=== PATIENT | male | born 1945 | race African-American/Black ===

== ENCOUNTER 2017-03-19 10:34 | Emergency (ER) | payer MEDICARE, OTHER ==
--- NOTE | 2017-03-19 10:46 | UC ---
Dizzy HPI HPI Summary: LAST NIGHT STARTED FEELING LIGHTHEADED AND OVERALL UNWELL. DID NOT SLEEP WELL. WAS COUGHING WITH POST-TUSSIVE EMESIS MULTIPLE TIMES THROUGHOUT THE NIGHT. THIS MORNING FEELS MORE LIGHTHEADED AND SOB. DENIES FEVER OR CHEST PAIN. NO NAUSEA. HAS SCRATCHY THROAT. FEELS VERY TIRED. - History Of Current Complaint Stated Complaint: SORE THROAT, AND DIZZINESS Time Seen by Provider: 03/19/17 10:43 Hx Obtained From: Patient Onset/Duration: Sudden Onset, Lasting Hours, Still Present Timing: Constant Severity Initially: Moderate Severity Currently: Moderate Character: Lightheaded Aggravating Factor(s): Exertion Alleviating Factor(s): Rest Associated Signs And Symptoms: Positive: SOB. Negative: Nausea, Vomiting, Chest Pain, Palpitations, Unsteady Gait - Allergies/Home Medications Allergies/Adverse Reactions: Allergies Allergy/AdvReac Type Severity Reaction Status Date / Time Penicillins Allergy Unknown Unknown Verified 03/19/17 10:55 Reaction Details Morphine Allergy Vomiting Verified 03/19/17 10:55 PMH/Surg Hx/FS Hx/Imm Hx Cardiovascular History: Hypertension Cancer History: Prostate Cancer Other History Of: Negative For: HIV, Hepatitis B, Hepatitis C, Anticoagulant Therapy - Surgical History Surgical History: Yes Surgery Procedure, Year, and Place: PROSTATE REMOVED/ [facility], BILAT. KNEE - Family History Known Family History: Positive: Cardiac Disease, Hypertension - Social History Alcohol Use: Daily Substance Use Type: None Smoking Status (MU): Never Smoked Tobacco Review of Systems Constitutional: Fatigue ENT: Sore Throat Respiratory: Shortness Of Breath, Cough Cardiovascular: Negative Gastrointestinal: Negative All Other Systems Reviewed And Are Negative: Yes Physical Exam Triage Information Reviewed: Yes Appearance: No Pain Distress, Well-Nourished, Ill-Appearing - IILD Eyes: Positive: Conjunctiva Clear ENT: Positive: Hearing grossly normal, Pharynx normal Neck: Positive: Supple, Nontender, No Lymphadenopathy Respiratory: Positive: Normal breath sounds, Decreased breath sounds, Other: - INCREASED WOB Cardiovascular: Positive: Tachycardia Abdomen Description: Positive: Soft Musculoskeletal: Positive: No Edema Neurological: Positive: Alert Psychological: Positive: Age Appropriate Behavior Skin: Negative: rashes Diagnostics - Laboratory Diagnostic Studies Completed/Ordered: EKG WITH RIGHT BUNDLE BRANCH BLOCK. NO PREVIOUS EKG ON SYSTEM TO COMPARE. - EKG Cardiac Rate: Tachycardia Ectopy: None ST Segment: Normal Dizzy Course/Dx - Course Course Of Treatment: TO [facility] [place] ED BY AMBULANCE - Differential Dx/Diagnosis Provider Diagnoses: SOB/TACHYCARDIA/LIGHTHEADED - Physician Notifications Discussed Patient Care With: Kelsi Lerma - TO [facility] [place] ED BY AMBULANCE Time Discussed With Above Provider: 11:15 Instructed by Provider To: Will See In ED Discharge - Discharge Plan Condition: Stable Disposition: TRANS HIGHER LVL OF CARE FAC Referrals: Tootie Livingston MD [Primary Care Provider] -
[2017-03-19 11:11] VITALS: BP 130/70
== END 2017-03-19 11:35 | disposition short-term general hospital (02) ==
LOC: UCEAST 10:34
DX: R06.02 Shortness of breath (principal); R00.0 Tachycardia, unspecified; R42 Dizziness and giddiness; R05 Cough; I10 Essential (primary) hypertension; Z88.0 Allergy status to penicillin; Z88.5 Allergy status to narcotic agent
CPT/HCPCS: 93005; 99213; G0463

== ENCOUNTER 2017-03-19 11:56 | Observation (INO) | payer MEDICARE, OTHER ==
[2017-03-19] MEDS ORDERED: Acetaminophen TAB* 325 MG PO ONE (12:37)
[2017-03-19 12:43] LABS: Hematocrit 42 % (42-52); Hemoglobin 14.1 g/dl (14.0-18.0); Mean Corpuscular HGB Conc 34 g/dl (31-36); Mean Corpuscular Hemoglobin 29 pg (27-31); Mean Corpuscular Volume 85 fL (80-94); Mean Platelet Volume 8 um3 (7.4-10.4); Red Blood Count 4.95 10^6/ul (4.0-5.4); Red Cell Distribution Width 15 % (10.5-15)
[2017-03-19] MEDS: NS 0.9% 1000 ML* 2,000 ML IV ONE ×2 (12:49→14:09)
[2017-03-19 13:02] LABS: Albumin 3.9 g/dL (3.2-5.2); BUN/Creatinine Ratio 12.2 (8-20); C Reactive Protein 85.67 mg/L (< 5.00); Calcium 9.3 mg/dL (8.6-10.3); EGFR African American 80.2 (>60); EGFR Non-African American 62.3 (>60); Globulin 3.3 g/dL (2-4); Magnesium 1.9 mg/dL (1.9-2.7); Potassium 2.9 mmol/L (3.5-5.0); Total Bilirubin 0.7 mg/dL (0.2-1.0); Total Protein 7.2 g/dL (6.4-8.9); Troponin I 0.03 ng/mL (<0.04)
--- NOTE | 2017-03-19 13:07 | RAD ---
Indication: Tachycardia, shortness of breath. Single frontal view of the chest performed at 1247 hours was reviewed. Comparison is made with previous exam dated March 19, 2017. No mediastinal shift is noted. Heart is of normal size and configuration. Lung maya appear clear. IMPRESSION: NO ACTIVE CARDIOPULMONARY DISEASE IS NOTED.
[2017-03-19] MEDS ORDERED: cefTRIAXone(*) 1 GM in NS 0.9% 50 ML* 50 ML IVPB ONE (13:22)
[2017-03-19] MEDS ORDERED: Azithromycin IV(*) 500 MG in NS 0.9% 250 ML* 250 ML IVPB ONE (13:22)
[2017-03-19 13:25] LABS: TSH (Thyroid Stimulating Horm) 0.8 mcIU/mL (0.34-5.60)
[2017-03-19] MEDS ORDERED: Iohexol 350* (CONTRAST) 500 ML MDV IV ONE (13:26)
[2017-03-19] MEDS ORDERED: Potassium Chlor TAB* 20 MEQ TAB.ER PO ONE (13:47)
--- NOTE | 2017-03-19 14:19 | RAD ---
Indication: Shortness of breath, tachycardia. Contrast: Administered 88.0 ml of OMNIPAQUE 350 mg/ml CTA of the chest was performed after IV contrast administration. Coronal and sagittal reconstructed images were obtained. Inferior thyroid lobes are unremarkable there is a low density lesion in the lower pole left lobe measuring up to 15 mm. There is no mediastinal or hilar adenopathy noted. The heart demonstrates no pericardial effusion. The trachea and major bronchi appear patent. No pleural fluid, nodules or masses are noted. The pulmonary arterial tree is well opacified. No evidence of filling defects are noted to suggest pulmonary embolus. No evidence of thoracic aortic aneurysm or dissection is noted. Atherosclerotic aorta is noted. Coronary artery calcifications are noted. IMPRESSION: NO PULMONARY EMBOLUS IS NOTED. NO EVIDENCE OF THORACIC AORTIC DISSECTION OR ANEURYSMAL DILATATION. LOWER POLE LEFT LOBE THYROID NODULE.
[2017-03-19] MEDS ORDERED: Ondansetron INJ* 2 MG/ML VIAL IV PRN (14:49)
[2017-03-19] MEDS ORDERED: NS 0.9% 1000 ML* 1,000 ML IV ONE (14:49)
[2017-03-19] MEDS ORDERED: NS 0.9% 1000 ML* 1,000 ML IV SCH (15:00)
[2017-03-19] MEDS: Acetaminophen TAB* 325 MG PO PRN ×2 (16:13→22:28)
[2017-03-19] MEDS: Hydrocortisone INJ* 100 MG VIAL IV SCH ×2 (17:26→22:18)
[2017-03-19] MEDS: KCL 10 MEQ/50 ML IVPREMIX* 10 MEQ/50 ML BAG IV SCH ×4 (17:49→23:49)
[2017-03-19] MEDS ORDERED: traMADol TAB* 50 MG PO ONE (18:00)
--- NOTE | 2017-03-19 19:49 | ED ---
Alvarado Johnson Natalie, scribed for Eyad Tabor MD on 03/19/17 at 1300 . Respiratory - HPI Summary HPI Summary: The pt is a 71 y/o M BIBA to the ED from [facility] c/o respiratory issues starting last night. The pain is rated 7/10 in severity. The pain is aggravated by nothing and is alleviated by nothing. 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 Pt additionally c/o nonproductive cough, SOB, generalized weakness all over, fever, sore throat, and vomiting. Pt denies chest pain, abd pain, and swelling in ankles. Someone he lives with has bronchitis. The pt doesnt have a history of atrial fibrillation. He takes a diuretic for HTN. - History of Current Complaint Chief Complaint: EDFever Stated Complaint: GENERAL ILLNESS COMING FROM [facility] Time Seen by Provider: 03/19/17 12:30 Hx Obtained From: Patient Onset/Duration: Sudden Onset, Still Present - started last night Initial Severity: Moderate Current Severity: Moderate Pain Intensity: 7 Character: Cough (Nonproductive) Sputum Amount: None Aggravating Factor(s): Nothing Alleviating Factor(s): Nothing Associated Signs and Symptoms: Negative - chest pain, swelling in ankles, Fever , SOB - Allergy/Home Medications Allergies/Adverse Reactions: Allergies Allergy/AdvReac Type Severity Reaction Status Date / Time Penicillins Allergy Unknown Unknown Verified 03/19/17 10:55 Reaction Details Morphine Allergy Vomiting Verified 03/19/17 10:55 Home Medications: Home Medications Metoprolol Tartrate TAB* [Lopressor TAB*] 50 mg PO BID 03/19/17 [History Confirmed 03/19/17] Zoledronic Acid* [Zometa] 4 mg .SEE ORDER SEE INSTRUCTIONS 03/19/17 [History Confirmed 03/19/17] PMH/Surg Hx/FS Hx/Imm Hx Previously Healthy: No Endocrine/Hematology History: Denies: Hx Anticoagulant Therapy, Hx Diabetes, Hx Systemic Lupus Erythematosus, Hx Thyroid Disease Cardiovascular History: Reports: Hx Hypertension Denies: Hx Congestive Heart Failure, Hx Deep Vein Thrombosis, Hx Myocardial Infarction, Hx Pacemaker/ICD Respiratory History: Denies: Hx Asthma, Hx Chronic Obstructive Pulmonary Disease (COPD), Hx Lung Cancer, Hx Pneumonia, Hx Pulmonary Embolism GI History: Denies: Hx Gall Bladder Disease, Hx Gastrointestinal Bleed, Hx Ulcer, Hx Urosepsis History: Reports: Hx Kidney Stones - He was diagnosed 1997. Denies: Hx Dialysis, Hx Renal Disease Musculoskeletal History: Denies: Hx Rheumatoid Arthritis Neurological History: Denies: Hx Dementia, Hx Migraine, Hx Seizures, Hx Transient Ischemic Attacks (TIA) Psychiatric History: Denies: Hx Anxiety, Hx Depression, Hx Schizophrenia, Hx Bipolar Disorder - Cancer History Cancer Type, Location and Year: Prostate - 1997 Hx Chemotherapy: No - Surgical History Surgery Procedure, Year, and Place: PROSTATE REMOVED/ [facility] SUR[facility], BILAT. KNEE Infectious Disease History: No Infectious Disease History: Reports: Hx Shingles - 1994 Denies: Hx Clostridium Difficile, Hx Hepatitis, Hx Human Immunodeficiency Virus (HIV), Hx of Known/Suspected MRSA, Hx Tuberculosis, Hx Known/Suspected VRE , Hx Known/Suspected VRSA, History Other Infectious Disease, Traveled Outside the [place] in Last 30 Days - Family History Known Family History: Positive: Cardiac Disease, Hypertension - Social History Alcohol Use: Daily Substance Use Type: Reports: None Smoking Status (MU): Never Smoked Tobacco Review of Systems Positive: Fever Positive: Sore Throat Negative: Chest Pain Positive: Shortness Of Breath, Cough Positive: Vomiting. Negative: Abdominal Pain Negative: Edema - in ankles Positive: Weakness All Other Systems Reviewed And Are Negative: Yes Physical Exam Triage Information Reviewed: Yes Vital Signs On Initial Exam: Initial Vitals Temp Pulse Resp BP Pulse Ox 100.5 F 137 26 136/84 95 03/19/17 12:12 03/19/17 12:12 03/19/17 12:12 03/19/17 12:12 03/19/17 12:12 Vital Signs Reviewed: Yes Appearance: Positive: Ill-Appearing Skin: Positive: Warm, Skin Color Reflects Adequate Perfusion Head/Face: Positive: Normal Head/Face Inspection Eyes: Positive: EOMI, KENNEDY ENT: Positive: Other - oral mucous moist Respiratory/Lung Sounds: Positive: Breath Sounds Present, Rhonchi Cardiovascular: Positive: IRR, Tachycardia Abdomen Description: Positive: Nontender, Soft Bowel Sounds: Positive: Present Male Genital Exam: Positive: normal genitalia Musculoskeletal: Positive: Other - generalized weakness, trace pedal edema bilaterally Neurological: Positive: Normal, Sensory/Motor Intact, Alert, Oriented to Person Place, Time, Other - no neurological focal deficit Psychiatric: Positive: Affect/Mood Appropriate Diagnostics - Vital Signs Vital Signs Temp Pulse Resp BP Pulse Ox 03/19/17 12:12 100.5 F 137 26 136/84 95 - Laboratory Lab Results: Lab Results 03/19/17 Range/Units 12:25 WBC 11.0 H (3.5-10.8) 10^3/ul RBC 4.95 (4.0-5.4) 10^6/ul Hgb 14.1 (14.0-18.0) g/dl Hct 42 (42-52) % MCV 85 (80-94) fL MCH 29 (27-31) pg MCHC 34 (31-36) g/dl RDW 15 (10.5-15) % Plt Count 198 (150-450) 10^3/ul MPV 8 (7.4-10.4) um3 Neut % (Auto) 78.6 (38-83) % Lymph % (Auto) 7.6 L (25-47) % Irion % (Auto) 12.3 H (1-9) % Eos % (Auto) 0.3 (0-6) % Baso % (Auto) 1.2 (0-2) % Absolute Neuts (auto) 8.7 H (1.5-7.7) 10^3/ul Absolute Lymphs (auto) 0.8 L (1.0-4.8) 10^3/ul Absolute Monos (auto) 1.4 H (0-0.8) 10^3/ul Absolute Eos (auto) 0 (0-0.6) 10^3/ul Absolute Basos (auto) 0.1 (0-0.2) 10^3/ul Absolute Nucleated RBC 0.01 10^3/ul Nucleated RBC % 0.1 Result Diagrams: 03/19/17 12:25 03/19/17 12:25 Lab Statement: Any lab studies that have been ordered have been reviewed, and results considered in the medical decision making process. - Radiology CXR Xray Interpretation: No Acute Changes - No active cardiopulmonary disease is noted. ED physician has reviewed this report. Radiology Interpretation Completed By: Radiologist Chest/Thorax CTA Xray Interpretation: No Acute Changes - 1. No pulmonary embolus is noted. No evidence of thoracic aortic dissection or Aneurysmal dilatation. 2. Lower pole left lobe thyroid nodule. ED physician has reviewed this report. Radiology Interpretation Completed By: Radiologist - EKG 12:16 Cardiac Rate: Tachycardia EKG Rhythm: Atrial Fibrillation - rapid, 126 BPM EKG Interpretation: RBBB. ST depression. Anterior lateral leads. Disposition - Course Course Of Treatment: THE TOTAL 30ML/KG BOLUS FOR POTENTIAL SEPSIS NOT GIVEN DUE TO CONCERN OF POSSIBLE CHF; BNP ELEVATED. BP noted and advised to follow up with PCP. Allergies noted. Medications reviewed. EKG; UNCLEAR IF THIS IS NEW ONSET AFIB OR TACHYCARDIA WITH ECTOPY. ADMIT HOSPITALIST. CRITICAL CARE TIME LAEE THAN 30 MINUTES. - Diagnoses Provider Diagnoses: Tachycardia, Fever, Weakness Discharge - Discharge Plan Condition: Stable Disposition: ADMITTED TO [facility] documentation as recorded by the Alvarado crain Natalie accurately reflects the service I personally performed and the decisions made by me, Eyad Tabor MD.
[2017-03-19] MEDS: Metoprolol Tartrate TAB* 50 mg PO SCH (22:23)
--- NOTE | 2017-03-19 22:39 | HP ---
CC: Dr. Buckley; Dr. Gonzalez * HISTORY AND PHYSICAL: DATE OF ADMISSION: 03/19/17 PRIMARY CARE PROVIDER: Dr. Buckley. ATTENDING PHYSICIAN WHILE IN THE HOSPITAL: Dr. Cooley * (report being dictated by Eulalio Fournier NP). CHIEF COMPLAINT: Weakness. HISTORY OF PRESENT ILLNESS: Mr. Lynn is a 71-year-old male patient. He has a history of hypertension, prostate cancer, on Lupron and chronic steroid therapy and hyperlipidemia. He comes in to our ER today stating that last night he just was not feeling well. He woke up in the middle of the night. He was having episodes of vomiting. He has vomited about 5 times. He denied having any abdominal pain. He says he felt nauseous, weak. He had no diarrhea. He says that he has been coughing. He says that it has been hurting to cough. He denied having any chest pain or again abdominal pain. He says that he felt weak. He did not really want to eat. His appetite was down. He just was very tired. This was abnormal for him. He was concerned because he was not any better this morning. He decided to come into the ED. He denied any palpitations. He denied having any chest pain with the exception when he takes a deep breath, it does hurt. He denied having any shortness of breath. He denied having any worsening swelling, pain in the calves and denied having any loss of consciousness or any skin ulcerations or any rashes. He came into the ED, was evaluated. He was noted that he had a low- grade fever. He had a mild white count. He was noted to be hypokalemic. He appeared to be in an irregular heart beat, it is unclear if this was AFib, but, because of these findings, we were asked to evaluate for admission. PAST MEDICAL HISTORY: Significant for: 1. Hyperlipidemia. 2. Hypertension. 3. Prostate cancer. PAST SURGICAL HISTORY: 1. He has had a TURP. 2. Bilateral total knee replacement. 3. He has had a hernia repair. HOME MEDICATIONS: According to the list that he brought in includes: 1. Zometa 4 mg as prescribed IV. 2. Lopressor 50 mg p.o. b.i.d. 3. Allopurinol 300 mg p.o. daily. 4. Zytiga 1000 mg daily. 5. Simvastatin 20 mg daily. 6. Potassium 10 mEq p.o. daily. 7. Nifedipine 30 mg p.o. daily. 8. Lupron 30 mg IM as directed. 9. Prednisone 7.5 mg daily. 10. Maxzide 1 tablet p.o. daily. ALLERGIES TO MEDICATIONS: Include PENICILLIN and MORPHINE. FAMILY HISTORY: Mother had a history of diabetes. Father had a history of lung cancer. SOCIAL HISTORY: He does not smoke. He does not drink. Surrogate decision maker is his son, Roland. REVIEW OF SYSTEMS: There is a low-grade fever here of 100.5. There is no significant weight change. There was no double vision. He denied having any ear discharge. He denied having any rhinorrhea. No sore throat. No thyroid enlargement. He denied having any chest pain. There was no orthopnea. No nocturnal dyspnea. There was no abdominal pain. There was some nausea with vomiting. There was no dysuria. No frequency. There was no seizure. There was no loss of consciousness. No pruritus and no skin ulcerations. Review of 14- systems was completed, all others negative. PHYSICAL EXAMINATION GENERAL: At this time, Mr. Lynn is a 71-year-old male patient. He is sitting in the ED stretcher. He does not appear to be in acute distress. He just says that he feels weak. VITAL SIGNS: Blood pressure 116/83 with the pulse initially when he came in was 142, it is now 92, respirations were 22, his O2 sat was 97%, temperature 100.5. HEENT: Head: Atraumatic, normocephalic. Eyes: EOMs are intact. Sclerae anicteric, not pale. Throat: Oral mucosa appears to be dry. No oropharyngeal erythema. NECK: Supple. LUNGS: Clear to auscultation bilaterally. No wheezes, rales, or rhonchi. HEART: Sounds S1, S2. He is in a regular rate and rhythm. No murmurs, rubs, or gallops. ABDOMEN: Soft, flat, nontender. Bowel sounds present. EXTREMITIES: Pulses were 2+ throughout. He had no peripheral edema. He is moving all 4 extremities with 5/5 strength. NEUROLOGIC: The patient is awake, he is alert, he is oriented x3. His tongue is midline. Batch Dumper were equal. No gross focal deficits. SKIN: His skin was intact. DIAGNOSTIC STUDIES/LAB DATA: Labs revealed a WBC of 11.0, RBC of 4.95, hemoglobin of 14.1, hematocrit of 42, platelet count of 198. His INR was 1. His PTT was 34.5. His D-dimer was 304. His sodium was 138, potassium was 2.9, chloride was 103, his bicarb was 23, his BUN was 14, creatinine 1.15, glucose 139, lactic 2.9, calcium 9.3, mag 1.9, total bili 0.7, AST 22, ALT 17, alk phos 43. CK 88, CK-MB 1.5. Troponin 0.03. CRP of 85. BNP 251. Albumin 3.9, lipase was 30, TSH was normal. Cortisol is pending. Flu is negative. He had a chest CTA, which revealed no pulmonary embolus noted. No evidence of thoracic aortic dissection or aneurysmal dilatation. Lower pole left lobe thyroid nodule. He had a chest x-ray obtained today, which revealed no active cardiopulmonary disease. He had several EKGs here in the ED, his initial one appears to be a possible atrial fibrillation or atrial flutter, it is unclear. His heart rate was 129. He had a right bundle-branch block with no previous for comparison. No gross ST elevation was noted. I reviewed it with most recent one, where he has slowed down, his rate is 94, but again this could be a possible junctional rhythm. Some of these QRS are conducted with T-wave. He does have some QRS complex with no conduction, which may be atypical Aflutter or junctional rhythm. He does have a right bundle-branch block and again there are no signs of ST elevations at this point. There was a previous one back in 2002, which showed a normal sinus rhythm, rate of 61. Old medical records were reviewed. ASSESSMENT AND PLAN: Mr. Lynn is a 71-year-old male patient coming into the ED today with complaints of just not feeling well, fever, feeling very weak and fatigued. We were asked to evaluate for admission. He will be admitted under observation status for: 1. Weakness. I suspect he may have an underlying viral illness. He was given one dose of antibiotics here in the ED, but I am not going to continue those unless he spikes a high-grade fever or if his cultures come back. I am getting a urine as well, which is pending. His flu is negative. I am checking his cortisol level as well. He is on chronic steroids and if he has a viral illness , he may need stress dosed steroids. I am going to start them to see if this improves his symptoms. We will hydrate the patient. We will continue his supportive care. We will repeat the lactic acid as it was 3 and we will continue to follow. 2. Hypokalemia. We will replace this. 3. Irregular heart rate. At this point, he is back to rate 92. He appears he does have some irregular heart conduction at times, which may be a junctional, again atypical atrial flutter. I did touch base with Dr. Gonzalez, he will evaluate the patient. The plan would be replace his potassium, get that close to 4 as possible. I suspect it is low because he has been vomiting and taking the hydrochlorothiazide with the triamterene diuretics, which is probably why his potassium is low. We will replace this and we will follow. He may have a new onset AFib or atrial flutter and if that is determined to be the case, we will start him on Eliquis, but we are not going to start that just until after we replace the potassium and we are able to reevaluate. We will get an echo and he was warfarin in the past, but it was just for a DVT prevention due to a knee replacement. 4. Hypertension. I will continue his meds with the exception of the mild diuretic. 5. History of prostate cancer. Continue with Zytiga. 6. Hyperlipidemia. Continue statin therapy. 7. Code status. Full code. 8. Fluids, electrolytes and nutrition. He can have clear liquid diet. TIME SPENT: Time spent on admission was 60 minutes, greater than half the time was spent [id number] with the patient obtaining my history and physical, other half time was spent going over the plan of care with the patient and implementing plan of care. I did discuss the plan of care with my attending, Dr. Cooley, he is in agreement. EULALIO FOURNIER, GIAN [id number]/[facility] #: [id number] [facility]
[2017-03-19 22:57] LABS: Urine Bacteria Absent (Absent); Urine Bilirubin Negative (Negative); Urine Glucose 2+(150 mg/dL) (Negative); Urine Nitrite Negative (Negative)
[2017-03-20] MEDS: Acetaminophen TAB* 325 MG PO PRN (06:02)
[2017-03-20 06:08] LABS: Hematocrit 36 % (42-52); Hemoglobin 12.2 g/dl (14.0-18.0); Mean Corpuscular HGB Conc 34 g/dl (31-36); Mean Corpuscular Hemoglobin 29 pg (27-31); Mean Corpuscular Volume 85 fL (80-94); Mean Platelet Volume 8 um3 (7.4-10.4); Red Blood Count 4.27 10^6/ul (4.0-5.4); Red Cell Distribution Width 15 % (10.5-15)
[2017-03-20 06:20] LABS: BUN/Creatinine Ratio 14.6 (8-20); EGFR African American 118.4 (>60); EGFR Non-African American 92.1 (>60); Potassium 3.4 mmol/L (3.5-5.0)
[2017-03-20] MEDS: Metoprolol Tartrate TAB* 50 mg PO SCH (08:09)
[2017-03-20] MEDS: Hydrocortisone INJ* 100 MG VIAL IV SCH (08:09)
[2017-03-20] MEDS ORDERED: Potassium Chlor TAB* 20 MEQ TAB.ER PO ONE (08:38)
[2017-03-20] MEDS ORDERED: ABIRATERONE 250 MG PO SCH (09:00)
[2017-03-20] MEDS ORDERED: Potassium Chlor TAB* 10 MEQ TAB.ER PO SCH (09:00)
[2017-03-20] MEDS ORDERED: Atorvastatin* 10 MG TAB PO SCH (09:00)
[2017-03-20] MEDS ORDERED: Allopurinol TAB* 300 MG PO SCH (09:00)
[2017-03-20] MEDS ORDERED: NIFEdipine ER TAB* 30 MG PO SCH (09:00)
[2017-03-20 13:17] VITALS: BP 153/75
--- NOTE | 2017-03-20 14:30 | ECHO ---
Patient: JOSE KRAMER [facility] Rec#: [id number] : 1945 Date: 03/20/2017 Age: 71y Height: 187.96 cm / 74.0 in Weight: 141.97 kg / 312.9 lbs Sex: M BSA: 2.63 Room#: 443 Admit Date#: 03/19/2017 Type: Inpatient Referring: Eulalio Fournier NP Reading: Tay Gonzalez MD Crime Investigator Special Agent: Ariane Ruvalcaba RDCS,RDMS CC: Tootie Livingston MD Transthoracic Echocardiogram Indication: Abnormal EKG BP: 144/60 HR: 66 Rhythm: NSR Findings History: HTN, HLD, prostate cancer Technical Comments: The study quality is fair. The study is technically limited due to poor parasternal windows. Left Ventricle: The left ventricular chamber size is normal. Moderate concentric left ventricular hypertrophy is observed. The estimated ejection fraction is 55-60%. Abnormal left ventricular diastolic function is observed. The left ventricular diastolic filling pattern is consistent with pseudonormalization. Left Atrium: The left atrium is moderately dilated. Right Ventricle: The right ventricular chamber size and systolic function are within normal limits. Right Atrium: The right atrium is mild to moderately dilated. Aortic Valve: The aortic valve is trileaflet. The aortic valve leaflets are mildly thickened.and mildly restricted. There is aortic annular calcification. There is a trace of aortic regurgitation. There is no evidence of aortic stenosis. Mitral Valve: The mitral valve leaflets appear normal. There is a trace of mitral regurgitation. There is no evidence of mitral stenosis. Tricuspid Valve: The tricuspid valve leaflets are normal. There is mild tricuspid regurgitation. No pulmonary hypertension is noted. Pulmonic Valve: The pulmonic valve structure is not well visualized. Pericardium: There is no significant pericardial effusion. Aorta: There is borderline dilatation of the ascending aorta. The aortic arch is not well visualized. There is no dilation of the aortic root. Pulmonary Artery: The main pulmonary artery is not well visualized. Venous: The inferior vena cava appears normal in size. There is a greater than 50% respiratory change in the inferior vena cava dimension. Summary: There was not any prior study for comparison. Conclusions The study quality is fair. Moderate concentric left ventricular hypertrophy is observed. The estimated ejection fraction is 55-60%. The left ventricular diastolic filling pattern is consistent with pseudonormalization. The left atrium is moderately dilated. The right atrium is mild to moderately dilated. The aortic valve leaflets are mildly thickened and mildly restricted. There is a trace of mitral regurgitation. There is mild tricuspid regurgitation. There is borderline dilatation of the ascending aorta. Measurements Name Value Normal Range RVIDd (AP) 2D 2.7 cm (0.9 - 2.6) RVDdMajor (2D) 3.7 cm (2.2 - 4.4) RAd ISD 4CH 5.5 cm (3.4 - 4.9) RA (A4C)W 5.4 cm (2.9 - 4.6) IVSd (2D) 1.5 cm (0.6 - 1) LVPWd (2D) 1.6 cm (0.6 - 1) LVIDd (2D) 5 cm (3.6 - 5.4) LVIDs (2D) 3.7 cm - LV FS (2D) 26 % (25 - 45) Aortic Annulus 2.3 cm (1.4 - 2.6) Ao root diameter (2D) 3.3 cm (2.1 - 3.5) Ascending Ao 3.5 cm (2.1 - 3.4) LA dimension (AP) 2D 3.9 cm (2.3 - 3.8) LAd ISD 4CH 5.8 cm (2.9 - 5.3) LA ISD 4CH W 4.9 cm (2.5 - 4.5) Name Value Normal Range LA ESV SP 4CH (A/L) 74.12 ml - LA ESV SP 2CH (A/L) 107.7 ml - LA ESV BP (A/L) 93.26 ml - LA ESV BP (A/L) index 35.5 ml/m2 - LA ESV SP 4CH (MOD) 67.22 ml - LA ESV SP 2CH (MOD) 101.53 ml - Name Value Normal Range MV E-wave Vmax 0.8 m/sec - MV deceleration time 199 msec - MV A-wave Vmax 0.7 m/sec - MV E:A ratio 1.1 ratio - LV septal e' Vmax 0.07 m/sec - LV lateral e' Vmax 0.1 m/sec - LV E:e' septal ratio 11.5 ratio - LV E:e' lateral ratio 8 ratio - Name Value Normal Range AV Vmax 1.8 m/sec - AV VTI 36 cm - AV peak gradient 13 mmHg - AV mean gradient 6 mmHg - LVOT diameter 2.3 cm - LVOT Vmax 1 m/sec - LVOT VTI 24.5 cm - LVOT peak gradient 4 mmHg - LVOT mean gradient 2.4 mmHg - DOI (VTI) 0.7 ratio - KAMILLE (continuity Vmax) 2.3 cm2 - K[place]LE (continuity VTI) 2.8 cm2 - Name Value Normal Range TR Vmax 2.4 m/sec - TR peak gradient 20 mmHg - RAP 3 mmHg - RVSP 23 mmHg - IVC diameter 1.9 cm - Name Value Normal Range PV Vmax 0.7 m/sec - PV peak gradient 2 mmHg -
--- NOTE | 2017-03-21 06:17 | DS ---
ADDENDUM NOW INCLUDED ON THIS REPORT CC: Dr. Livingston; Dr. Gonzalez; Dr. Hsieh * DISCHARGE SUMMARY: DATE OF ADMISSION: 03/19/17 DATE OF DISCHARGE: 03/20/17 PRIMARY CARE PROVIDER: Dr. Livingston. DISCHARGE DIAGNOSES: 1. Intractable nausea and vomiting likely due to viral syndrome. 2. Hypokalemia due to nausea and vomiting. 3. EKG changes consistent with hypokalemia that resolved. 4. Incidentally found 15 mm left thyroid nodule to be followed as outpatient. SECONDARY DIAGNOSES: 1. Hyperlipidemia. 2. History of hypertension. 3. History of prostate cancer. 4. Status post TURP. MEDICATIONS AT DISCHARGE: Include: 1. Zometa 4 mg as prescribed IV. 2. Lopressor 50 mg b.i.d. 3. Allopurinol 300 mg daily. 4. Zytiga 1000 mg daily. 5. Simvastatin 20 mg daily. 6. Potassium chloride, the patient is instructed to double his dose to 20 mEq daily for the next 7 days and then continue on 10 mg daily afterwards. 7. Nifedipine 30 mg daily. 8. Lupron 30 mg IM as directed. 9. Prednisone 7.5 mg daily. 10. Triamterene/hydrochlorothiazide 75/50 one tablet daily. HOSPITALIZATION COURSE: Sylvester Lynn is a 71-year-old male, who all of a sudden developed nausea, vomiting, and diarrhea that lasted for several hours. He presented to the ED, complaining of weakness and he was noted to have severe hypokalemia with potassium level of 2.9. The patient was also noted to have bout of something that appeared to be either atypical atrial flutter or atrial arrhythmia. The changes on the EKG were consistent with hypokalemia and resolved by the time of the patient's discharge when his potassium was mostly replaced. By the time of discharge, his youth nutritional monitor bed continues to show normal sinus rhythm with somewhat atypical P-wave morphology and right bundle-branch block, but no evidence of prior arrhythmia. The digital assistant's on -call was curbsided and noted that the patient's EKG changes were transient and related to hypokalemia. There was no indication for further monitoring or further evaluation as well as hypokalemia is controlled. The patient's transthoracic echocardiogram showed EF of 55% to 60% with left ventricular diastolic filling pattern consistent with pseudonormalization. There was moderate concentric LVH, mild tricuspid regurgitation, and trace mitral regurgitation. The patient's troponins were 0.03 throughout his hospital stay. His elevated lactic acid on admission resolved after eventual rehydration. His TSH was elevated at 0.8. By the time of discharge, the patient had a full meal and had no problems with nausea and vomiting and denied abdominal pain. He ambulated without any problems. He is going to be discharged with recommendation to follow up with his primary care provider in approximately 1 to 2 weeks. His potassium on the day of discharge in the morning was 3.4 and in addition to that he received 60 mEq of potassium chloride prior to discharge. His potassium dose is going to be doubled to 20 mEq daily for the next 7 days. PHYSICAL EXAMINATION: At the time of discharge, blood pressure 153/75, heart rate of 66 and regular, respiratory rate 18, oxygen saturation 99% on room air, temperature 99.2. General: The patient is a very pleasant 71-year-old male, whose BMI is 40. The patient is not in acute distress. Alert, awake, and oriented x3. HEENT: Head: Atraumatic, normocephalic. Eyes: Pupils are equal , reactive to light and accommodation. Oropharynx clear. Mucosa moist. Neck: Supple. No JVD. No bruits bilaterally. Cardiovascular: Regular rate and rhythm. No murmurs. Respiratory: Clear to auscultation bilaterally. Abdomen: Soft, nontender. Bowel sounds are present in all 4 quadrants. Extremities: There is no edema. Pulses are +2 bilaterally. No clubbing or cyanosis. Neuro Evaluation: Speech is clear. Cranial nerves II through XII are grossly intact. Motor strength is 5/5 bilaterally. DIAGNOSTIC STUDIES: Please note that the patient's CT angiogram was obtained on admission and showed no pulmonary embolism and no evidence of thoracic aortic dissection or aneurysmal dilatation. Incidentally, there was found a 15 mm of left lower lobe thyroid nodule. At this point, the recommendation is to follow up with an outpatient ultrasound in regards to the left thyroid nodule. Please note that this is a short summary of the patient's hospitalization. Please refer to further medical records for details. TIME SPENT: Approximately 45 minutes was spent on this patient's discharge. ADDENDUM: Please note that the patient actually take 2 tablets of 10 mEq of potassium chloride in the morning and 2 tablets at night and not on the one tablet as dictated above. Due to that, I will increase the patient's potassium supplements to a total of 4 tablets, which is 40 mEq in the morning and continue at 20 mEq every night for a total of 7 days and then to go back to his total of 40 mEq daily as previously taken. [id number]/CPS #: [id number]/CPS #: [id number] [facility]
--- NOTE | 2017-03-21 09:35 | DS ---
ADDENDUM: * Please note that the patient actually take 2 tablets of 10 mEq of potassium chloride in the morning and 2 tablets at night and not on the one tablet as dictated above. Due to that, I will increase the patient's potassium supplements to a total of 4 tablets, which is 40 mEq in the morning and continue at 20 mEq every night for a total of 7 days and then to go back to his total of 40 mEq daily as previously taken. [id number]/CPS #: [id number] [facility]
== END 2017-03-20 15:59 | disposition home or self-care (01) ==
LOC: ED 11:56 → MEDTELE 16:04
PROVIDERS: ADMIT Internal Medicine; ATTEND Internal Medicine
DX: R11.2 Nausea with vomiting, unspecified (principal); E87.6 Hypokalemia; E04.1 Nontoxic single thyroid nodule; E78.5 Hyperlipidemia, unspecified; Z85.46 Personal history of malignant neoplasm of prostate; I51.7 Cardiomegaly; R94.31 Abnormal electrocardiogram [ECG] [EKG]; Z79.899 Other long term (current) drug therapy; Z88.0 Allergy status to penicillin; Z88.5 Allergy status to narcotic agent; R06.02 Shortness of breath
CPT/HCPCS: 36415; 71010; 71275; 80048; 80053; 81003; 81015; 82533; 82550; 82553; 83605; 83690; 83735; 83880; 84443; 84484; 85025; 85379; 85610; 85730; 86140; 87040; 87086; 87502; 93005; 93306; 96361; 96365; 96367; 96375; 96376; 99284; A9270-GY; J0456; J0696; J1720; J3480; Q9967

== ENCOUNTER 2017-08-27 10:38 | Emergency (ER) | payer MEDICARE, OTHER ==
[2017-08-27] MEDS ORDERED: HYDROcodone/ACETAMIN 5-325 MG* 1 TAB PO ONE (11:08)
[2017-08-27 12:26] LABS: ABS Basophils 0 10^3/ul (0-0.2); ABS Eosinophils 0.1 10^3/ul (0-0.6); ABS Lymphocytes 1.4 10^3/ul (1.0-4.8); ABS Monocytes 0.6 10^3/ul (0-0.8); ABS Neutrophils 6.9 10^3/ul (1.5-7.7); ABS Nucleated RBC 0 10^3/ul; Eosinophil % 1.2 % (0-6); Hematocrit 42 % (42-52); Hemoglobin 14.1 g/dl (14.0-18.0); Lymphocyte % 15.5 % (25-47); Mean Corpuscular HGB Conc 34 g/dl (31-36); Mean Corpuscular Hemoglobin 29 pg (27-31); Mean Corpuscular Volume 87 fL (80-94); Mean Platelet Volume 8.1 um3 (7.4-10.4); Nucleated Red Blood Cells % 0; Platelet Count 202 10^3/ul (150-450); Red Blood Count 4.81 10^6/ul (4.0-5.4); Red Cell Distribution Width 15 % (10.5-15)
[2017-08-27 13:16] VITALS: BP 153/97
--- NOTE | 2017-08-27 13:17 | ED ---
Alvaraod Johnson Natalie, scribed for Jacob Castro MD on 08/27/17 at 1144 . Upper Extremity Pain - HPI Summary HPI Summary: The patient is a 72 y/o M presenting to the ED c/o left shoulder pain starting three weeks ago with gradual worsening. He has visited Dr. Livingston for the pain , who prescribed him Tramadol and sent him to Dr. Allison. Dr. Allison took xrays and found that the pt has a torn rotator cuff. The pt had an MRI yesterday, and his pain has been worse since then. The pain is rated 10/10 in severity. He has taken Tramadol, Tylenol, and Alieve to treat the pain [employer] to no relief. Pt additionally c/o decreased ROM and pain with movement. He states he has previous dislocation of the shoulder approximately 15 years ago. He has an appointment with Dr. Allison next week. - History of Current Complaint Chief Complaint: EDShoulderClavicleInj Stated Complaint: SHOULDER PAIN Time Seen by Provider: 08/27/17 10:48 Hx Obtained From: Patient Mechanism Of Injury: Other - started hurting after using lawnmower, worse after MRI Onset/Duration: Started Weeks Ago - three weeks, Still Present, Worse Since - yesterday after MRI Timing: Constant, Lasting Weeks Severity Initially: Moderate Severity Currently: Severe Pain Location: Shoulder - left Aggravating Factor(s): Movement Alleviating Factor(s): Nothing Associated Signs & Symptoms: Positive: Negative - chills, Other - decreased ROM Related History: Other: - dislocation of left shoulder - Allergies/Home Medications Allergies/Adverse Reactions: Allergies Allergy/AdvReac Type Severity Reaction Status Date / Time Penicillins Allergy Unknown Unknown Verified 08/27/17 10:41 Reaction Details adhesive tape Allergy Rash Verified 08/27/17 10:41 morphine Allergy Vomiting Verified 08/27/17 10:41 Home Medications: Home Medications Allopurinol TAB* [Zyloprim 300 MG TAB*] 300 mg PO DAILY 08/27/17 [History Confirmed 08/27/17] Calcium Carbonate/Vitamin D3 [Calcium 500 + Vit D Caplet] 1 tab PO DAILY [History Confirmed 08/27/17] Multivitamins/Minerals TAB* [Theragran/minerals TAB*] 1 tab PO DAILY 08/27/17 [ History Confirmed 08/27/17] NIFEdipine ER TAB* [Procardia Xl TAB*] 30 mg PO DAILY 08/27/17 [History Confirmed 08/27/17] Potassium Chlor TAB* [Klor Con ER TAB*] 20 meq PO TID 08/27/17 [History Confirmed 08/27/17] Potassium Citrate (NF) [Urocit-K 10 (NF)] 20 meq PO BID 08/27/17 [History Confirmed 08/27/17] Simvastatin TAB(NF) [Zocor(NF)] 60 mg PO DAILY 08/27/17 [History Confirmed 08/27] PMH/Surg Hx/FS Hx/Imm Hx Endocrine/Hematology History: Denies: Hx Anticoagulant Therapy, Hx Diabetes, Hx Systemic Lupus Erythematosus, Hx Thyroid Disease Cardiovascular History: Reports: Hx Hypertension Denies: Hx Congestive Heart Failure, Hx Deep Vein Thrombosis, Hx Myocardial Infarction, Hx Pacemaker/ICD Respiratory History: Denies: Hx Asthma, Hx Chronic Obstructive Pulmonary Disease (COPD), Hx Lung Cancer, Hx Pneumonia, Hx Pulmonary Embolism GI History: Denies: Hx Gall Bladder Disease, Hx Gastrointestinal Bleed, Hx Ulcer, Hx Urosepsis History: Reports: Hx Kidney Stones - He was diagnosed 1997. Denies: Hx Dialysis, Hx Renal Disease Musculoskeletal History: Denies: Hx Rheumatoid Arthritis Sensory History: Reports: Hx Contacts or Glasses Denies: Hx Hearing Aid Opthamlomology History: Reports: Hx Contacts or Glasses Neurological History: Denies: Hx Dementia, Hx Migraine, Hx Seizures, Hx Transient Ischemic Attacks (TIA) Psychiatric History: Denies: Hx Anxiety, Hx Depression, Hx Schizophrenia, Hx Bipolar Disorder - Cancer History Cancer Type, Location and Year: Prostate - 1997 Hx Chemotherapy: No - Surgical History Surgery Procedure, Year, and Place: PROSTATE REMOVED/ HERNIA SURGURY, BILAT KNEE, Left index removed. Infectious Disease History: No Infectious Disease History: Reports: Hx Shingles - 1994 Denies: Hx Clostridium Difficile, Hx Hepatitis, Hx Human Immunodeficiency Virus (HIV), Hx of Known/Suspected MRSA, Hx Tuberculosis, Hx Known/Suspected VRE , Hx Known/Suspected VRSA, History Other Infectious Disease, Traveled Outside the [place] in Last 30 Days - Family History Known Family History: Positive: Cardiac Disease, Hypertension - Social History Alcohol Use: Daily Substance Use Type: Reports: None Smoking Status (MU): Never Smoked Tobacco Review of Systems Negative: Fever Positive: Decreased ROM, Other - pain in left shoulder All Other Systems Reviewed And Are Negative: Yes Physical Exam - Summary Physical Exam Summary: Appearance: The patient is well-nourished in no acute distress and in no acute pain. Skin: The skin is warm and dry and skin color reflects adequate perfusion. HEENT: The head is normocephalic and atraumatic. The pupils are equal and reactive. The conjunctivae are clear and without drainage. Nares are patent and without drainage. Mouth reveals moist mucous membranes and the throat is without erythema and exudate. The external ears are intact. The ear canals are patent and without drainage. The tympanic membranes are intact. Neck: the neck is supple with full range of motion and non-tender. There are no carotid bruits. There is no neck vein distension. Respiratory: Chest is non-tender. Lungs are clear to auscultation and breath sounds are symmetrical and equal. Cardiovascular: Heart is regular rate and rhythm. There is no murmur or rub auscultated. There is no peripheral edema and pulses are symmetrical and equal. Abdomen: The abdomen is soft and non-tender. There are normal bowel sounds heard in all four quadrants and there is no organomegaly palpated. Musculoskeletal: There is no back tenderness noted. Extremities are non-tender with full range of motion. Left trapezius tenderness. There is good capillary refill. There is no peripheral edema or calf tenderness elicited. Neurological: Patient is alert and oriented to person, place and time. The patient has symmetrical motor strength in all four extremities. Cranial nerves are grossly intact. Deep tendon reflexes are symmetrical and equal in all four extremities. Psychiatric: The patient has an appropriate affect and does not exhibit any anxiety or depression. Triage Information Reviewed: Yes Vital Signs On Initial Exam: Initial Vitals Temp Pulse Resp BP Pulse Ox 97 F 67 15 144/109 99 08/27/17 10:42 08/27/17 10:42 08/27/17 10:42 08/27/17 10:42 08/27/17 10:42 Vital Signs Reviewed: Yes Diagnostics - Vital Signs Vital Signs Temp Pulse Resp BP Pulse Ox 08/27/17 10:42 97 F 67 15 144/109 99 - Laboratory Lab Results: Lab Results 08/27/17 08/27/17 Range/Units 12:13 12:13 WBC 9.0 (3.5-10.8) 10^3/ul RBC 4.81 (4.0-5.4) 10^6/ul Hgb 14.1 (14.0-18.0) g/dl Hct 42 (42-52) % MCV 87 (80-94) fL MCH 29 (27-31) pg MCHC 34 (31-36) g/dl RDW 15 (10.5-15) % Plt Count 202 (150-450) 10^3/ul MPV 8.1 (7.4-10.4) um3 Neut % (Auto) 76.1 (38-83) % Lymph % (Auto) 15.5 L (25-47) % [place] % (Auto) 7.0 (0-7) % Eos % (Auto) 1.2 (0-6) % Baso % (Auto) 0.2 (0-2) % Absolute Neuts (auto) 6.9 (1.5-7.7) 10^3/ul Absolute Lymphs (auto) 1.4 (1.0-4.8) 10^3/ul Absolute Monos (auto) 0.6 (0-0.8) 10^3/ul Absolute Eos (auto) 0.1 (0-0.6) 10^3/ul Absolute Basos (auto) 0 (0-0.2) 10^3/ul Absolute Nucleated RBC 0 10^3/ul Nucleated RBC % 0 C-Reactive Protein 7.09 H (< 5.00) mg/L Result Diagrams: 08/27/17 12:13 Lab Statement: Any lab studies that have been ordered have been reviewed, and results considered in the medical decision making process. Re-Evaluation - Re-Evaluation First Eval Re-Evaluation Time: 12:53 Change: Improved Comment: I spoke with the patient about being discharge home with immobilizer use and prescription. Course/Dx - Course Course Of Treatment: Mr. Lynn presents with 3 weeks of left shoulder pain with movement. He saw his PCP and also Dr. Warren who believe he has a rotator cuff tear and obtained an MRI yesterday which is not available to us at this time. Mr. Lynn was pinned inside the MRI machine uncomfortably and subsequent to that his left shoulder pain worsened. He is immune suppressed, not febrile and has no leukocytosis. His CRP is very slightly elevated consistent with inflammation. He was temporarily placed in a shoulder immobilizer to try to give him some symptomatic relief and given pain medication. - Diagnoses Provider Diagnoses: Shoulder pain Discharge - Sign-Out/Discharge Documenting (check all that apply): Discharge/Admit/Transfer - Discharge Plan Condition: Stable Disposition: HOME Prescriptions: oxyCODONE/Acetamin 5/325 MG* [Percocet 5/325 TAB*] 1 tab PO Q6H PRN #20 tab MDD 4 PRN Reason: Pain Patient Education Materials: Shoulder Pain (ED) Referrals: Sourav Allison MD [Medical Doctor] - As Soon As Possible Tootie Livingston MD [Primary Care Provider] - Additional Instructions: Please take medication as prescribed. Use immobilizer, and continue to take Alieve as needed for pain relief. Follow up with Dr. Allison next week at your appointment. Return to the emergency department for any new or worsening symptoms. - Billing Disposition and Condition Condition: STABLE Disposition: HOME The documentation as recorded by the Alvarado crain Natalie accurately reflects the service I personally performed and the decisions made by me, Jacob Castro MD.
== END 2017-08-27 13:19 | disposition home or self-care (01) ==
LOC: ED 10:38
DX: M25.512 Pain in left shoulder (principal); I10 Essential (primary) hypertension; Z88.0 Allergy status to penicillin; Z88.5 Allergy status to narcotic agent; Z79.899 Other long term (current) drug therapy
CPT/HCPCS: 36415; 85025; 86140; 99282

== ENCOUNTER 2019-06-25 06:56 | Day surgery (SDC) | payer MEDICARE, OTHER ==
--- NOTE | 2019-06-20 13:23 | HP ---
CC: Dr. Alfaro* HISTORY AND PHYSICAL: DATE OF PLANNED ADMISSION AND SURGERY: 06/25/19 Please refer to the detailed history and physical dated 06/18/[address] Wesley Alfaro. The present dictation is the urology pre-op note. . HISTORY OF PRESENT ILLNESS: Mr. 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 Mr. Lynn was diagnosed 1997 with [place] 7 adenocarcinoma of the prostate treated by radical retropubic prostatectomy. He did well until 2002 when his PSA increased to 0.4. He was then given a full course of salvage radiation therapy, completed in December 2002. He initially improved; however, PSA started progressing while on hormone ablation therapy. He was followed and treated by Oncology with Dr. Alfaro. The prostate cancer became castrate- resistant, and in July 2014, he was started on abiraterone, prednisone in addition to the Lupron. In October 2018, he was noted to have left hydroureteronephrosis and he had a cystoscopy and insertion of the left ureteral stent. The stent insertion was very difficult due to invasion of the left trigone and obstruction of the distal ureter by the prostate malignancy. The stent has not been replaced since that time. The patient has continued his followup with Dr. Alfaro, and because of progressive and diffuse metastatic disease involving his skeletal system, he was started on chemotherapy with Taxotere. The patient also has been incontinent of urine and has been on chronic catheter drainage, and the Pinto is being replaced periodically. The last CT scan was done 2 months ago and it showed the metastatic bony disease , the left stent in good position, the left kidney has become partially atrophic. No right hydronephrosis. Considering the same stent has been in the left kidney for 7 months now, and because of concern about him becoming septic if the stent is removed or is not replaced, the patient is admitted for cystoscopy and left ureteral stent exchange. The physical examination and the medications he is on are all detailed in Dr. Alfaro's history and physical. PLAN: The plan is for cystoscopy and left ureteral stent exchange. I discussed the procedure with the patient. He was started on Cipro pre operatively. [id number]/[facility] #: [id number] [facility]
[~2019-06-25 06:56] MED LIST: Buffered Lidocaine 1% SYRIN* 1 ML/SYRINGE INTRADERM ONE; Lactated Ringers 1000 ML Bag* 1,000 ML IV SCH
[2019-06-25] MEDS ORDERED: Levofloxacin 750 MG IVPREMIX(* 750 MG/150 ML BAG ONE (07:32)
[2019-06-25] MEDS ORDERED: Iohexol 180 (CONTRAST) 10 ML SDV IV ONE (08:43)
[2019-06-25] MEDS ORDERED: fentaNYL* 50 MCG/ML 2 ML VIAL (100 MCG VIAL) ONE (09:22)
[2019-06-25] MEDS ORDERED: Lidocaine 2% PF * 5 ML VIAL ONE (09:22)
[2019-06-25] MEDS ORDERED: Succinylcholine* 20 MG/ML 10 ML VIAL ONE (09:22)
[2019-06-25] MEDS ORDERED: Propofol* 10 MG/ML 20 ML BTL ONE (09:22)
[2019-06-25] MEDS ORDERED: Midazolam* 1 MG/ML 2 ML VIAL (2 MG) ONE (09:23)
[2019-06-25] MEDS ORDERED: Phenylephrine 40 MCG/ML SYRINGE ONE (09:42)
[2019-06-25] MEDS ORDERED: Phenylephrine 10 MG/ML VIAL* 1 ML VIAL ONE (09:45)
[2019-06-25] MEDS ORDERED: Ketorolac INJ* 30 MG/ML 1 ML VIAL ONE (09:50)
[2019-06-25] MEDS ORDERED: Ondansetron INJ* 2 MG/ML VIAL ONE (09:50)
[2019-06-25] MEDS ORDERED: Dexamethasone IV* 4 MG/ML 1 ML (4 MG) ONE (09:50)
[2019-06-25] MEDS ORDERED: Naloxone* 0.4 MG/ML 1 ML VIAL IV PRN (10:43)
--- NOTE | 2019-06-25 12:03 | OP ---
CC: Dr. Wesley Alfaro * DATE OF OPERATION: 06/25/19 - [facility] DATE OF : 41 SURGEON: Pepe Hsieh MD. ANESTHESIOLOGIST: Dr. Giles. ANESTHESIA: General. PRE-OP DIAGNOSES: 1. Metastatic adenocarcinoma of the prostate. 2. Left ureteral obstruction due to above. 3. Status post placement left ureteral stent. POST-OP DIAGNOSES: 1. Metastatic adenocarcinoma of the prostate. 2. Left ureteral obstruction due to above. 3. Status post placement left ureteral stent. OPERATIVE PROCEDURE: 1. Cystoscopy. 2. Left retrograde pyelography. 3. Left ureteral stent exchange (black silicone, 8.5 Jamaican, 26 cm). INDICATION FOR PROCEDURE: Mr. Lynn is a 74-year-old male who underwent a radical prostatectomy for prostate carcinoma. He had PSA recurrence and was given a course of salvage radiation therapy. He failed the treatments and has become castrate-resistant and is maintained on chemotherapy. Seven months ago, he was noted to have a new onset left hydronephrosis with obstruction of the distal ureter due to his metastatic disease. At that time, left ureteral stent insertion was performed. The insertion of the stent was difficult due to his disease. Considering the stent has been in place for 7 months, the patient is brought in for stent exchange. OPERATIVE FINDINGS: The patient had past insertion of an inflatable penile prosthesis. At cystoscopy, the penile and bulbar urethrae looked normal. The prostatic urethra was surgically absent. Examination of the bladder showed the distal limb of the stent coming from the left ureteral orifice. The bladder mucosa showed changes consistent with radiation cystitis. There were, however, no suspicious bladder lesions seen. The right ureteral orifice looked normal. Upon left retrograde pyelography, there was no hydronephrosis noted indicating the stent was still draining well. DESCRIPTION OF PROCEDURE: After successful general anesthesia, the patient was placed in the lithotomy position and was prepped and draped for a cystoscopy. Cystoscopy was performed. The bladder was inspected and the above findings were noted. A flexible-tip guidewire was then passed inside the left ureteral orifice alongside the ureteral stent and the guidewire was positioned in the area of the renal pelvis. The cystoscope was then removed keeping the guidewire in place. The cystoscope was reintroduced inside the bladder alongside the guidewire. The ureteral stent was then removed keeping the guidewire in place. The cystoscope was then reintroduced over the guidewire and positioned inside the bladder. A size 5-Jamaican open-ended catheter was fed on top of the guidewire and retrograde pyelography was performed demonstrating the left collecting system. The guidewire was then reintroduced. A black silicone stent, 8.5 Jama[place], 26 cm long was then placed with the proximal end coiling in the renal pelvis and the distal end coiling inside the bladder. There was good drainage of contrast from the kidney. The cystoscope was then removed and the size 18-Jamaican Pinto catheter was passed inside the bladder and the balloon inflated with 10 cc of water. The patient tolerated the procedure well and left the operating room in good condition. [id number]/[facility]PS #: [id number] [facility]
[2019-06-25 12:06] VITALS: BP 114/64
== END 2019-06-25 12:00 | disposition home or self-care (01) ==
LOC: OR 06:56
PROVIDERS: ATTEND Urology
DX: N13.1 Hydronephrosis with ureteral stricture, not elsewhere classified (principal); C61 Malignant neoplasm of prostate; C79.51 Secondary malignant neoplasm of bone; N26.1 Atrophy of kidney (terminal); E78.5 Hyperlipidemia, unspecified
CPT/HCPCS: 74420; C1876; J0330; J1100; J1885; J2250; J2405; J2704; J3010

== ENCOUNTER 2020-03-29 09:55 | Inpatient (IN) ==
[2020-03-29 11:45] LABS: Hematocrit 44 % (42-52); Hemoglobin 14.6 g/dL (14.0-18.0); Mean Corpuscular HGB Conc 33 g/dL (31-36); Mean Corpuscular Hemoglobin 30 pg (27-31); Mean Corpuscular Volume 91 fL (80-94); Mean Platelet Volume 9.3 fL (7.4-10.4); Platelet Count 213 10^3/uL (150-450); Red Blood Count 4.81 10^6 /uL (4.18-5.48); Red Cell Distribution Width 17 % (10-15); White Blood Count 37.8 10^3/uL (3.5-10.8)
[2020-03-29 11:54] LABS: Activated Partial Thrombo Time 29.4 seconds (26.0-38.0); INR 1.04 (0.82-1.09)
[2020-03-29] MEDS ORDERED: NS 0.9% 1000 ml BAG 1,000 ML IV ONE (11:58)
[2020-03-29] MEDS ORDERED: Ondansetron 4 mg VIAL 2 MG/ML 2 ml VIAL IV ONE ×2 (11:58→15:09)
[2020-03-29] MEDS ORDERED: fentaNYL 100 mcg/2 ml 50 MCG/ML VIAL IV SLOW PU ONE ×2 (11:59→14:34)
[2020-03-29 12:03] LABS: Albumin 4.3 g/dL (3.2-5.2); Albumin/Globulin Ratio 1.3 (1-3); BUN/Creatinine Ratio 21.1 (8-20); C Reactive Protein 77.46 mg/L (<8.01); Calcium 10.9 mg/dL (8.6-10.3); EGFR African American 41.9 (>60); EGFR Non-African American 34.6 (>60); Globulin 3.3 g/dL (2-4); Potassium 4.5 mmol/L (3.5-5.0); Total Bilirubin 1.2 mg/dL (0.2-1.0); Total Protein 7.6 g/dL (6.4-8.9)
[2020-03-29] MEDS ORDERED: LORazepam 2 mg VIAL 1 ml IV PUSH ONE (12:03)
[2020-03-29] MEDS ORDERED: Lorazepam PYXIS KEY PRN (12:03)
[2020-03-29] MEDS ORDERED: Lorazepam PYXIS KEY ONE (12:18)
[2020-03-29 12:47] LABS: Urine Appearance Cloudy; Urine Bilirubin Negative (Negative); Urine Blood 1+ (Negative); Urine Color Yellow; Urine Glucose Negative (Negative); Urine Ketones Negative (Negative); Urine Nitrite Negative (Negative); Urine Protein 2+(100 mg/dL) (Negative); Urine Specific Gravity 1.017 (1.010-1.030); Urine Urobilinogen Negative (Negative)
[2020-03-29 12:56] LABS: ABS Basophils 0.3 10^3/ul (0-0.2); ABS Eosinophils 0.2 10^3/ul (0-0.6); ABS Lymphocytes 1.5 10^3/ul (1.0-4.8); ABS Monocytes 1.1 10^3/ul (0-0.8); ABS Neutrophils 34.7 10^3/ul (1.5-7.7); Eosinophil % 0.6 %; Lymphocyte % 3.9 %; Nucleated Red Blood Cells % 0.1
[2020-03-29 13:12] LABS: Urine Bacteria Absent (Absent); Urine Red Blood Cell 3+(>10/hpf) (Absent); Urine Squamous Epithelial Cell Present (Absent); Urine White Blood Cell 3+(>20/hpf) (Absent)
[2020-03-29] MEDS ORDERED: Lidocaine 2% PF 5 ML VIAL ONE (16:22)
[2020-03-29] MEDS ORDERED: Dexamethasone IV 4 MG/ML VIAL 1 ml VIAL ONE (16:22)
[2020-03-29] MEDS ORDERED: Propofol 10 MG/ML 20 ML BTL ONE (16:22)
[2020-03-29] MEDS ORDERED: Ondansetron 4 mg VIAL 2 MG/ML 2 ml VIAL ONE (16:22)
[2020-03-29] MEDS ORDERED: Phenylephrine IV 10 MG/ML 1 ml VIAL ONE (16:22)
[2020-03-29] MEDS ORDERED: fentaNYL 100 mcg/2 ml 50 MCG/ML VIAL ONE (16:23)
[2020-03-29] MEDS ORDERED: Rocuronium 50 mg VIAL 10 mg/ml 5 ml VIAL (50 mg) ONE (16:23)
[2020-03-29] MEDS ORDERED: Ketamine HCL 50 mg/ml 10 ml VIAL (500 MG) ONE (16:23)
[2020-03-29] MEDS ORDERED: Midazolam 5 mg/5 ml VIAL 1 mg/ml 5 ml VIAL (5 mg) ONE (16:23)
[2020-03-29] MEDS ORDERED: ceFAZolin 2 GM PREMIX 2 GM/50 ML BAG ONE (17:00)
[2020-03-29] MEDS ORDERED: Clindamycin 900 MG/D5W BAG 900 MG/50 ML BAG IVPB ONE (17:08)
[2020-03-29] MEDS ORDERED: Bupivacaine 0.5% SDV PF 30ML VIAL ONE (17:21)
[2020-03-29] MEDS ORDERED: Bupivacaine 0.5% 50 ML MDV VIAL ONE (17:23)
[2020-03-29] MEDS ORDERED: fentaNYL 100 mcg/2 ml 50 MCG/ML VIAL IV PRN (18:24)
[2020-03-29] MEDS ORDERED: Naloxone 0.4 mg VIAL 0.4 mg/ml 1 ml VIAL IV PRN (18:24)
[2020-03-29] MEDS ORDERED: Ondansetron 4 mg VIAL 2 MG/ML 2 ml VIAL IV PRN (18:24)
[2020-03-29] MEDS ORDERED: Sugammadex 500 MG/5 ML 5 ml VIAL IV PUSH ONE (18:40)
[2020-03-29] MEDS ORDERED: HYDROcodone/ACETAMIN 5/325 mg TAB PO PRN (19:13)
[2020-03-29] MEDS: NS 0.9% 1000 ml BAG 1,000 ML IV SCH (20:10)
[2020-03-29 21:12] LABS: Hematocrit 40 % (42-52); Hemoglobin 13.1 g/dL (14.0-18.0); Mean Corpuscular HGB Conc 33 g/dL (31-36); Mean Corpuscular Hemoglobin 30 pg (27-31); Mean Corpuscular Volume 92 fL (80-94); Mean Platelet Volume 9.7 fL (7.4-10.4); Platelet Count 161 10^3/uL (150-450); Red Blood Count 4.34 10^6 /uL (4.18-5.48); Red Cell Distribution Width 17 % (10-15); White Blood Count 23.6 10^3/uL (3.5-10.8)
[2020-03-29 21:23] LABS: Calcium 9.9 mg/dL (8.6-10.3)
[2020-03-29 21:28] LABS: BUN/Creatinine Ratio 23.2 (8-20); C Reactive Protein 64.04 mg/L (<8.01); EGFR African American 48.3 (>60); EGFR Non-African American 39.9 (>60)
[2020-03-30 00:01] LABS: ABS Basophils 0.2 10^3/ul (0-0.2); ABS Lymphocytes 0.6 10^3/ul (1.0-4.8); ABS Monocytes 0.5 10^3/ul (0-0.8); ABS Neutrophils 22.3 10^3/ul (1.5-7.7); Eosinophil % 0.1 %; Lymphocyte % 2.6 %
[2020-03-30] MEDS ORDERED: Ondansetron 4 mg VIAL 2 MG/ML 2 ml VIAL ONE (07:52)
[2020-03-30] MEDS ORDERED: Metoprolol Tartrate 5 mg VIAL 5 ml VIAL (1 mg/ml) IV PRN (08:52)
[2020-03-30 09:54] LABS: Hematocrit 38 % (42-52); Hemoglobin 12.6 g/dL (14.0-18.0); Mean Corpuscular HGB Conc 33 g/dL (31-36); Mean Corpuscular Hemoglobin 30 pg (27-31); Mean Corpuscular Volume 91 fL (80-94); Mean Platelet Volume 9.3 fL (7.4-10.4); Platelet Count 184 10^3/uL (150-450); Red Cell Distribution Width 17 % (10-15); White Blood Count 27.5 10^3/uL (3.5-10.8)
[2020-03-30 10:11] LABS: BUN/Creatinine Ratio 25.1 (8-20); Calcium 9.8 mg/dL (8.6-10.3); EGFR African American 44.9 (>60); EGFR Non-African American 37.1 (>60); Potassium 4.6 mmol/L (3.5-5.0)
[2020-03-30 10:24] LABS: Activated Partial Thrombo Time 27.1 seconds (26.0-38.0); INR 1.03 (0.82-1.09)
[2020-03-30] MEDS: Metoprolol Tartrate 5 mg VIAL 5 ml VIAL (1 mg/ml) IV SCH ×3 (10:31→21:15)
[2020-03-30 12:00] LABS: ABS Basophils 0.3 10^3/ul (0-0.2); ABS Lymphocytes 0.6 10^3/ul (1.0-4.8); ABS Monocytes 0.7 10^3/ul (0-0.8); ABS Neutrophils 25.9 10^3/ul (1.5-7.7)
[2020-03-30] MEDS: Heparin 5000 UNITS/ML 1 mL VIAL SUBCUT SCH ×2 (12:46→21:05)
[2020-03-30] MEDS: NS 0.9% 1000 ml BAG 1,000 ML IV SCH ×2 (14:56→22:37)
[2020-03-30] MEDS ORDERED: NS 0.9% 1000 ml BAG 1,000 ML IV ONE (16:15)
[2020-03-30] MEDS: HYDROmorphone 1 MG/1 ML SYRINGE IV SLOW PU PRN ×2 (17:56→21:04)
[2020-03-30 19:15] LABS: Hematocrit 34 % (42-52); Hemoglobin 11.1 g/dL (14.0-18.0); Mean Corpuscular HGB Conc 33 g/dL (31-36); Mean Corpuscular Hemoglobin 30 pg (27-31); Mean Corpuscular Volume 91 fL (80-94); Platelet Count 164 10^3/uL (150-450); Red Blood Count 3.72 10^6 /uL (4.18-5.48); Red Cell Distribution Width 17 % (10-15); White Blood Count 22.3 10^3/uL (3.5-10.8)
[2020-03-30 19:58] LABS: ABS Basophils 0.2 10^3/ul (0-0.2); ABS Lymphocytes 1.2 10^3/ul (1.0-4.8); ABS Monocytes 0.6 10^3/ul (0-0.8); ABS Neutrophils 20.4 10^3/ul (1.5-7.7); Lymphocyte % 5.3 %
[2020-03-30] MEDS: Ondansetron 4 mg VIAL 2 MG/ML 2 ml VIAL IV PRN (21:15)
[2020-03-31] MEDS: HYDROmorphone 1 MG/1 ML SYRINGE IV SLOW PU PRN ×5 (00:29→22:38)
[2020-03-31] MEDS: Ondansetron 4 mg VIAL 2 MG/ML 2 ml VIAL IV PRN (04:03)
[2020-03-31] MEDS: Metoprolol Tartrate 5 mg VIAL 5 ml VIAL (1 mg/ml) IV SCH ×4 (04:04→22:38)
[2020-03-31] MEDS: NS 0.9% 1000 ml BAG 1,000 ML IV SCH ×3 (04:10→21:51)
[2020-03-31 05:49] LABS: Hematocrit 34 % (42-52); Mean Corpuscular HGB Conc 32 g/dL (31-36); Mean Corpuscular Hemoglobin 30 pg (27-31); Mean Corpuscular Volume 93 fL (80-94); Mean Platelet Volume 9.8 fL (7.4-10.4); Platelet Count 159 10^3/uL (150-450); Red Blood Count 3.64 10^6 /uL (4.18-5.48); Red Cell Distribution Width 17 % (10-15); White Blood Count 16.1 10^3/uL (3.5-10.8)
[2020-03-31 06:04] LABS: BUN/Creatinine Ratio 26.6 (8-20); Calcium 8.3 mg/dL (8.6-10.3); EGFR African American 53.4 (>60); EGFR Non-African American 44.1 (>60); Potassium 3.9 mmol/L (3.5-5.0)
[2020-03-31 06:43] LABS: ABS Basophils 0.2 10^3/ul (0-0.2); ABS Lymphocytes 1.3 10^3/ul (1.0-4.8); ABS Monocytes 0.4 10^3/ul (0-0.8); ABS Neutrophils 14.1 10^3/ul (1.5-7.7); Eosinophil % 0.2 %; Lymphocyte % 7.9 %
[2020-03-31] MEDS ORDERED: Lorazepam PYXIS KEY ONE (08:33)
[2020-03-31] MEDS: Heparin 5000 UNITS/ML 1 mL VIAL SUBCUT SCH ×2 (09:46→22:46)
[2020-04-01] MEDS: HYDROmorphone 1 MG/1 ML SYRINGE IV SLOW PU PRN ×4 (02:06→20:24)
[2020-04-01] MEDS: NS 0.9% 1000 ml BAG 1,000 ML IV SCH ×4 (04:09→22:20)
[2020-04-01] MEDS: Metoprolol Tartrate 5 mg VIAL 5 ml VIAL (1 mg/ml) IV SCH ×4 (04:40→22:22)
[2020-04-01] MEDS: Heparin 5000 UNITS/ML 1 mL VIAL SUBCUT SCH ×2 (09:55→22:21)
[2020-04-01] MEDS: Ondansetron 4 mg VIAL 2 MG/ML 2 ml VIAL IV PRN (23:36)
[2020-04-02] MEDS: HYDROmorphone 1 MG/1 ML SYRINGE IV SLOW PU PRN ×6 (00:38→22:50)
[2020-04-02] MEDS: Ondansetron 4 mg VIAL 2 MG/ML 2 ml VIAL IV PRN (03:49)
[2020-04-02] MEDS: Metoprolol Tartrate 5 mg VIAL 5 ml VIAL (1 mg/ml) IV SCH (03:52)
[2020-04-02] MEDS: NS 0.9% 1000 ml BAG 1,000 ML IV SCH ×4 (03:58→22:50)
[2020-04-02 05:33] LABS: ABS Basophils 0.1 10^3/ul (0-0.2); ABS Eosinophils 0.1 10^3/ul (0-0.6); ABS Lymphocytes 0.8 10^3/ul (1.0-4.8); ABS Monocytes 0.6 10^3/ul (0-0.8); Eosinophil % 0.7 %; Hematocrit 33 % (42-52); Hemoglobin 10.8 g/dL (14.0-18.0); Lymphocyte % 10.8 %; Mean Corpuscular HGB Conc 33 g/dL (31-36); Mean Corpuscular Hemoglobin 30 pg (27-31); Mean Corpuscular Volume 93 fL (80-94); Mean Platelet Volume 9.3 fL (7.4-10.4); Nucleated Red Blood Cells % 0.1; Platelet Count 201 10^3/uL (150-450); Red Blood Count 3.56 10^6 /uL (4.18-5.48); Red Cell Distribution Width 17 % (10-15); White Blood Count 7.6 10^3/uL (3.5-10.8)
[2020-04-02] MEDS: Heparin 5000 UNITS/ML 1 mL VIAL SUBCUT SCH ×2 (10:25→21:26)
[2020-04-03] MEDS: NS 0.9% 1000 ml BAG 1,000 ML IV SCH (04:58)
[2020-04-03] MEDS: HYDROmorphone 1 MG/1 ML SYRINGE IV SLOW PU PRN ×2 (07:52→18:04)
[2020-04-03] MEDS: Metoprolol Tartrate 5 mg VIAL 5 ml VIAL (1 mg/ml) IV SCH ×3 (08:20→20:15)
[2020-04-03 09:23] LABS: Calcium 7.7 mg/dL (8.6-10.3); EGFR African American 87.9 (>60); EGFR Non-African American 72.6 (>60); Magnesium 1.9 mg/dL (1.9-2.7); Phosphorus 1.5 mg/dL (2.5-5.0); Potassium 2.9 mmol/L (3.5-5.0)
[2020-04-03] MEDS: Heparin 5000 UNITS/ML 1 mL VIAL SUBCUT SCH ×2 (09:57→22:01)
[2020-04-03] MEDS ORDERED: CALCIUM GLUCONATE 1GM/50ML NS 1 GM/50 ML BAG IV ONE (10:30)
[2020-04-03] MEDS: D5W 1/2 NS KCl 20 meq 1000 ml 1,000 ML IV SCH ×2 (10:53→20:12)
[2020-04-03] MEDS ORDERED: Potassium Phosphate IV 15 MMOLE in NS 0.9% 250 ml 250 ML IVPB ONE (11:30)
[2020-04-03] MEDS ORDERED: Iohexol 300 (CONTRAST) 10 ML SDV IV ONE (15:24)
[2020-04-04] MEDS: HYDROmorphone 1 MG/1 ML SYRINGE IV SLOW PU PRN ×4 (02:03→16:10)
[2020-04-04] MEDS: Metoprolol Tartrate 5 mg VIAL 5 ml VIAL (1 mg/ml) IV SCH ×4 (02:04→20:40)
[2020-04-04] MEDS: D5W 1/2 NS KCl 20 meq 1000 ml 1,000 ML IV SCH ×3 (04:31→21:30)
[2020-04-04] MEDS: Heparin 5000 UNITS/ML 1 mL VIAL SUBCUT SCH ×2 (10:09→20:39)
[2020-04-04 13:17] LABS: BUN/Creatinine Ratio 6.9 (8-20); Calcium 8.3 mg/dL (8.6-10.3); EGFR African American 86.9 (>60); EGFR Non-African American 71.8 (>60); Potassium 3.3 mmol/L (3.5-5.0)
[2020-04-04] MEDS ORDERED: CALCIUM GLUCONATE 1GM/50ML NS 1 GM/50 ML BAG IV ONE (14:00)
[2020-04-05] MEDS: Metoprolol Tartrate 5 mg VIAL 5 ml VIAL (1 mg/ml) IV SCH ×4 (02:03→20:07)
[2020-04-05] MEDS: HYDROmorphone 1 MG/1 ML SYRINGE IV SLOW PU PRN ×4 (02:19→18:24)
[2020-04-05] MEDS: D5W 1/2 NS KCl 20 meq 1000 ml 1,000 ML IV SCH (07:22)
[2020-04-05 10:11] LABS: Hematocrit 34 % (42-52); Hemoglobin 11.2 g/dL (14.0-18.0); Mean Corpuscular HGB Conc 33 g/dL (31-36); Mean Corpuscular Hemoglobin 31 pg (27-31); Mean Corpuscular Volume 92 fL (80-94); Mean Platelet Volume 8.5 fL (7.4-10.4); Platelet Count 263 10^3/uL (150-450); Red Blood Count 3.66 10^6 /uL (4.18-5.48); Red Cell Distribution Width 17 % (10-15); White Blood Count 7.3 10^3/uL (3.5-10.8)
[2020-04-05 10:30] LABS: ABS Basophils 0.1 10^3/ul (0-0.2); ABS Lymphocytes 1.7 10^3/ul (1.0-4.8); ABS Monocytes 0.9 10^3/ul (0-0.8); ABS Neutrophils 4.6 10^3/ul (1.5-7.7); Eosinophil % 0.4 %; Lymphocyte % 23.4 %; Nucleated Red Blood Cells % 0.1
[2020-04-05 10:57] LABS: BUN/Creatinine Ratio 5.7 (8-20); Calcium 7.9 mg/dL (8.6-10.3); EGFR African American 82.2 (>60); EGFR Non-African American 67.9 (>60); Magnesium 1.8 mg/dL (1.9-2.7)
[2020-04-05] MEDS: Heparin 5000 UNITS/ML 1 mL VIAL SUBCUT SCH ×2 (11:14→21:12)
[2020-04-05] MEDS: D5W 1000 ml BAG 1,000 ML IV SCH ×2 (13:29→21:14)
[2020-04-05] MEDS ORDERED: Magnesium Sulfate 2 gm BAG 2 GM/50 ML BAG IVPB ONE (13:30)
[2020-04-05 17:12] LABS: BUN/Creatinine Ratio 5.9 (8-20); Calcium 8.3 mg/dL (8.6-10.3); EGFR African American 85.9 (>60); Potassium 3.5 mmol/L (3.5-5.0)
[2020-04-05] MEDS ORDERED: KCL 10 MEQ/50 ML IVPREMIX 10 MEQ/50 ML BAG ONE (18:15)
[2020-04-05] MEDS: KCL 10 MEQ/50 ML IVPREMIX 10 MEQ/50 ML BAG IV SCH ×3 (18:20→23:29)
[2020-04-06] MEDS: Metoprolol Tartrate 5 mg VIAL 5 ml VIAL (1 mg/ml) IV SCH ×4 (02:02→20:14)
[2020-04-06] MEDS: HYDROmorphone 1 MG/1 ML SYRINGE IV SLOW PU PRN ×3 (02:15→18:04)
[2020-04-06 05:30] LABS: BUN/Creatinine Ratio 6.2 (8-20); Calcium 7.7 mg/dL (8.6-10.3); EGFR African American 91.1 (>60); EGFR Non-African American 75.2 (>60); Potassium 3.4 mmol/L (3.5-5.0)
[2020-04-06] MEDS: D5W 1000 ml BAG 1,000 ML IV SCH (09:21)
[2020-04-06] MEDS: Heparin 5000 UNITS/ML 1 mL VIAL SUBCUT SCH ×2 (09:22→20:16)
[2020-04-06] MEDS ORDERED: KCL 20 MEQ/100 ML IVPREMIX 20 MEQ/100 ML BAG IV ONE (09:28)
[2020-04-06] MEDS ORDERED: NS 0.9% 1000 ml BAG 1,000 ML IV SCH (09:30)
[2020-04-06] MEDS ORDERED: KCL 20 MEQ/100 ML IVPREMIX 20 MEQ/100 ML BAG ONE (09:33)
[2020-04-06 16:21] LABS: Magnesium 2.1 mg/dL (1.9-2.7)
[2020-04-06] MEDS: Lactated Ringers 1000 ml BAG 1,000 ML IV SCH (17:21)
[2020-04-06 20:59] LABS: BUN/Creatinine Ratio 6.9 (8-20); Calcium 7.8 mg/dL (8.6-10.3); EGFR African American 86.9 (>60); EGFR Non-African American 71.8 (>60); Magnesium 1.9 mg/dL (1.9-2.7); Potassium 3.7 mmol/L (3.5-5.0)
[2020-04-07] MEDS: Lactated Ringers 1000 ml BAG 1,000 ML IV SCH ×2 (01:47→10:20)
[2020-04-07] MEDS: HYDROmorphone 1 MG/1 ML SYRINGE IV SLOW PU PRN ×4 (01:55→22:44)
[2020-04-07] MEDS: Metoprolol Tartrate 5 mg VIAL 5 ml VIAL (1 mg/ml) IV SCH ×4 (01:58→20:15)
[2020-04-07] MEDS ORDERED: Polyethylene Glycol 3350 17 GM PACKET PO ONE (08:14)
[2020-04-07] MEDS ORDERED: Polyethylene Glycol 3350 17 GM PACKET ONE (08:27)
[2020-04-07] MEDS: Heparin 5000 UNITS/ML 1 mL VIAL SUBCUT SCH ×2 (10:30→21:42)
[2020-04-07 10:57] LABS: Hematocrit 35 % (42-52); Hemoglobin 11.4 g/dL (14.0-18.0); Mean Corpuscular HGB Conc 33 g/dL (31-36); Mean Corpuscular Hemoglobin 30 pg (27-31); Mean Corpuscular Volume 92 fL (80-94); Mean Platelet Volume 8.4 fL (7.4-10.4); Platelet Count 254 10^3/uL (150-450); Red Blood Count 3.81 10^6 /uL (4.18-5.48); Red Cell Distribution Width 17 % (10-15); White Blood Count 11.8 10^3/uL (3.5-10.8)
[2020-04-07 11:25] LABS: Calcium 7.9 mg/dL (8.6-10.3); EGFR African American 87.9 (>60); EGFR Non-African American 72.6 (>60); Potassium 4.1 mmol/L (3.5-5.0)
[2020-04-07 12:38] LABS: ABS Basophils 0.1 10^3/ul (0-0.2); ABS Monocytes 1.4 10^3/ul (0-0.8); ABS Neutrophils 8.4 10^3/ul (1.5-7.7); Eosinophil % 0.1 %; Lymphocyte % 16.6 %; Nucleated Red Blood Cells % 0.1
[2020-04-07] MEDS ORDERED: D5W 1000 ml BAG 1,000 ML IV SCH (14:00)
[2020-04-07] MEDS ORDERED: Lactated Ringers 1000 ml BAG 1,000 ML IV SCH (14:00)
[2020-04-07] MEDS: D5W 1000 ml BAG 1,000 ML IV SCH (17:34)
[2020-04-07] MEDS: Ondansetron 4 mg VIAL 2 MG/ML 2 ml VIAL IV PRN (18:08)
[2020-04-08] MEDS: Metoprolol Tartrate 5 mg VIAL 5 ml VIAL (1 mg/ml) IV SCH ×4 (01:55→19:58)
[2020-04-08] MEDS: D5W 1000 ml BAG 1,000 ML IV SCH ×2 (02:11→10:49)
[2020-04-08] MEDS: HYDROmorphone 1 MG/1 ML SYRINGE IV SLOW PU PRN ×2 (05:15→15:35)
[2020-04-08 05:43] LABS: Hematocrit 32 % (42-52); Hemoglobin 10.6 g/dL (14.0-18.0); Mean Corpuscular HGB Conc 33 g/dL (31-36); Mean Corpuscular Hemoglobin 30 pg (27-31); Mean Corpuscular Volume 91 fL (80-94); Mean Platelet Volume 8.8 fL (7.4-10.4); Platelet Count 240 10^3/uL (150-450); Red Blood Count 3.55 10^6 /uL (4.18-5.48); Red Cell Distribution Width 17 % (10-15)
[2020-04-08 06:01] LABS: BUN/Creatinine Ratio 8.8 (8-20); Potassium 3.4 mmol/L (3.5-5.0)
[2020-04-08 06:02] LABS: Calcium 7.8 mg/dL (8.6-10.3); EGFR African American 76.3 (>60); EGFR Non-African American 63.1 (>60); Magnesium 1.8 mg/dL (1.9-2.7); Phosphorus 2.2 mg/dL (2.5-5.0)
[2020-04-08] MEDS ORDERED: KCL 20 MEQ/100 ML IVPREMIX 20 MEQ/100 ML BAG IV ONE (08:21)
[2020-04-08] MEDS ORDERED: Potassium Phosphate IV 10 MMOLE in NS 0.9% 250 ml 250 ML IVPB ONE (08:57)
[2020-04-08] MEDS ORDERED: Magnesium Sulfate 2 gm BAG 2 GM/50 ML BAG IVPB ONE (09:00)
[2020-04-08 09:31] LABS: ABS Lymphocytes 1.7 10^3/ul (1.0-4.8); ABS Monocytes 1.5 10^3/ul (0-0.8); ABS Neutrophils 8.7 10^3/ul (1.5-7.7); Eosinophil % 0.1 %; Lymphocyte % 14.1 %; Nucleated Red Blood Cells % 0.2
[2020-04-08] MEDS: Heparin 5000 UNITS/ML 1 mL VIAL SUBCUT SCH ×2 (10:00→22:08)
[2020-04-08] MEDS: Ondansetron 4 mg VIAL 2 MG/ML 2 ml VIAL IV PRN (19:58)
[2020-04-09] MEDS: Metoprolol Tartrate 5 mg VIAL 5 ml VIAL (1 mg/ml) IV SCH ×4 (02:29→19:43)
[2020-04-09] MEDS: D5W 1000 ml BAG 1,000 ML IV SCH ×2 (04:00→17:25)
[2020-04-09 05:22] LABS: CO2 Carbon Dioxide 18 mmol/L (22-32); Calcium 7.8 mg/dL (8.6-10.3); Chloride 111 mmol/L (101-111); Sodium 138 mmol/L (135-145)
[2020-04-09 05:28] LABS: BUN/Creatinine Ratio 7.3 (8-20); Blood Urea Nitrogen 9 mg/dL (6-24); EGFR African American 68.6 (>60); EGFR Non-African American 56.7 (>60); Glucose 111 mg/dL (70-100)
[2020-04-09 05:41] LABS: ABS Basophils 0.1 10^3/ul (0-0.2); ABS Eosinophils 0.2 10^3/ul (0-0.6); ABS Lymphocytes 2.1 10^3/ul (1.0-4.8); ABS Monocytes 1.8 10^3/ul (0-0.8); ABS Neutrophils 11.8 10^3/ul (1.5-7.7); Eosinophil % 1.2 %; Hematocrit 34 % (42-52); Hemoglobin 11.4 g/dL (14.0-18.0); Lymphocyte % 13.3 %; Mean Corpuscular HGB Conc 34 g/dL (31-36); Mean Corpuscular Hemoglobin 31 pg (27-31); Mean Corpuscular Volume 92 fL (80-94); Mean Platelet Volume 9.8 fL (7.4-10.4); Nucleated Red Blood Cells % 0.1; Platelet Count 186 10^3/uL (150-450); Red Blood Count 3.69 10^6 /uL (4.18-5.48); Red Cell Distribution Width 17 % (10-15)
[2020-04-09 06:23] LABS: Anion Gap 9 mmol/L (2-11)
[2020-04-09] MEDS: Ondansetron 4 mg VIAL 2 MG/ML 2 ml VIAL IV PRN (07:44)
[2020-04-09] MEDS: KCL 20 MEQ/100 ML IVPREMIX 20 MEQ/100 ML BAG IV SCH ×2 (09:31→13:59)
[2020-04-09] MEDS: Heparin 5000 UNITS/ML 1 mL VIAL SUBCUT SCH ×2 (09:31→21:41)
[2020-04-09] MEDS: HYDROmorphone 1 MG/1 ML SYRINGE IV SLOW PU PRN (11:31)
[2020-04-09] MEDS: HYDROmorphone 0.5 MG/0.5 ML SYRINGE IV SLOW PU PRN ×2 (14:44→19:43)
[2020-04-10] MEDS: Metoprolol Tartrate 5 mg VIAL 5 ml VIAL (1 mg/ml) IV SCH ×2 (02:05→09:25)
[2020-04-10] MEDS: D5W 1000 ml BAG 1,000 ML IV SCH ×2 (02:17→11:54)
[2020-04-10 05:31] LABS: Hematocrit 34 % (42-52); Hemoglobin 11.1 g/dL (14.0-18.0); Mean Corpuscular HGB Conc 33 g/dL (31-36); Mean Corpuscular Hemoglobin 30 pg (27-31); Mean Corpuscular Volume 91 fL (80-94); Mean Platelet Volume 8.5 fL (7.4-10.4); Platelet Count 222 10^3/uL (150-450); Red Blood Count 3.76 10^6 /uL (4.18-5.48); Red Cell Distribution Width 17 % (10-15); White Blood Count 14.3 10^3/uL (3.5-10.8)
[2020-04-10 05:47] LABS: BUN/Creatinine Ratio 5.6 (8-20); Calcium 7.9 mg/dL (8.6-10.3); EGFR African American 67.3 (>60); EGFR Non-African American 55.6 (>60); Potassium 3.2 mmol/L (3.5-5.0)
[2020-04-10 06:38] LABS: ABS Lymphocytes 1.3 10^3/ul (1.0-4.8); ABS Monocytes 1.1 10^3/ul (0-0.8); ABS Neutrophils 11.8 10^3/ul (1.5-7.7); Eosinophil % 0.2 %
[2020-04-10] MEDS: KCL 20 MEQ/100 ML IVPREMIX 20 MEQ/100 ML BAG IV SCH ×3 (09:31→17:02)
[2020-04-10] MEDS: Heparin 5000 UNITS/ML 1 mL VIAL SUBCUT SCH ×2 (09:31→22:57)
[2020-04-10] MEDS: Ondansetron 4 mg VIAL 2 MG/ML 2 ml VIAL IV PRN ×2 (10:27→18:43)
[2020-04-10] MEDS ORDERED: D5W 1000 ml BAG 1,000 ML IV SCH (12:52)
[2020-04-10] MEDS: Potassium Chlor 20 meq TAB.ER PO SCH (22:57)
[2020-04-10] MEDS: Potassium Citrate 10 meq T(NF) PO SCH (22:58)
[2020-04-10] MEDS: oxyCODONE/Acetamin 5/325 mg TAB PO PRN (23:04)
[2020-04-11 04:39] LABS: ABS Lymphocytes 1.6 10^3/ul (1.0-4.8); ABS Monocytes 1.3 10^3/ul (0-0.8); ABS Neutrophils 10.3 10^3/ul (1.5-7.7); Eosinophil % 0.2 %; Hematocrit 32 % (42-52); Hemoglobin 10.5 g/dL (14.0-18.0); Lymphocyte % 12.1 %; Mean Corpuscular HGB Conc 33 g/dL (31-36); Mean Corpuscular Hemoglobin 29 pg (27-31); Mean Corpuscular Volume 90 fL (80-94); Mean Platelet Volume 8.6 fL (7.4-10.4); Platelet Count 228 10^3/uL (150-450); Red Cell Distribution Width 17 % (10-15); White Blood Count 13.3 10^3/uL (3.5-10.8)
[2020-04-11 04:56] LABS: BUN/Creatinine Ratio 4.5 (8-20); Calcium 7.9 mg/dL (8.6-10.3); EGFR African American 63.8 (>60); EGFR Non-African American 52.7 (>60); Potassium 3.5 mmol/L (3.5-5.0)
[2020-04-11] MEDS: Potassium Chlor 20 meq TAB.ER PO SCH ×2 (08:37→20:54)
[2020-04-11] MEDS: Ondansetron 4 mg VIAL 2 MG/ML 2 ml VIAL IV PRN (08:37)
[2020-04-11] MEDS: oxyCODONE/Acetamin 5/325 mg TAB PO PRN (08:38)
[2020-04-11] MEDS: Potassium Citrate 10 meq T(NF) PO SCH ×2 (08:42→20:54)
[2020-04-11] MEDS: Heparin 5000 UNITS/ML 1 mL VIAL SUBCUT SCH ×2 (10:27→20:54)
[2020-04-11] MEDS ORDERED: fentaNYL 100 mcg/2 ml 50 MCG/ML VIAL ONE ×3 (11:52→14:31)
[2020-04-11] MEDS ORDERED: Rocuronium 50 mg VIAL 10 mg/ml 5 ml VIAL (50 mg) ONE (11:52)
[2020-04-11] MEDS ORDERED: Etomidate 20 mg/10 ml 2 MG/ML 10 ml VIAL ONE (11:52)
[2020-04-11] MEDS ORDERED: Propofol 10 MG/ML 20 ML BTL ONE (11:52)
[2020-04-11] MEDS ORDERED: Lidocaine 2% PF 5 ML VIAL ONE (11:52)
[2020-04-11] MEDS ORDERED: Bupivacaine 0.25% SDV 30 ML ONE (12:09)
[2020-04-11] MEDS ORDERED: Clindamycin 900 MG/D5W BAG 900 MG/50 ML BAG IVPB ONE (12:32)
[2020-04-11] MEDS ORDERED: Phenylephrine 40 mcg/mL 10mL (400mcg) SYRINGE ONE (13:02)
[2020-04-11] MEDS ORDERED: EPHEDrine (Pressors) 50 MG/ML VIAL ONE (13:08)
[2020-04-11] MEDS ORDERED: Ondansetron 4 mg VIAL 2 MG/ML 2 ml VIAL ONE (13:20)
[2020-04-11] MEDS ORDERED: Dexamethasone IV 4 MG/ML VIAL 1 ml VIAL ONE (13:20)
[2020-04-11] MEDS ORDERED: Naloxone 0.4 mg VIAL 0.4 mg/ml 1 ml VIAL IV PRN ×2 (13:56→15:17)
[2020-04-11] MEDS ORDERED: DiMENhydriNATE IV 50 mg/ml 1 ml VIAL IV PUSH PRN (13:56)
[2020-04-11] MEDS: fentaNYL 100 mcg/2 ml 50 MCG/ML VIAL IV PRN ×5 (14:00→14:35)
[2020-04-11] MEDS ORDERED: fentaNYL 100 mcg/2 ml 50 MCG/ML VIAL IV PRN (15:17)
[2020-04-11] MEDS ORDERED: LACTATED RINGERS 1000 ML BAG IV SCH (17:00)
[2020-04-11] MEDS: HYDROmorphone 0.5 MG/0.5 ML SYRINGE IV SLOW PU PRN ×2 (17:20→20:54)
[2020-04-12] MEDS: HYDROmorphone 0.5 MG/0.5 ML SYRINGE IV SLOW PU PRN ×4 (05:29→20:37)
[2020-04-12] MEDS: Potassium Citrate 10 meq T(NF) PO SCH (07:17)
[2020-04-12] MEDS: oxyCODONE/Acetamin 5/325 mg TAB PO PRN (08:55)
[2020-04-12] MEDS: Potassium Chlor 20 meq TAB.ER PO SCH ×2 (08:56→20:38)
[2020-04-12] MEDS: Heparin 5000 UNITS/ML 1 mL VIAL SUBCUT SCH ×2 (08:56→20:39)
[2020-04-13] MEDS: HYDROmorphone 0.5 MG/0.5 ML SYRINGE IV SLOW PU PRN ×7 (01:22→22:51)
[2020-04-13] MEDS: oxyCODONE/Acetamin 5/325 mg TAB PO PRN ×2 (02:11→20:42)
[2020-04-13 05:55] LABS: Hematocrit 35 % (42-52); Hemoglobin 11.5 g/dL (14.0-18.0); Mean Corpuscular HGB Conc 33 g/dL (31-36); Mean Corpuscular Hemoglobin 30 pg (27-31); Mean Corpuscular Volume 90 fL (80-94); Mean Platelet Volume 8.6 fL (7.4-10.4); Platelet Count 257 10^3/uL (150-450); Red Blood Count 3.86 10^6 /uL (4.18-5.48); Red Cell Distribution Width 17 % (10-15); White Blood Count 23.6 10^3/uL (3.5-10.8)
[2020-04-13 06:02] LABS: ABS Lymphocytes 1.4 10^3/ul (1.0-4.8); ABS Monocytes 3.2 10^3/ul (0-0.8); ABS Neutrophils 18.9 10^3/ul (1.5-7.7); Eosinophil % 0.1 %; Lymphocyte % 5.8 %
[2020-04-13 06:16] LABS: BUN/Creatinine Ratio 8.8 (8-20); Calcium 8.4 mg/dL (8.6-10.3); EGFR African American 61.6 (>60); EGFR Non-African American 50.9 (>60); Potassium 4.8 mmol/L (3.5-5.0)
[2020-04-13] MEDS: Potassium Chlor 20 meq TAB.ER PO SCH ×2 (08:11→20:45)
[2020-04-13] MEDS: Heparin 5000 UNITS/ML 1 mL VIAL SUBCUT SCH ×2 (10:49→20:45)
[2020-04-13] MEDS: Ondansetron 4 mg VIAL 2 MG/ML 2 ml VIAL IV PRN (12:51)
[2020-04-14] MEDS: oxyCODONE/Acetamin 5/325 mg TAB PO PRN ×2 (01:50→13:20)
[2020-04-14] MEDS: HYDROmorphone 0.5 MG/0.5 ML SYRINGE IV SLOW PU PRN ×4 (04:25→21:44)
[2020-04-14 06:49] LABS: Hematocrit 35 % (42-52); Hemoglobin 11.2 g/dL (14.0-18.0); Mean Corpuscular HGB Conc 32 g/dL (31-36); Mean Corpuscular Hemoglobin 29 pg (27-31); Mean Corpuscular Volume 92 fL (80-94); Mean Platelet Volume 8.6 fL (7.4-10.4); Platelet Count 318 10^3/uL (150-450); Red Blood Count 3.86 10^6 /uL (4.18-5.48); Red Cell Distribution Width 17 % (10-15); White Blood Count 26.2 10^3/uL (3.5-10.8)
[2020-04-14 07:10] LABS: BUN/Creatinine Ratio 12.6 (8-20); Calcium 8.5 mg/dL (8.6-10.3); EGFR African American 62.2 (>60); EGFR Non-African American 51.4 (>60); Potassium 4.7 mmol/L (3.5-5.0)
[2020-04-14 07:30] LABS: ABS Lymphocytes 1.2 10^3/ul (1.0-4.8); ABS Monocytes 2.9 10^3/ul (0-0.8); ABS Neutrophils 22.1 10^3/ul (1.5-7.7); Lymphocyte % 4.6 %
[2020-04-14] MEDS: Potassium Chlor 20 meq TAB.ER PO SCH (10:11)
[2020-04-14] MEDS: Ondansetron 4 mg VIAL 2 MG/ML 2 ml VIAL IV PRN ×2 (10:12→14:16)
[2020-04-14] MEDS: Heparin 5000 UNITS/ML 1 mL VIAL SUBCUT SCH ×2 (10:18→21:16)
[2020-04-14 12:52] LABS: Urine Appearance Turbid; Urine Bilirubin Negative (Negative); Urine Blood 1+ (Negative); Urine Color Yellow; Urine Glucose Negative (Negative); Urine Ketones Trace (Negative); Urine Nitrite Negative (Negative); Urine Protein 2+(100 mg/dL) (Negative); Urine Specific Gravity 1.015 (1.010-1.030); Urine Urobilinogen Negative (Negative)
[2020-04-14 12:57] LABS: Urine Bacteria 1+ (Absent); Urine Red Blood Cell Trace(0-2/hpf) (Absent); Urine White Blood Cell 3+(>20/hpf) (Absent)
[2020-04-14] MEDS ORDERED: Vancomycin 2,000 MG in NS 0.9% 500 ml BAG 500 ML IVPB ONE (14:30)
[2020-04-14] MEDS ORDERED: Vancomycin per Pharmacy 1 EA NOTE FOLLOW UP SCH (15:00)
[2020-04-14] MEDS ORDERED: Metoprolol Tartrate 5 mg VIAL 5 ml VIAL (1 mg/ml) IV PRN (16:33)
[2020-04-14 17:40] LABS: C Reactive Protein 333.18 mg/L (<8.01)
[2020-04-14] MEDS: D5W 1/2 NS 1000 ml BAG 1,000 ML IV SCH (17:54)
[2020-04-15] MEDS: Vancomycin 1000 MG in NS 0.9% 250 ML IVPB SCH ×2 (06:37→19:35)
[2020-04-15] MEDS: D5W 1/2 NS 1000 ml BAG 1,000 ML IV SCH (08:25)
[2020-04-15 08:30] LABS: Hematocrit 31 % (42-52); Hemoglobin 10.1 g/dL (14.0-18.0); Mean Corpuscular HGB Conc 33 g/dL (31-36); Mean Corpuscular Hemoglobin 30 pg (27-31); Mean Corpuscular Volume 90 fL (80-94); Mean Platelet Volume 7.9 fL (7.4-10.4); Platelet Count 322 10^3/uL (150-450); Red Blood Count 3.41 10^6 /uL (4.18-5.48); Red Cell Distribution Width 17 % (10-15); White Blood Count 17.5 10^3/uL (3.5-10.8)
[2020-04-15] MEDS: Ondansetron 4 mg VIAL 2 MG/ML 2 ml VIAL IV PRN ×2 (08:44→13:56)
[2020-04-15 09:08] LABS: Albumin 2.6 g/dL (3.2-5.2); Albumin/Globulin Ratio 0.8 (1-3); BUN/Creatinine Ratio 15.9 (8-20); C Reactive Protein 271.66 mg/L (<8.01); Calcium 8.2 mg/dL (8.6-10.3); EGFR African American 67.3 (>60); EGFR Non-African American 55.6 (>60); Globulin 3.3 g/dL (2-4); Indirect Bilirubin 0.4 mg/dL (0.3-1.0); Potassium 4.7 mmol/L (3.5-5.0); Total Bilirubin 0.6 mg/dL (0.2-1.0); Total Protein 5.9 g/dL (6.4-8.9)
[2020-04-15] MEDS: Heparin 5000 UNITS/ML 1 mL VIAL SUBCUT SCH ×2 (09:15→21:35)
[2020-04-15 09:20] LABS: ABS Lymphocytes 1.5 10^3/ul (1.0-4.8); ABS Monocytes 1.8 10^3/ul (0-0.8); ABS Neutrophils 14.1 10^3/ul (1.5-7.7); Eosinophil % 0.1 %; Lymphocyte % 8.7 %
[2020-04-15] MEDS: HYDROmorphone 0.5 MG/0.5 ML SYRINGE IV SLOW PU PRN ×3 (10:57→22:14)
[2020-04-15 15:05] LABS: Magnesium 1.9 mg/dL (1.9-2.7)
[2020-04-15 15:07] LABS: Phosphorus 2.2 mg/dL (2.5-5.0)
[2020-04-15] MEDS ORDERED: TPN 24 HR with D10W 1000 ml BAG 1,000 ML, Amino Acid Infusion 10% 850 ML, Sterile Water... IV SCH (17:00)
[2020-04-16] MEDS: HYDROmorphone 0.5 MG/0.5 ML SYRINGE IV SLOW PU PRN ×4 (00:28→10:50)
[2020-04-16] MEDS ORDERED: Vancomycin Trough Check NOTE FOLLOW UP ONE (05:30)
[2020-04-16 06:55] LABS: Albumin 2.6 g/dL (3.2-5.2); Albumin/Globulin Ratio 0.8 (1-3); BUN/Creatinine Ratio 14.6 (8-20); Calcium 8.5 mg/dL (8.6-10.3); EGFR African American 69.2 (>60); EGFR Non-African American 57.2 (>60); Globulin 3.2 g/dL (2-4); Phosphorus 2.2 mg/dL (2.5-5.0); Potassium 4.1 mmol/L (3.5-5.0); Total Bilirubin 0.5 mg/dL (0.2-1.0); Total Protein 5.8 g/dL (6.4-8.9)
[2020-04-16 07:56] LABS: Vancomycin Trough 16.3 mcg/mL
[2020-04-16] MEDS: Vancomycin 1000 MG in NS 0.9% 250 ML IVPB SCH ×2 (10:45→21:07)
[2020-04-16] MEDS: Heparin 5000 UNITS/ML 1 mL VIAL SUBCUT SCH ×2 (10:45→21:08)
[2020-04-16 13:31] LABS: Hematocrit 31 % (42-52); Mean Corpuscular HGB Conc 33 g/dL (31-36); Mean Corpuscular Hemoglobin 30 pg (27-31); Mean Corpuscular Volume 90 fL (80-94); Mean Platelet Volume 7.8 fL (7.4-10.4); Platelet Count 354 10^3/uL (150-450); Red Blood Count 3.38 10^6 /uL (4.18-5.48); Red Cell Distribution Width 17 % (10-15)
[2020-04-16 14:56] LABS: ABS Basophils 0.1 10^3/ul (0-0.2); ABS Lymphocytes 1.4 10^3/ul (1.0-4.8); ABS Monocytes 1.7 10^3/ul (0-0.8); ABS Neutrophils 12.7 10^3/ul (1.5-7.7); Eosinophil % 0.2 %; Lymphocyte % 9.1 %
[2020-04-16] MEDS: TPN 24 HR with Dextrose 50% Water 500 ML, Amino Acid Infusion 10% 850 ML, Sterile Water... CENTR SCH (16:55)
[2020-04-16] MEDS ORDERED: TPN 24 HR with Dextrose 50% Water 500 ML, Amino Acid Infusion 10% 850 ML, Sterile Water... CENTR SCH (17:00)
[2020-04-17 06:19] LABS: Hematocrit 28 % (42-52); Hemoglobin 9.1 g/dL (14.0-18.0); Mean Corpuscular HGB Conc 32 g/dL (31-36); Mean Corpuscular Hemoglobin 29 pg (27-31); Mean Corpuscular Volume 91 fL (80-94); Mean Platelet Volume 7.4 fL (7.4-10.4); Platelet Count 321 10^3/uL (150-450); Red Blood Count 3.11 10^6 /uL (4.18-5.48); Red Cell Distribution Width 17 % (10-15); White Blood Count 13.3 10^3/uL (3.5-10.8)
[2020-04-17 07:41] LABS: ABS Basophils 0.1 10^3/ul (0-0.2); ABS Lymphocytes 1.6 10^3/ul (1.0-4.8); ABS Monocytes 1.4 10^3/ul (0-0.8); ABS Neutrophils 10.2 10^3/ul (1.5-7.7); Eosinophil % 0.3 %; Lymphocyte % 11.8 %
[2020-04-17 07:43] LABS: Albumin 2.6 g/dL (3.2-5.2); Albumin/Globulin Ratio 0.8 (1-3); BUN/Creatinine Ratio 19.8 (8-20); C Reactive Protein 139.59 mg/L (<8.01); Calcium 8.6 mg/dL (8.6-10.3); EGFR African American 77.9 (>60); EGFR Non-African American 64.4 (>60); Globulin 3.1 g/dL (2-4); Phosphorus 2.4 mg/dL (2.5-5.0); Potassium 4.1 mmol/L (3.5-5.0); Total Bilirubin 0.4 mg/dL (0.2-1.0); Total Protein 5.7 g/dL (6.4-8.9)
[2020-04-17] MEDS: Vancomycin 1000 MG in NS 0.9% 250 ML IVPB SCH ×2 (10:41→21:51)
[2020-04-17] MEDS: Heparin 5000 UNITS/ML 1 mL VIAL SUBCUT SCH ×2 (17:56→21:51)
[2020-04-17] MEDS: TPN 24 HR with Dextrose 50% Water 500 ML, Amino Acid Infusion 10% 850 ML, Sterile Water... CENTR SCH (18:16)
[2020-04-18] MEDS: Heparin 5000 UNITS/ML 1 mL VIAL SUBCUT SCH ×2 (09:21→20:53)
[2020-04-18] MEDS ORDERED: Vancomycin Trough Check NOTE FOLLOW UP ONE (09:30)
[2020-04-18] MEDS: Vancomycin 1000 MG in NS 0.9% 250 ML IVPB SCH (09:57)
[2020-04-18] MEDS ORDERED: Saliva Substitute (NF) 1 SPRAY BTL MT PRN (10:21)
[2020-04-18 14:51] LABS: Albumin 2.5 g/dL (3.2-5.2); Calcium 8.7 mg/dL (8.6-10.3); Magnesium 2.1 mg/dL (1.9-2.7); Potassium 4.4 mmol/L (3.5-5.0); Total Bilirubin 0.4 mg/dL (0.2-1.0)
[2020-04-18 14:57] LABS: Albumin/Globulin Ratio 0.9 (1-3); BUN/Creatinine Ratio 24.2 (8-20); EGFR African American 88.9 (>60); EGFR Non-African American 73.5 (>60); Globulin 2.7 g/dL (2-4); Phosphorus 3.1 mg/dL (2.5-5.0); Total Protein 5.2 g/dL (6.4-8.9)
[2020-04-18] MEDS: SODIUM CHLORIDE CENT\\PICC SCH (18:03)
[2020-04-18] MEDS: TPN CENT\\PICC SCH (18:03)
[2020-04-18] MEDS: [UNRECOGNIZED DRUG - OTHER] CENT\\PICC SCH (18:03)
[2020-04-18] MEDS: POTASSIUM CHLORIDE TPN CENT\\PICC SCH (18:03)
[2020-04-18] MEDS: Vancomycin 750 MG in NS 0.9% 250 ML IVPB SCH (22:04)
[2020-04-19 05:30] LABS: Hematocrit 28 % (42-52); Hemoglobin 8.9 g/dL (14.0-18.0); Mean Corpuscular HGB Conc 32 g/dL (31-36); Mean Corpuscular Hemoglobin 29 pg (27-31); Mean Corpuscular Volume 90 fL (80-94); Mean Platelet Volume 7.3 fL (7.4-10.4); Platelet Count 370 10^3/uL (150-450); Red Blood Count 3.09 10^6 /uL (4.18-5.48); Red Cell Distribution Width 17 % (10-15); White Blood Count 13.7 10^3/uL (3.5-10.8)
[2020-04-19] MEDS: Ondansetron 4 mg VIAL 2 MG/ML 2 ml VIAL IV PRN (07:07)
[2020-04-19 08:39] LABS: ABS Basophils 0.1 10^3/ul (0-0.2); ABS Eosinophils 0.1 10^3/ul (0-0.6); ABS Lymphocytes 1.6 10^3/ul (1.0-4.8); ABS Monocytes 1.2 10^3/ul (0-0.8); ABS Neutrophils 10.6 10^3/ul (1.5-7.7)
[2020-04-19] MEDS: Vancomycin 750 MG in NS 0.9% 250 ML IVPB SCH ×2 (09:56→21:21)
[2020-04-19] MEDS: Heparin 5000 UNITS/ML 1 mL VIAL SUBCUT SCH ×2 (13:35→21:28)
[2020-04-19] MEDS: Pantoprazole VIAL 40 MG VIAL IV SCH (13:35)
[2020-04-19 14:17] LABS: BUN/Creatinine Ratio 23.3 (8-20); Blood Urea Nitrogen 24 mg/dL (6-24); CO2 Carbon Dioxide 26 mmol/L (22-32); Calcium 9.1 mg/dL (8.6-10.3); EGFR Non-African American 70.2 (>60); Glucose 156 mg/dL (70-100)
[2020-04-19 14:18] LABS: Total Iron Binding Capacity 168 mcg/dL (250-450); Transferrin 120 mg/dL (203-362)
[2020-04-19 14:34] LABS: Anion Gap 5 mmol/L (2-11); Chloride 116 mmol/L (101-111); Sodium 147 mmol/L (135-145)
[2020-04-19 14:39] LABS: % Iron Saturation 12 % (15-55); Ferritin 745.1 ng/mL (24-336); Iron < 20 ug/dL (50-212); Unsaturated Iron Binding < 153 ug/dL
[2020-04-19 14:43] LABS: Folate 7.03 ng/mL (>3.99); Vitamin B12 581 pg/mL (180-914)
[2020-04-19] MEDS: SODIUM CHLORIDE CENT\\PICC SCH (18:17)
[2020-04-19] MEDS: POTASSIUM CHLORIDE TPN CENT\\PICC SCH (18:17)
[2020-04-19] MEDS: TPN CENT\\PICC SCH (18:17)
[2020-04-19] MEDS: [UNRECOGNIZED DRUG - OTHER] CENT\\PICC SCH (18:17)
[2020-04-20] MEDS: Ondansetron 4 mg VIAL 2 MG/ML 2 ml VIAL IV PRN (00:59)
[2020-04-20 08:42] LABS: Hematocrit 30 % (42-52); Hemoglobin 9.5 g/dL (14.0-18.0); Mean Corpuscular HGB Conc 32 g/dL (31-36); Mean Corpuscular Hemoglobin 29 pg (27-31); Mean Corpuscular Volume 90 fL (80-94); Mean Platelet Volume 7.2 fL (7.4-10.4); Platelet Count 378 10^3/uL (150-450); Red Blood Count 3.27 10^6 /uL (4.18-5.48); Red Cell Distribution Width 17 % (10-15); White Blood Count 17.3 10^3/uL (3.5-10.8)
[2020-04-20 08:55] LABS: BUN/Creatinine Ratio 23.7 (8-20); Calcium 9.5 mg/dL (8.6-10.3); EGFR African American 75.6 (>60); EGFR Non-African American 62.5 (>60); Potassium 4.2 mmol/L (3.5-5.0)
[2020-04-20 09:48] LABS: ABS Basophils 0.1 10^3/ul (0-0.2); ABS Eosinophils 0.2 10^3/ul (0-0.6); ABS Lymphocytes 1.8 10^3/ul (1.0-4.8); ABS Monocytes 1.5 10^3/ul (0-0.8); ABS Neutrophils 13.7 10^3/ul (1.5-7.7); Eosinophil % 1.2 %; Lymphocyte % 10.5 %
[2020-04-20] MEDS: Pantoprazole VIAL 40 MG VIAL IV SCH (09:56)
[2020-04-20] MEDS: Heparin 5000 UNITS/ML 1 mL VIAL SUBCUT SCH ×2 (09:56→22:47)
[2020-04-20] MEDS: Vancomycin 750 MG in NS 0.9% 250 ML IVPB SCH ×2 (09:56→22:11)
[2020-04-20] MEDS ORDERED: Iohexol 300 (CONTRAST) 10 ML SDV IV ONE (13:07)
[2020-04-20] MEDS ORDERED: Metoprolol Tartrate 5 mg VIAL 5 ml VIAL (1 mg/ml) IV PRN (16:15)
[2020-04-20] MEDS ORDERED: SODIUM CHLORIDE CENT\\PICC SCH (17:00)
[2020-04-20] MEDS ORDERED: TPN CENT\\PICC SCH (17:00)
[2020-04-20] MEDS ORDERED: POTASSIUM CHLORIDE TPN CENT\\PICC SCH (17:00)
[2020-04-20] MEDS ORDERED: [UNRECOGNIZED DRUG - OTHER] CENT\\PICC SCH (17:00)
[2020-04-20] MEDS: Lidocaine Patch REMOVE PATCH PATCH OFF SCH (22:53)
[2020-04-21] MEDS: Lidocaine PATCH 5% PATCH TRANSDERM PRN (03:23)
[2020-04-21] MEDS: Ondansetron 4 mg VIAL 2 MG/ML 2 ml VIAL IV PRN (08:02)
[2020-04-21] MEDS ORDERED: Vancomycin Trough Check NOTE FOLLOW UP ONE (08:30)
[2020-04-21 09:04] LABS: Hematocrit 31 % (42-52); Hemoglobin 8.8 g/dL (14.0-18.0); Mean Corpuscular HGB Conc 28 g/dL (31-36); Mean Corpuscular Hemoglobin 34 pg (27-31); Mean Corpuscular Volume 120 fL (80-94); Mean Platelet Volume 8.4 fL (7.4-10.4); Platelet Count 319 10^3/uL (150-450); Red Cell Distribution Width 19 % (10-15); White Blood Count 12.3 10^3/uL (3.5-10.8)
[2020-04-21 09:54] LABS: ABS Eosinophils 0.3 10^3/ul (0-0.6); ABS Lymphocytes 1.5 10^3/ul (1.0-4.8); ABS Monocytes 1.1 10^3/ul (0-0.8); ABS Neutrophils 9.4 10^3/ul (1.5-7.7); Eosinophil % 2.1 %; Lymphocyte % 12.3 %; Nucleated Red Blood Cells % 0.1
[2020-04-21 09:55] LABS: Tear Drop Cells 1+
[2020-04-21 10:04] LABS: BUN/Creatinine Ratio 24.3 (8-20); EGFR African American 77.9 (>60); EGFR Non-African American 64.4 (>60)
[2020-04-21 10:24] LABS: Vancomycin Trough 17.1 mcg/mL
[2020-04-21 10:30] LABS: Hematocrit 28 % (42-52); Hemoglobin 8.7 g/dL (14.0-18.0); Mean Corpuscular HGB Conc 31 g/dL (31-36); Mean Corpuscular Hemoglobin 33 pg (27-31); Mean Corpuscular Volume 105 fL (80-94); Mean Platelet Volume 7.9 fL (7.4-10.4); Platelet Count 326 10^3/uL (150-450); Red Blood Count 2.67 10^6 /uL (4.18-5.48); Red Cell Distribution Width 18 % (10-15); White Blood Count 12.6 10^3/uL (3.5-10.8)
[2020-04-21 10:36] LABS: ABS Basophils 0.1 10^3/ul (0-0.2); ABS Eosinophils 0.3 10^3/ul (0-0.6); ABS Lymphocytes 1.4 10^3/ul (1.0-4.8); ABS Monocytes 1.1 10^3/ul (0-0.8); ABS Neutrophils 9.7 10^3/ul (1.5-7.7); Eosinophil % 2.2 %; Lymphocyte % 11.3 %
[2020-04-21 10:44] LABS: C Reactive Protein 35.92 mg/L (<8.01)
[2020-04-21] MEDS: Vancomycin 750 MG in NS 0.9% 250 ML IVPB SCH ×2 (10:46→20:08)
[2020-04-21] MEDS: Heparin 5000 UNITS/ML 1 mL VIAL SUBCUT SCH ×2 (10:46→20:08)
[2020-04-21] MEDS: Pantoprazole VIAL 40 MG VIAL IV SCH (10:46)
[2020-04-21] MEDS: TPN CENTRAL STANDARD BASE B CENT\\PICC SCH (17:03)
[2020-04-21] MEDS: Lidocaine Patch REMOVE PATCH PATCH OFF SCH (22:24)
[2020-04-22 05:42] LABS: Albumin 2.8 g/dL (3.2-5.2); Calcium 8.8 mg/dL (8.6-10.3); Potassium 4.2 mmol/L (3.5-5.0); Total Bilirubin 0.4 mg/dL (0.2-1.0)
[2020-04-22 05:48] LABS: Albumin/Globulin Ratio 0.9 (1-3); BUN/Creatinine Ratio 22.9 (8-20); EGFR African American 79.6 (>60); EGFR Non-African American 65.8 (>60); Globulin 3.1 g/dL (2-4); Phosphorus 2.5 mg/dL (2.5-5.0); Total Protein 5.9 g/dL (6.4-8.9)
[2020-04-22] MEDS: Pantoprazole VIAL 40 MG VIAL IV SCH (09:32)
[2020-04-22] MEDS: Vancomycin 750 MG in NS 0.9% 250 ML IVPB SCH (09:32)
[2020-04-22] MEDS: Heparin 5000 UNITS/ML 1 mL VIAL SUBCUT SCH ×2 (09:32→22:37)
[2020-04-22] MEDS: Ondansetron 4 mg VIAL 2 MG/ML 2 ml VIAL IV PRN (14:54)
[2020-04-22] MEDS: TPN CENTRAL STANDARD BASE B CENT\\PICC SCH (17:54)
[2020-04-22] MEDS: Lidocaine Patch REMOVE PATCH PATCH OFF SCH (22:13)
[2020-04-22 22:27] LABS: Carcinoembryonic Antigen 1.9 ng/mL (0.1-5.0)
[2020-04-23] MEDS: Vancomycin 750 MG in NS 0.9% 250 ML IVPB SCH ×3 (00:09→22:05)
[2020-04-23 07:14] LABS: Hematocrit 26 % (42-52); Hemoglobin 8.5 g/dL (14.0-18.0); Mean Corpuscular HGB Conc 33 g/dL (31-36); Mean Corpuscular Hemoglobin 29 pg (27-31); Mean Corpuscular Volume 90 fL (80-94); Platelet Count 335 10^3/uL (150-450); Red Cell Distribution Width 17 % (10-15); White Blood Count 15.6 10^3/uL (3.5-10.8)
[2020-04-23 07:26] LABS: Calcium 8.5 mg/dL (8.6-10.3); EGFR Non-African American 69.4 (>60); Potassium 3.9 mmol/L (3.5-5.0)
[2020-04-23] MEDS: Albuterol HFA INHALER 8 gm MDI INH PRN ×4 (08:18→21:32)
[2020-04-23 08:58] LABS: ABS Basophils 0.1 10^3/ul (0-0.2); ABS Eosinophils 0.4 10^3/ul (0-0.6); ABS Lymphocytes 1.5 10^3/ul (1.0-4.8); ABS Monocytes 1.6 10^3/ul (0-0.8); ABS Neutrophils 12.1 10^3/ul (1.5-7.7); Eosinophil % 2.5 %; Lymphocyte % 9.6 %
[2020-04-23] MEDS: Pantoprazole VIAL 40 MG VIAL IV SCH (09:49)
[2020-04-23] MEDS: Heparin 5000 UNITS/ML 1 mL VIAL SUBCUT SCH ×2 (09:53→21:25)
[2020-04-23 12:38] LABS: PSA Screening Total 45.838 ng/mL (0-4.000)
[2020-04-23] MEDS: TPN CENTRAL STANDARD BASE B CENT\\PICC SCH (17:00)
[2020-04-23] MEDS ORDERED: Furosemide 20 mg/2 ml IV VIAL IV SLOW PU ONE (17:19)
[2020-04-23] MEDS: Lidocaine Patch REMOVE PATCH PATCH OFF SCH (21:24)
[2020-04-23] MEDS: Ondansetron 4 mg VIAL 2 MG/ML 2 ml VIAL IV PRN (22:05)
[2020-04-24] MEDS: Albuterol HFA INHALER 8 gm MDI INH PRN ×4 (03:33→17:32)
[2020-04-24] MEDS ORDERED: Vancomycin Trough Check NOTE FOLLOW UP ONE (08:30)
[2020-04-24] MEDS: Vancomycin 750 MG in NS 0.9% 250 ML IVPB SCH ×2 (09:51→22:45)
[2020-04-24] MEDS: Heparin 5000 UNITS/ML 1 mL VIAL SUBCUT SCH ×2 (10:06→22:47)
[2020-04-24] MEDS: Pantoprazole VIAL 40 MG VIAL IV SCH (10:06)
[2020-04-24 10:13] LABS: Hematocrit 26 % (42-52); Hemoglobin 8.3 g/dL (14.0-18.0); Mean Corpuscular HGB Conc 33 g/dL (31-36); Mean Corpuscular Hemoglobin 29 pg (27-31); Mean Corpuscular Volume 89 fL (80-94); Mean Platelet Volume 7.8 fL (7.4-10.4); Platelet Count 347 10^3/uL (150-450); Red Blood Count 2.87 10^6 /uL (4.18-5.48); Red Cell Distribution Width 18 % (10-15)
[2020-04-24 10:15] LABS: ABS Basophils 0.1 10^3/ul (0-0.2); ABS Eosinophils 0.6 10^3/ul (0-0.6); ABS Lymphocytes 1.6 10^3/ul (1.0-4.8); ABS Monocytes 1.7 10^3/ul (0-0.8); ABS Neutrophils 12.1 10^3/ul (1.5-7.7); Eosinophil % 3.5 %; Lymphocyte % 9.8 %
[2020-04-24 10:28] LABS: BUN/Creatinine Ratio 23.8 (8-20); Calcium 8.3 mg/dL (8.6-10.3); EGFR African American 86.9 (>60); EGFR Non-African American 71.8 (>60); Potassium 3.7 mmol/L (3.5-5.0)
[2020-04-24] MEDS: TPN CENTRAL STANDARD BASE B CENT\\PICC SCH (17:13)
[2020-04-24] MEDS: Lidocaine Patch REMOVE PATCH PATCH OFF SCH (22:27)
[2020-04-24] MEDS: Ondansetron 4 mg VIAL 2 MG/ML 2 ml VIAL IV PRN (22:41)
[2020-04-25] MEDS: Albuterol HFA INHALER 8 gm MDI INH PRN (04:18)
[2020-04-25 06:35] LABS: Hematocrit 26 % (42-52); Hemoglobin 8.3 g/dL (14.0-18.0); Mean Corpuscular HGB Conc 32 g/dL (31-36); Mean Corpuscular Hemoglobin 29 pg (27-31); Mean Corpuscular Volume 89 fL (80-94); Platelet Count 363 10^3/uL (150-450); Red Cell Distribution Width 17 % (10-15)
[2020-04-25 06:46] LABS: Calcium 8.3 mg/dL (8.6-10.3); EGFR African American 92.1 (>60); EGFR Non-African American 76.2 (>60); Potassium 3.8 mmol/L (3.5-5.0)
[2020-04-25 06:57] LABS: ABS Basophils 0.1 10^3/ul (0-0.2); ABS Eosinophils 0.6 10^3/ul (0-0.6); ABS Lymphocytes 1.6 10^3/ul (1.0-4.8); ABS Monocytes 1.6 10^3/ul (0-0.8); ABS Neutrophils 11.2 10^3/ul (1.5-7.7); Lymphocyte % 10.4 %
[2020-04-25] MEDS ORDERED: Furosemide 20 mg/2 ml IV VIAL IV ONE ×3 (08:34→18:00)
[2020-04-25] MEDS: Vancomycin 750 MG in NS 0.9% 250 ML IVPB SCH ×2 (09:18→20:40)
[2020-04-25] MEDS: Heparin 5000 UNITS/ML 1 mL VIAL SUBCUT SCH ×2 (09:18→22:46)
[2020-04-25] MEDS: Pantoprazole VIAL 40 MG VIAL IV SCH (09:19)
[2020-04-25] MEDS: Ondansetron 4 mg VIAL 2 MG/ML 2 ml VIAL IV PRN (10:49)
[2020-04-25 16:55] LABS: Albumin 2.7 g/dL (3.2-5.2); Albumin/Globulin Ratio 0.8 (1-3); BUN/Creatinine Ratio 22.3 (8-20); Calcium 8.1 mg/dL (8.6-10.3); EGFR African American 94.4 (>60); Globulin 3.4 g/dL (2-4); Magnesium 1.9 mg/dL (1.9-2.7); Phosphorus 2.3 mg/dL (2.5-5.0); Potassium 3.5 mmol/L (3.5-5.0); Total Bilirubin 0.3 mg/dL (0.2-1.0); Total Protein 6.1 g/dL (6.4-8.9)
[2020-04-25] MEDS: TPN CENTRAL STANDARD BASE B CENT\\PICC SCH (17:05)
[2020-04-25] MEDS: Lidocaine Patch REMOVE PATCH PATCH OFF SCH (22:52)
[2020-04-26] MEDS: Ondansetron 4 mg VIAL 2 MG/ML 2 ml VIAL IV PRN ×2 (01:14→12:39)
[2020-04-26 05:02] LABS: ABS Basophils 0.1 10^3/ul (0-0.2); ABS Eosinophils 0.6 10^3/ul (0-0.6); ABS Lymphocytes 1.6 10^3/ul (1.0-4.8); ABS Monocytes 1.3 10^3/ul (0-0.8); ABS Neutrophils 9.5 10^3/ul (1.5-7.7); Eosinophil % 4.4 %; Hematocrit 27 % (42-52); Hemoglobin 8.5 g/dL (14.0-18.0); Lymphocyte % 12.4 %; Mean Corpuscular HGB Conc 32 g/dL (31-36); Mean Corpuscular Hemoglobin 29 pg (27-31); Mean Corpuscular Volume 90 fL (80-94); Platelet Count 361 10^3/uL (150-450); Red Blood Count 2.98 10^6 /uL (4.18-5.48); Red Cell Distribution Width 17 % (10-15); White Blood Count 13.1 10^3/uL (3.5-10.8)
[2020-04-26 05:14] LABS: BUN/Creatinine Ratio 21.1 (8-20); Calcium 8.4 mg/dL (8.6-10.3); EGFR African American 79.6 (>60); EGFR Non-African American 65.8 (>60); Potassium 3.3 mmol/L (3.5-5.0)
[2020-04-26] MEDS: KCL 20 MEQ/100 ML IVPREMIX 20 MEQ/100 ML BAG IV SCH ×3 (08:12→12:39)
[2020-04-26] MEDS ORDERED: Furosemide 20 mg/2 ml IV VIAL IV ONE (09:00)
[2020-04-26] MEDS: Vancomycin 750 MG in NS 0.9% 250 ML IVPB SCH ×2 (09:38→22:58)
[2020-04-26] MEDS: Heparin 5000 UNITS/ML 1 mL VIAL SUBCUT SCH ×2 (10:46→23:04)
[2020-04-26] MEDS: Pantoprazole VIAL 40 MG VIAL IV SCH (10:47)
[2020-04-26] MEDS: Albuterol HFA INHALER 8 gm MDI INH PRN (14:13)
[2020-04-26] MEDS ORDERED: Iohexol 300 (CONTRAST) 10 ML SDV IV ONE (15:46)
[2020-04-26] MEDS: TPN CENTRAL STANDARD BASE B CENT\\PICC SCH (17:07)
[2020-04-26] MEDS: Lidocaine Patch REMOVE PATCH PATCH OFF SCH (22:44)
[2020-04-27] MEDS: Albuterol HFA INHALER 8 gm MDI INH PRN (05:56)
[2020-04-27 06:43] LABS: BUN/Creatinine Ratio 22.9 (8-20); Calcium 8.5 mg/dL (8.6-10.3); EGFR African American 79.6 (>60); EGFR Non-African American 65.8 (>60); Potassium 3.6 mmol/L (3.5-5.0)
[2020-04-27] MEDS: Vancomycin 750 MG in NS 0.9% 250 ML IVPB SCH (09:51)
[2020-04-27] MEDS: Pantoprazole VIAL 40 MG VIAL IV SCH (10:01)
[2020-04-27] MEDS: Heparin 5000 UNITS/ML 1 mL VIAL SUBCUT SCH ×2 (10:01→23:55)
[2020-04-27 10:33] LABS: ABS Basophils 0.1 10^3/ul (0-0.2); ABS Eosinophils 0.5 10^3/ul (0-0.6); ABS Lymphocytes 1.5 10^3/ul (1.0-4.8); ABS Monocytes 1.1 10^3/ul (0-0.8); ABS Neutrophils 8.3 10^3/ul (1.5-7.7); Eosinophil % 4.7 %; Hematocrit 28 % (42-52); Lymphocyte % 12.9 %; Mean Corpuscular HGB Conc 33 g/dL (31-36); Mean Corpuscular Hemoglobin 29 pg (27-31); Mean Corpuscular Volume 89 fL (80-94); Mean Platelet Volume 7.9 fL (7.4-10.4); Platelet Count 367 10^3/uL (150-450); Red Blood Count 3.09 10^6 /uL (4.18-5.48); Red Cell Distribution Width 18 % (10-15); White Blood Count 11.6 10^3/uL (3.5-10.8)
[2020-04-27] MEDS: TPN CENTRAL STANDARD BASE B CENT\\PICC SCH (17:19)
[2020-04-28] MEDS: Vancomycin 750 MG in NS 0.9% 250 ML IVPB SCH ×2 (00:06→10:40)
[2020-04-28] MEDS: Ondansetron 4 mg VIAL 2 MG/ML 2 ml VIAL IV PRN ×3 (00:08→23:10)
[2020-04-28] MEDS: Albuterol HFA INHALER 8 gm MDI INH PRN (02:19)
[2020-04-28] MEDS: Lidocaine Patch REMOVE PATCH PATCH OFF SCH ×2 (05:37→21:09)
[2020-04-28 09:40] LABS: ABS Basophils 0.1 10^3/ul (0-0.2); ABS Eosinophils 0.5 10^3/ul (0-0.6); ABS Lymphocytes 1.4 10^3/ul (1.0-4.8); ABS Monocytes 1.2 10^3/ul (0-0.8); ABS Neutrophils 7.4 10^3/ul (1.5-7.7); Eosinophil % 4.7 %; Hematocrit 25 % (42-52); Hemoglobin 8.3 g/dL (14.0-18.0); Lymphocyte % 13.5 %; Mean Corpuscular HGB Conc 33 g/dL (31-36); Mean Corpuscular Hemoglobin 29 pg (27-31); Mean Corpuscular Volume 88 fL (80-94); Mean Platelet Volume 7.7 fL (7.4-10.4); Platelet Count 375 10^3/uL (150-450); Red Blood Count 2.88 10^6 /uL (4.18-5.48); Red Cell Distribution Width 17 % (10-15); White Blood Count 10.6 10^3/uL (3.5-10.8)
[2020-04-28 09:59] LABS: BUN/Creatinine Ratio 21.4 (8-20); Calcium 8.7 mg/dL (8.6-10.3); EGFR African American 85.9 (>60); EGFR Non-African American 70.2 (>60); Potassium 3.6 mmol/L (3.5-5.0)
[2020-04-28 10:10] LABS: Vancomycin Trough 18.3 mcg/mL
[2020-04-28] MEDS: Heparin 5000 UNITS/ML 1 mL VIAL SUBCUT SCH ×2 (10:40→21:08)
[2020-04-28] MEDS: Pantoprazole VIAL 40 MG VIAL IV SCH (10:40)
[2020-04-28] MEDS: TPN CENTRAL STANDARD BASE B CENT\\PICC SCH (18:10)
[2020-04-29] MEDS: Ondansetron 4 mg VIAL 2 MG/ML 2 ml VIAL IV PRN ×4 (03:30→20:24)
[2020-04-29 05:38] LABS: Albumin 2.7 g/dL (3.2-5.2); Albumin/Globulin Ratio 0.8 (1-3); Calcium 8.6 mg/dL (8.6-10.3); EGFR African American 87.9 (>60); EGFR Non-African American 72.6 (>60); Globulin 3.4 g/dL (2-4); Phosphorus 2.8 mg/dL (2.5-5.0); Potassium 3.8 mmol/L (3.5-5.0); Total Bilirubin 0.3 mg/dL (0.2-1.0); Total Protein 6.1 g/dL (6.4-8.9)
[2020-04-29] MEDS: Heparin 5000 UNITS/ML 1 mL VIAL SUBCUT SCH ×2 (11:10→22:33)
[2020-04-29] MEDS: Pantoprazole VIAL 40 MG VIAL IV SCH (11:10)
[2020-04-29] MEDS: TPN CENTRAL STANDARD BASE B CENT\\PICC SCH (18:14)
[2020-04-29] MEDS: Lidocaine Patch REMOVE PATCH PATCH OFF SCH (20:28)
[2020-04-29] MEDS: Prochlorperazine 5 mg/ml 2 ml VIAL (10 mg) IV PRN (22:33)
[2020-04-30] MEDS: Ondansetron 4 mg VIAL 2 MG/ML 2 ml VIAL IV PRN ×4 (01:08→17:39)
[2020-04-30 05:59] LABS: Hematocrit 25 % (42-52); Hemoglobin 8.1 g/dL (14.0-18.0); Mean Corpuscular HGB Conc 33 g/dL (31-36); Mean Corpuscular Hemoglobin 29 pg (27-31); Mean Corpuscular Volume 88 fL (80-94); Mean Platelet Volume 7.4 fL (7.4-10.4); Platelet Count 344 10^3/uL (150-450); Red Blood Count 2.81 10^6 /uL (4.18-5.48); Red Cell Distribution Width 17 % (10-15)
[2020-04-30] MEDS ORDERED: Lactated Ringers 1000 ml BAG 1,000 ML IV SCH (06:00)
[2020-04-30] MEDS ORDERED: Buffered Lidocaine 1% SYRIN 1 ml INTRADERM ONE ×2 (06:00→12:00)
[2020-04-30 06:16] LABS: Albumin 2.6 g/dL (3.2-5.2); Albumin/Globulin Ratio 0.8 (1-3); BUN/Creatinine Ratio 20.8 (8-20); Calcium 8.5 mg/dL (8.6-10.3); EGFR African American 86.9 (>60); EGFR Non-African American 71.8 (>60); Globulin 3.3 g/dL (2-4); Potassium 3.7 mmol/L (3.5-5.0); Total Bilirubin 0.3 mg/dL (0.2-1.0); Total Protein 5.9 g/dL (6.4-8.9)
[2020-04-30 07:46] LABS: ABS Basophils 0.1 10^3/ul (0-0.2); ABS Eosinophils 0.6 10^3/ul (0-0.6); ABS Monocytes 0.9 10^3/ul (0-0.8); ABS Neutrophils 5.5 10^3/ul (1.5-7.7); Eosinophil % 6.2 %; Lymphocyte % 21.8 %
[2020-04-30 08:18] LABS: C Reactive Protein 13.71 mg/L (<8.01)
[2020-04-30] MEDS: Pantoprazole VIAL 40 MG VIAL IV SCH (10:16)
[2020-04-30] MEDS: Heparin 5000 UNITS/ML 1 mL VIAL SUBCUT SCH ×2 (10:25→22:21)
[2020-04-30] MEDS ORDERED: Lidocaine 2% PF 5 ML VIAL ONE ×2 (11:57→11:58)
[2020-04-30] MEDS ORDERED: Rocuronium 50 mg VIAL 10 mg/ml 5 ml VIAL (50 mg) ONE (11:57)
[2020-04-30] MEDS ORDERED: fentaNYL 100 mcg/2 ml 50 MCG/ML VIAL ONE (11:57)
[2020-04-30] MEDS ORDERED: Etomidate 20 mg/10 ml 2 MG/ML 10 ml VIAL ONE (11:58)
[2020-04-30] MEDS ORDERED: Clindamycin 900 MG/D5W BAG 900 MG/50 ML BAG IVPB ONE (12:16)
[2020-04-30] MEDS ORDERED: Bupivacaine 0.5% SDV PF 30ML VIAL ONE (12:48)
[2020-04-30] MEDS ORDERED: Albumin Human 5% 12.5 GM/250 ML BTL IV ONE (13:00)
[2020-04-30] MEDS: Prochlorperazine 5 mg/ml 2 ml VIAL (10 mg) IV PRN (14:48)
[2020-04-30] MEDS: Albuterol HFA INHALER 8 gm MDI INH PRN (14:58)
[2020-04-30] MEDS: TPN CENTRAL STANDARD BASE B CENT\\PICC SCH (17:12)
[2020-04-30] MEDS ORDERED: HYDROmorphone 0.5 MG/0.5 ML SYRINGE ONE (17:29)
[2020-04-30] MEDS: Lidocaine Patch REMOVE PATCH PATCH OFF SCH (23:52)
[2020-05-01] MEDS: Albuterol HFA INHALER 8 gm MDI INH PRN ×3 (00:11→19:31)
[2020-05-01 06:05] LABS: ABS Basophils 0.1 10^3/ul (0-0.2); ABS Eosinophils 0.6 10^3/ul (0-0.6); ABS Lymphocytes 2.1 10^3/ul (1.0-4.8); ABS Monocytes 0.9 10^3/ul (0-0.8); ABS Neutrophils 5.8 10^3/ul (1.5-7.7); Eosinophil % 5.9 %; Hematocrit 26 % (42-52); Hemoglobin 8.5 g/dL (14.0-18.0); Lymphocyte % 22.2 %; Mean Corpuscular HGB Conc 33 g/dL (31-36); Mean Corpuscular Hemoglobin 29 pg (27-31); Mean Corpuscular Volume 89 fL (80-94); Mean Platelet Volume 7.6 fL (7.4-10.4); Platelet Count 348 10^3/uL (150-450); Red Cell Distribution Width 18 % (10-15); White Blood Count 9.3 10^3/uL (3.5-10.8)
[2020-05-01 06:27] LABS: BUN/Creatinine Ratio 20.8 (8-20); Calcium 8.5 mg/dL (8.6-10.3); EGFR African American 86.9 (>60); EGFR Non-African American 71.8 (>60); Potassium 3.9 mmol/L (3.5-5.0)
[2020-05-01] MEDS: Heparin 5000 UNITS/ML 1 mL VIAL SUBCUT SCH ×3 (09:50→22:11)
[2020-05-01] MEDS: Pantoprazole VIAL 40 MG VIAL IV SCH (09:54)
[2020-05-01] MEDS: Ondansetron 4 mg VIAL 2 MG/ML 2 ml VIAL IV PRN (13:34)
[2020-05-01] MEDS: HYDROmorphone 0.5 MG/0.5 ML SYRINGE IV SLOW PU PRN (13:37)
[2020-05-01] MEDS: TPN CENTRAL STANDARD BASE B CENT\\PICC SCH (17:24)
[2020-05-01] MEDS: Lidocaine Patch REMOVE PATCH PATCH OFF SCH (19:56)
[2020-05-02] MEDS: HYDROmorphone 0.5 MG/0.5 ML SYRINGE IV SLOW PU PRN ×3 (02:14→20:24)
[2020-05-02] MEDS: Albuterol HFA INHALER 8 gm MDI INH PRN ×2 (05:38→09:49)
[2020-05-02 06:13] LABS: Hematocrit 27 % (42-52); Hemoglobin 8.7 g/dL (14.0-18.0); Mean Corpuscular HGB Conc 32 g/dL (31-36); Mean Corpuscular Hemoglobin 29 pg (27-31); Mean Corpuscular Volume 89 fL (80-94); Mean Platelet Volume 7.6 fL (7.4-10.4); Platelet Count 349 10^3/uL (150-450); Red Blood Count 3.05 10^6 /uL (4.18-5.48); Red Cell Distribution Width 18 % (10-15); White Blood Count 9.9 10^3/uL (3.5-10.8)
[2020-05-02 06:33] LABS: ABS Basophils 0.1 10^3/ul (0-0.2); ABS Eosinophils 0.5 10^3/ul (0-0.6); ABS Lymphocytes 2.8 10^3/ul (1.0-4.8); ABS Monocytes 0.9 10^3/ul (0-0.8); ABS Neutrophils 5.6 10^3/ul (1.5-7.7); Eosinophil % 4.6 %
[2020-05-02 06:37] LABS: BUN/Creatinine Ratio 19.4 (8-20); Calcium 8.4 mg/dL (8.6-10.3); EGFR Non-African American 70.2 (>60)
[2020-05-02 07:42] LABS: Albumin 2.6 g/dL (3.2-5.2); Albumin/Globulin Ratio 0.8 (1-3); Globulin 3.1 g/dL (2-4); Magnesium 1.8 mg/dL (1.9-2.7); Phosphorus 2.9 mg/dL (2.5-5.0); Total Bilirubin 0.3 mg/dL (0.2-1.0); Total Protein 5.7 g/dL (6.4-8.9)
[2020-05-02] MEDS: Heparin 5000 UNITS/ML 1 mL VIAL SUBCUT SCH ×2 (11:48→21:40)
[2020-05-02] MEDS: Pantoprazole VIAL 40 MG VIAL IV SCH (11:53)
[2020-05-02] MEDS: TPN CENTRAL STANDARD BASE B CENT\\PICC SCH (18:01)
[2020-05-02] MEDS: Lidocaine Patch REMOVE PATCH PATCH OFF SCH (21:28)
[2020-05-02] MEDS: Lidocaine PATCH 5% PATCH TRANSDERM PRN (23:38)
[2020-05-03] MEDS: HYDROmorphone 0.5 MG/0.5 ML SYRINGE IV SLOW PU PRN ×3 (03:01→20:44)
[2020-05-03] MEDS: Pantoprazole VIAL 40 MG VIAL IV SCH (09:05)
[2020-05-03] MEDS: Heparin 5000 UNITS/ML 1 mL VIAL SUBCUT SCH ×2 (09:06→21:56)
[2020-05-03] MEDS: TPN CENTRAL STANDARD BASE B CENT\\PICC SCH (17:31)
[2020-05-03] MEDS: Ondansetron 4 mg VIAL 2 MG/ML 2 ml VIAL IV PRN (18:28)
[2020-05-03] MEDS: Lidocaine Patch REMOVE PATCH PATCH OFF SCH (20:52)
[2020-05-04] MEDS: HYDROmorphone 0.5 MG/0.5 ML SYRINGE IV SLOW PU PRN (01:39)
[2020-05-04 06:46] LABS: ABS Basophils 0.1 10^3/ul (0-0.2); ABS Eosinophils 0.6 10^3/ul (0-0.6); ABS Lymphocytes 2.1 10^3/ul (1.0-4.8); ABS Monocytes 0.7 10^3/ul (0-0.8); ABS Neutrophils 4.1 10^3/ul (1.5-7.7); Eosinophil % 8.2 %; Hematocrit 26 % (42-52); Hemoglobin 8.4 g/dL (14.0-18.0); Lymphocyte % 27.7 %; Mean Corpuscular HGB Conc 32 g/dL (31-36); Mean Corpuscular Hemoglobin 29 pg (27-31); Mean Corpuscular Volume 89 fL (80-94); Platelet Count 283 10^3/uL (150-450); Red Blood Count 2.94 10^6 /uL (4.18-5.48); Red Cell Distribution Width 19 % (10-15); White Blood Count 7.6 10^3/uL (3.5-10.8)
[2020-05-04 06:53] LABS: Calcium 8.3 mg/dL (8.6-10.3); EGFR African American 87.9 (>60); EGFR Non-African American 72.6 (>60); Magnesium 1.8 mg/dL (1.9-2.7); Phosphorus 3.3 mg/dL (2.5-5.0)
[2020-05-04] MEDS: Pantoprazole VIAL 40 MG VIAL IV SCH (09:54)
[2020-05-04] MEDS: Heparin 5000 UNITS/ML 1 mL VIAL SUBCUT SCH ×2 (09:54→21:34)
[2020-05-04] MEDS: TPN CENTRAL STANDARD BASE B CENT\\PICC SCH (16:36)
[2020-05-04] MEDS: Lidocaine Patch REMOVE PATCH PATCH OFF SCH (21:35)
[2020-05-05] MEDS ORDERED: Lactated Ringers 1000 ml BAG 1,000 ML IV SCH (06:00)
[2020-05-05] MEDS ORDERED: Buffered Lidocaine 1% SYRIN 1 ml INTRADERM ONE (06:00)
[2020-05-05] MEDS ORDERED: Clindamycin 900 MG/D5W BAG 900 MG/50 ML BAG IVPB ONE (09:26)
[2020-05-05] MEDS ORDERED: fentaNYL 100 mcg/2 ml 50 MCG/ML VIAL ONE ×3 (09:39→13:00)
[2020-05-05] MEDS ORDERED: Lidocaine 2% PF 5 ML VIAL ONE (09:40)
[2020-05-05] MEDS ORDERED: Rocuronium 50 mg VIAL 10 mg/ml 5 ml VIAL (50 mg) ONE ×2 (09:40→11:19)
[2020-05-05] MEDS ORDERED: Propofol 10 MG/ML 20 ML BTL ONE ×3 (09:41→12:11)
[2020-05-05] MEDS ORDERED: Bupivacaine 0.5% SDV PF 30ML VIAL ONE (09:46)
[2020-05-05] MEDS ORDERED: Albumin Human 5% 12.5 GM/250 ML BTL IV ONE (10:00)
[2020-05-05] MEDS ORDERED: Dexamethasone IV 4 MG/ML VIAL 1 ml VIAL ONE (10:52)
[2020-05-05] MEDS ORDERED: Ondansetron 4 mg VIAL 2 MG/ML 2 ml VIAL ONE (10:52)
[2020-05-05] MEDS ORDERED: Naloxone 0.4 mg VIAL 0.4 mg/ml 1 ml VIAL IV PRN (11:27)
[2020-05-05] MEDS ORDERED: DiMENhydriNATE IV 50 mg/ml 1 ml VIAL IV PUSH PRN (11:27)
[2020-05-05] MEDS ORDERED: ROPIVACAINE 5 MG/ML 30 ML BTL (0.5%) ONE (11:41)
[2020-05-05] MEDS ORDERED: Phenylephrine 40 mcg/mL 10mL (400mcg) SYRINGE ONE (11:55)
[2020-05-05] MEDS ORDERED: Bacitracin OINTMENT TUBE ONE (12:22)
[2020-05-05] MEDS: fentaNYL 100 mcg/2 ml 50 MCG/ML VIAL IV PRN ×4 (13:04→14:05)
[2020-05-05] MEDS ORDERED: HYDROmorphone PCA 20 MG/20 ML PCA.SYRING PCA SCH (15:00)
[2020-05-05] MEDS ORDERED: HYDROmorphone 0.5 MG/0.5 ML SYRINGE ONE (15:03)
[2020-05-05] MEDS: Lactated Ringers 1000 ml BAG 1,000 ML IV SCH (15:05)
[2020-05-05] MEDS ORDERED: HYDROmorphone 0.5 MG/0.5 ML SYRINGE IV ONE (15:05)
[2020-05-05] MEDS: Pantoprazole VIAL 40 MG VIAL IV SCH (15:10)
[2020-05-05] MEDS: TPN CENTRAL STANDARD BASE B CENT\\PICC SCH (17:21)
[2020-05-05] MEDS: Heparin 5000 UNITS/ML 1 mL VIAL SUBCUT SCH ×2 (17:54→22:02)
[2020-05-05] MEDS: Lidocaine Patch REMOVE PATCH PATCH OFF SCH (20:28)
[2020-05-06] MEDS: Lactated Ringers 1000 ml BAG 1,000 ML IV SCH (03:44)
[2020-05-06] MEDS: Heparin 5000 UNITS/ML 1 mL VIAL SUBCUT SCH ×3 (05:39→21:48)
[2020-05-06 06:21] LABS: Hematocrit 30 % (42-52); Mean Corpuscular HGB Conc 31 g/dL (31-36); Mean Corpuscular Hemoglobin 28 pg (27-31); Mean Corpuscular Volume 93 fL (80-94); Mean Platelet Volume 7.9 fL (7.4-10.4); Platelet Count 259 10^3/uL (150-450); Red Blood Count 3.19 10^6 /uL (4.18-5.48); Red Cell Distribution Width 19 % (10-15); White Blood Count 16.9 10^3/uL (3.5-10.8)
[2020-05-06 06:46] LABS: Albumin 2.6 g/dL (3.2-5.2); Albumin/Globulin Ratio 0.9 (1-3); BUN/Creatinine Ratio 25.5 (8-20); Calcium 8.2 mg/dL (8.6-10.3); EGFR Non-African American 74.4 (>60); Globulin 2.8 g/dL (2-4); Magnesium 1.7 mg/dL (1.9-2.7); Phosphorus 2.7 mg/dL (2.5-5.0); Potassium 4.4 mmol/L (3.5-5.0); Total Bilirubin 0.4 mg/dL (0.2-1.0); Total Protein 5.4 g/dL (6.4-8.9)
[2020-05-06] MEDS: Pantoprazole VIAL 40 MG VIAL IV SCH (10:26)
[2020-05-06] MEDS: HYDROmorphone 1 MG/1 ML SYRINGE IV SLOW PU PRN ×3 (11:59→19:46)
[2020-05-06 14:11] LABS: ABS Lymphocytes 1.3 10^3/ul (1.0-4.8); ABS Monocytes 1.6 10^3/ul (0-0.8); ABS Neutrophils 13.9 10^3/ul (1.5-7.7); Eosinophil % 0.1 %; Lymphocyte % 7.7 %
[2020-05-06] MEDS: TPN CENTRAL STANDARD BASE B CENT\\PICC SCH (16:29)
[2020-05-06] MEDS: Albuterol HFA INHALER 8 gm MDI INH PRN (16:34)
[2020-05-06] MEDS: Lidocaine Patch REMOVE PATCH PATCH OFF SCH (21:45)
[2020-05-07] MEDS: HYDROmorphone 1 MG/1 ML SYRINGE IV SLOW PU PRN ×4 (02:11→20:36)
[2020-05-07] MEDS ORDERED: Alteplase (CATHFLO) 2 MG VIAL IV ONE ×2 (03:41→04:15)
[2020-05-07] MEDS: Heparin 5000 UNITS/ML 1 mL VIAL SUBCUT SCH ×3 (04:58→20:38)
[2020-05-07 06:44] LABS: Albumin 2.5 g/dL (3.2-5.2); Albumin/Globulin Ratio 0.9 (1-3); BUN/Creatinine Ratio 29.7 (8-20); Calcium 8.1 mg/dL (8.6-10.3); EGFR African American 77.9 (>60); EGFR Non-African American 64.4 (>60); Globulin 2.9 g/dL (2-4); Phosphorus 2.8 mg/dL (2.5-5.0); Potassium 4.4 mmol/L (3.5-5.0); Total Bilirubin 0.5 mg/dL (0.2-1.0); Total Protein 5.4 g/dL (6.4-8.9)
[2020-05-07] MEDS: Pantoprazole VIAL 40 MG VIAL IV SCH (10:13)
[2020-05-07 11:49] LABS: Hematocrit 24 % (42-52); Hemoglobin 8.2 g/dL (14.0-18.0); Mean Corpuscular HGB Conc 34 g/dL (31-36); Mean Corpuscular Hemoglobin 30 pg (27-31); Mean Corpuscular Volume 89 fL (80-94); Mean Platelet Volume 8.3 fL (7.4-10.4); Platelet Count 235 10^3/uL (150-450); Red Blood Count 2.75 10^6 /uL (4.18-5.48); Red Cell Distribution Width 19 % (10-15); White Blood Count 13.9 10^3/uL (3.5-10.8)
[2020-05-07 12:07] LABS: ABS Basophils 0.1 10^3/ul (0-0.2); ABS Eosinophils 0.3 10^3/ul (0-0.6); ABS Lymphocytes 1.4 10^3/ul (1.0-4.8); ABS Monocytes 1.8 10^3/ul (0-0.8); ABS Neutrophils 10.3 10^3/ul (1.5-7.7); Eosinophil % 2.1 %; Lymphocyte % 10.2 %
[2020-05-07] MEDS: TPN CENTRAL STANDARD BASE B CENT\\PICC SCH (17:05)
[2020-05-07] MEDS: Lidocaine Patch REMOVE PATCH PATCH OFF SCH (20:33)
[2020-05-08] MEDS: HYDROmorphone 1 MG/1 ML SYRINGE IV SLOW PU PRN ×6 (02:17→23:29)
[2020-05-08] MEDS: Heparin 5000 UNITS/ML 1 mL VIAL SUBCUT SCH ×3 (05:25→20:27)
[2020-05-08] MEDS: Pantoprazole VIAL 40 MG VIAL IV SCH (08:52)
[2020-05-08] MEDS: Albuterol HFA INHALER 8 gm MDI INH PRN (16:41)
[2020-05-08] MEDS ORDERED: SODIUM CHLORIDE CENT\\PICC SCH (17:01)
[2020-05-08] MEDS ORDERED: [UNRECOGNIZED DRUG - OTHER] CENT\\PICC SCH (17:01)
[2020-05-08] MEDS ORDERED: POTASSIUM CHLORIDE TPN CENT\\PICC SCH (17:01)
[2020-05-08] MEDS ORDERED: TPN CENT\\PICC SCH (17:01)
[2020-05-08] MEDS: Lidocaine Patch REMOVE PATCH PATCH OFF SCH (20:28)
[2020-05-09] MEDS: HYDROmorphone 1 MG/1 ML SYRINGE IV SLOW PU PRN ×7 (02:16→23:36)
[2020-05-09] MEDS: Heparin 5000 UNITS/ML 1 mL VIAL SUBCUT SCH ×3 (04:39→22:09)
[2020-05-09 04:44] LABS: ABS Basophils 0.1 10^3/ul (0-0.2); ABS Eosinophils 0.6 10^3/ul (0-0.6); ABS Lymphocytes 1.3 10^3/ul (1.0-4.8); ABS Monocytes 1.2 10^3/ul (0-0.8); ABS Neutrophils 5.9 10^3/ul (1.5-7.7); Eosinophil % 7.1 %; Hematocrit 22 % (42-52); Lymphocyte % 13.9 %; Mean Corpuscular HGB Conc 32 g/dL (31-36); Mean Corpuscular Hemoglobin 29 pg (27-31); Mean Corpuscular Volume 89 fL (80-94); Mean Platelet Volume 8.2 fL (7.4-10.4); Platelet Count 233 10^3/uL (150-450); Red Blood Count 2.43 10^6 /uL (4.18-5.48); Red Cell Distribution Width 18 % (10-15); White Blood Count 9.1 10^3/uL (3.5-10.8)
[2020-05-09 05:29] LABS: Albumin 2.4 g/dL (3.2-5.2); Calcium 7.8 mg/dL (8.6-10.3); Magnesium 2.3 mg/dL (1.9-2.7); Potassium 4.5 mmol/L (3.5-5.0); Total Bilirubin 0.4 mg/dL (0.2-1.0)
[2020-05-09 05:35] LABS: Albumin/Globulin Ratio 0.9 (1-3); BUN/Creatinine Ratio 30.4 (8-20); EGFR African American 77.1 (>60); EGFR Non-African American 63.7 (>60); Globulin 2.6 g/dL (2-4); Phosphorus 3.3 mg/dL (2.5-5.0)
[2020-05-09] MEDS: Pantoprazole VIAL 40 MG VIAL IV SCH (08:24)
[2020-05-09 09:48] LABS: Hematocrit 26 % (42-52); Hemoglobin 8.2 g/dL (14.0-18.0)
[2020-05-09 09:57] LABS: C Reactive Protein 107.91 mg/L (<8.01)
[2020-05-09] MEDS: POTASSIUM CHLORIDE TPN CENT\\PICC SCH (17:35)
[2020-05-09] MEDS: SODIUM CHLORIDE CENT\\PICC SCH (17:35)
[2020-05-09] MEDS: TPN CENT\\PICC SCH (17:35)
[2020-05-09] MEDS: [UNRECOGNIZED DRUG - OTHER] CENT\\PICC SCH (17:35)
[2020-05-09] MEDS: Lidocaine Patch REMOVE PATCH PATCH OFF SCH (22:09)
[2020-05-10] MEDS: Albuterol HFA INHALER 8 gm MDI INH PRN ×4 (00:52→19:50)
[2020-05-10] MEDS: Ondansetron 4 mg VIAL 2 MG/ML 2 ml VIAL IV PRN ×2 (01:53→14:45)
[2020-05-10] MEDS: HYDROmorphone 1 MG/1 ML SYRINGE IV SLOW PU PRN ×5 (04:39→22:57)
[2020-05-10] MEDS: Heparin 5000 UNITS/ML 1 mL VIAL SUBCUT SCH ×3 (05:38→20:23)
[2020-05-10 06:17] LABS: ABS Basophils 0.1 10^3/ul (0-0.2); ABS Eosinophils 0.8 10^3/ul (0-0.6); ABS Lymphocytes 1.4 10^3/ul (1.0-4.8); ABS Monocytes 1.1 10^3/ul (0-0.8); ABS Neutrophils 5.6 10^3/ul (1.5-7.7); Eosinophil % 9.3 %; Hematocrit 22 % (42-52); Hemoglobin 7.2 g/dL (14.0-18.0); Lymphocyte % 15.5 %; Mean Corpuscular HGB Conc 33 g/dL (31-36); Mean Corpuscular Hemoglobin 29 pg (27-31); Mean Corpuscular Volume 89 fL (80-94); Mean Platelet Volume 8.3 fL (7.4-10.4); Platelet Count 253 10^3/uL (150-450); Red Blood Count 2.48 10^6 /uL (4.18-5.48); Red Cell Distribution Width 18 % (10-15)
[2020-05-10 06:39] LABS: C Reactive Protein 86.45 mg/L (<8.01)
[2020-05-10] MEDS: Pantoprazole VIAL 40 MG VIAL IV SCH (08:55)
[2020-05-10 11:14] LABS: BUN/Creatinine Ratio 30.1 (8-20); Calcium 8.2 mg/dL (8.6-10.3); EGFR Non-African American 70.2 (>60); Potassium 4.6 mmol/L (3.5-5.0)
[2020-05-10] MEDS: Nystatin SUSPENSION 100,000 UNITS/ML UDC PO SCH ×2 (17:27→20:23)
[2020-05-10] MEDS: SODIUM CHLORIDE CENT\\PICC SCH (17:28)
[2020-05-10] MEDS: [UNRECOGNIZED DRUG - OTHER] CENT\\PICC SCH (17:28)
[2020-05-10] MEDS: TPN CENT\\PICC SCH (17:28)
[2020-05-10] MEDS: POTASSIUM CHLORIDE TPN CENT\\PICC SCH (17:28)
[2020-05-10] MEDS: Lidocaine Patch REMOVE PATCH PATCH OFF SCH (20:24)
[2020-05-11] MEDS: HYDROmorphone 1 MG/1 ML SYRINGE IV SLOW PU PRN ×6 (04:09→21:39)
[2020-05-11] MEDS: Ondansetron 4 mg VIAL 2 MG/ML 2 ml VIAL IV PRN (04:15)
[2020-05-11] MEDS: Heparin 5000 UNITS/ML 1 mL VIAL SUBCUT SCH ×3 (05:31→21:41)
[2020-05-11 06:56] LABS: ABS Basophils 0.1 10^3/ul (0-0.2); ABS Eosinophils 0.8 10^3/ul (0-0.6); ABS Lymphocytes 1.2 10^3/ul (1.0-4.8); ABS Neutrophils 5.5 10^3/ul (1.5-7.7); Eosinophil % 8.9 %; Hematocrit 19 % (42-52); Hemoglobin 6.4 g/dL (14.0-18.0); Lymphocyte % 14.5 %; Mean Corpuscular HGB Conc 33 g/dL (31-36); Mean Corpuscular Hemoglobin 29 pg (27-31); Mean Corpuscular Volume 89 fL (80-94); Mean Platelet Volume 8.1 fL (7.4-10.4); Platelet Count 233 10^3/uL (150-450); Red Blood Count 2.16 10^6 /uL (4.18-5.48); Red Cell Distribution Width 18 % (10-15); White Blood Count 8.6 10^3/uL (3.5-10.8)
[2020-05-11] MEDS: Albuterol HFA INHALER 8 gm MDI INH PRN ×4 (07:33→23:33)
[2020-05-11] MEDS: Pantoprazole VIAL 40 MG VIAL IV SCH ×2 (08:59→21:38)
[2020-05-11] MEDS: Nystatin SUSPENSION 100,000 UNITS/ML UDC PO SCH ×4 (09:03→21:44)
[2020-05-11 13:16] LABS: Urine Appearance Cloudy; Urine Bilirubin Negative (Negative); Urine Blood 3+ (Negative); Urine Color Yellow; Urine Glucose Negative (Negative); Urine Ketones Negative (Negative); Urine Nitrite Negative (Negative); Urine Protein 2+(100 mg/dL) (Negative); Urine Specific Gravity 1.012 (1.010-1.030); Urine Urobilinogen Negative (Negative)
[2020-05-11 13:50] LABS: Hematocrit 25 % (42-52); Hemoglobin 8.2 g/dL (14.0-18.0)
[2020-05-11 13:59] LABS: Urine Bacteria 1+ (Absent); Urine Red Blood Cell 3+(>10/hpf) (Absent); Urine White Blood Cell 3+(>20/hpf) (Absent)
[2020-05-11] MEDS: TPN CENT\\PICC SCH (16:58)
[2020-05-11] MEDS: [UNRECOGNIZED DRUG - OTHER] CENT\\PICC SCH (16:58)
[2020-05-11] MEDS: POTASSIUM CHLORIDE TPN CENT\\PICC SCH (16:58)
[2020-05-11] MEDS: SODIUM CHLORIDE CENT\\PICC SCH (16:58)
[2020-05-11] MEDS: Lidocaine Patch REMOVE PATCH PATCH OFF SCH (21:24)
[2020-05-11 21:25] LABS: Hematocrit 25 % (42-52)
[2020-05-12] MEDS: HYDROmorphone 1 MG/1 ML SYRINGE IV SLOW PU PRN ×4 (02:11→20:38)
[2020-05-12] MEDS: Metoclopramide 5 MG/ML VIAL (10 mg) IV SLOW PU PRN ×3 (04:28→17:50)
[2020-05-12] MEDS: Albuterol HFA INHALER 8 gm MDI INH PRN ×2 (05:10→14:14)
[2020-05-12 08:28] LABS: ABS Basophils 0.1 10^3/ul (0-0.2); ABS Eosinophils 0.7 10^3/ul (0-0.6); ABS Lymphocytes 1.6 10^3/ul (1.0-4.8); ABS Monocytes 1.1 10^3/ul (0-0.8); ABS Neutrophils 6.6 10^3/ul (1.5-7.7); Eosinophil % 7.3 %; Hematocrit 25 % (42-52); Hemoglobin 8.2 g/dL (14.0-18.0); Lymphocyte % 16.2 %; Mean Corpuscular HGB Conc 33 g/dL (31-36); Mean Corpuscular Hemoglobin 29 pg (27-31); Mean Corpuscular Volume 89 fL (80-94); Mean Platelet Volume 7.9 fL (7.4-10.4); Platelet Count 290 10^3/uL (150-450); Red Blood Count 2.81 10^6 /uL (4.18-5.48); Red Cell Distribution Width 18 % (10-15); White Blood Count 10.1 10^3/uL (3.5-10.8)
[2020-05-12] MEDS: Heparin 5000 UNITS/ML 1 mL VIAL SUBCUT SCH ×3 (08:48→22:42)
[2020-05-12] MEDS: Nystatin SUSPENSION 100,000 UNITS/ML UDC PO SCH ×4 (09:13→22:41)
[2020-05-12] MEDS: Pantoprazole VIAL 40 MG VIAL IV SCH ×2 (09:14→22:41)
[2020-05-12] MEDS: Lidocaine PATCH 5% PATCH TRANSDERM PRN (10:37)
[2020-05-12] MEDS: TPN CENT\\PICC SCH (16:36)
[2020-05-12] MEDS: [UNRECOGNIZED DRUG - OTHER] CENT\\PICC SCH (16:36)
[2020-05-12] MEDS: POTASSIUM CHLORIDE TPN CENT\\PICC SCH (16:36)
[2020-05-12] MEDS: Cefepime 1 GM in Dextrose 1 GM/50 ML BAG IV SCH (16:36)
[2020-05-12] MEDS: SODIUM CHLORIDE CENT\\PICC SCH (16:36)
[2020-05-12] MEDS: Ondansetron 4 mg VIAL 2 MG/ML 2 ml VIAL IV PRN (20:43)
[2020-05-12] MEDS: Lidocaine Patch REMOVE PATCH PATCH OFF SCH (22:40)
[2020-05-13] MEDS: Albuterol HFA INHALER 8 gm MDI INH PRN ×4 (02:01→19:56)
[2020-05-13] MEDS: Cefepime 1 GM in Dextrose 1 GM/50 ML BAG IV SCH (04:26)
[2020-05-13] MEDS: HYDROmorphone 1 MG/1 ML SYRINGE IV SLOW PU PRN (04:57)
[2020-05-13] MEDS: Heparin 5000 UNITS/ML 1 mL VIAL SUBCUT SCH ×3 (04:58→22:59)
[2020-05-13 06:50] LABS: ABS Basophils 0.1 10^3/ul (0-0.2); ABS Eosinophils 0.8 10^3/ul (0-0.6); ABS Lymphocytes 1.6 10^3/ul (1.0-4.8); ABS Neutrophils 6.1 10^3/ul (1.5-7.7); Eosinophil % 8.3 %; Hematocrit 25 % (42-52); Lymphocyte % 16.7 %; Mean Corpuscular HGB Conc 32 g/dL (31-36); Mean Corpuscular Hemoglobin 29 pg (27-31); Mean Corpuscular Volume 90 fL (80-94); Mean Platelet Volume 8.2 fL (7.4-10.4); Platelet Count 309 10^3/uL (150-450); Red Cell Distribution Width 18 % (10-15); White Blood Count 9.6 10^3/uL (3.5-10.8)
[2020-05-13 06:56] LABS: INR 1.17 (0.82-1.09)
[2020-05-13 07:00] LABS: Calcium 8.5 mg/dL (8.6-10.3); Potassium 4.2 mmol/L (3.5-5.0)
[2020-05-13 07:06] LABS: BUN/Creatinine Ratio 23.5 (8-20); EGFR African American 85.9 (>60)
[2020-05-13] MEDS: Nystatin SUSPENSION 100,000 UNITS/ML UDC PO SCH ×4 (07:59→23:01)
[2020-05-13] MEDS: Pantoprazole VIAL 40 MG VIAL IV SCH ×2 (08:04→23:04)
[2020-05-13] MEDS: HYDROmorphone 0.5 MG/0.5 ML SYRINGE IV SLOW PU PRN ×2 (12:30→22:50)
[2020-05-13] MEDS ORDERED: Albuterol 2.5mg/3 ml (0.083%) NEB.SOLN INH ONE (14:00)
[2020-05-13] MEDS ORDERED: HYDROmorphone 0.5 MG/0.5 ML SYRINGE IV SLOW PU ONE (14:29)
[2020-05-13] MEDS: cefTRIAXone 1 gm/50 mL NS BAG 1 GM/50 ML BAG IVPB SCH (15:51)
[2020-05-13] MEDS ORDERED: Furosemide 20 mg/2 ml IV VIAL IV ONE (16:33)
[2020-05-13] MEDS ORDERED: Iohexol 350 (CONTRAST) 500 ML MDV IV ONE (16:58)
[2020-05-13] MEDS: SODIUM CHLORIDE CENT\\PICC SCH ×2 (18:49→23:04)
[2020-05-13] MEDS: POTASSIUM CHLORIDE TPN CENT\\PICC SCH ×2 (18:49→23:04)
[2020-05-13] MEDS: TPN CENT\\PICC SCH ×2 (18:49→23:04)
[2020-05-13] MEDS: [UNRECOGNIZED DRUG - OTHER] CENT\\PICC SCH ×2 (18:49→23:04)
[2020-05-13] MEDS ORDERED: Furosemide 20 mg/2 ml IV VIAL IV SLOW PU ONE (19:00)
[2020-05-13] MEDS: Lidocaine Patch REMOVE PATCH PATCH OFF SCH (23:05)
[2020-05-14] MEDS: Albuterol HFA INHALER 8 gm MDI INH PRN ×4 (04:34→18:55)
[2020-05-14 05:12] LABS: ABS Basophils 0.1 10^3/ul (0-0.2); ABS Eosinophils 0.7 10^3/ul (0-0.6); ABS Lymphocytes 1.5 10^3/ul (1.0-4.8); ABS Neutrophils 4.6 10^3/ul (1.5-7.7); Eosinophil % 9.5 %; Hematocrit 24 % (42-52); Mean Corpuscular HGB Conc 33 g/dL (31-36); Mean Corpuscular Hemoglobin 29 pg (27-31); Mean Corpuscular Volume 88 fL (80-94); Mean Platelet Volume 8.2 fL (7.4-10.4); Platelet Count 326 10^3/uL (150-450); Red Blood Count 2.76 10^6 /uL (4.18-5.48); Red Cell Distribution Width 18 % (10-15); White Blood Count 7.9 10^3/uL (3.5-10.8)
[2020-05-14 05:34] LABS: Albumin 2.7 g/dL (3.2-5.2); Albumin/Globulin Ratio 0.8 (1-3); BUN/Creatinine Ratio 19.6 (8-20); Calcium 8.4 mg/dL (8.6-10.3); EGFR African American 77.1 (>60); EGFR Non-African American 63.7 (>60); Globulin 3.6 g/dL (2-4); Phosphorus 3.8 mg/dL (2.5-5.0); Potassium 3.7 mmol/L (3.5-5.0); Total Bilirubin 0.3 mg/dL (0.2-1.0); Total Protein 6.3 g/dL (6.4-8.9)
[2020-05-14] MEDS: Heparin 5000 UNITS/ML 1 mL VIAL SUBCUT SCH ×3 (05:35→21:44)
[2020-05-14] MEDS: Nystatin SUSPENSION 100,000 UNITS/ML UDC PO SCH ×4 (08:15→21:36)
[2020-05-14] MEDS: Pantoprazole VIAL 40 MG VIAL IV SCH ×2 (08:15→21:36)
[2020-05-14] MEDS: Ondansetron 4 mg VIAL 2 MG/ML 2 ml VIAL IV PRN ×2 (12:39→18:22)
[2020-05-14] MEDS: cefTRIAXone 1 gm/50 mL NS BAG 1 GM/50 ML BAG IVPB SCH (16:29)
[2020-05-14] MEDS: POTASSIUM CHLORIDE TPN CENT\\PICC SCH (17:43)
[2020-05-14] MEDS: SODIUM CHLORIDE CENT\\PICC SCH (17:43)
[2020-05-14] MEDS: TPN CENT\\PICC SCH (17:43)
[2020-05-14] MEDS: [UNRECOGNIZED DRUG - OTHER] CENT\\PICC SCH (17:43)
[2020-05-15] MEDS: Albuterol HFA INHALER 8 gm MDI INH PRN ×5 (01:02→22:07)
[2020-05-15] MEDS: Lidocaine Patch REMOVE PATCH PATCH OFF SCH ×2 (01:06→20:31)
[2020-05-15] MEDS: Heparin 5000 UNITS/ML 1 mL VIAL SUBCUT SCH ×3 (05:57→22:04)
[2020-05-15 06:30] LABS: ABS Basophils 0.1 10^3/ul (0-0.2); ABS Eosinophils 0.6 10^3/ul (0-0.6); ABS Lymphocytes 1.6 10^3/ul (1.0-4.8); Eosinophil % 8.1 %; Hematocrit 24 % (42-52); Hemoglobin 7.6 g/dL (14.0-18.0); Mean Corpuscular HGB Conc 32 g/dL (31-36); Mean Corpuscular Hemoglobin 29 pg (27-31); Mean Corpuscular Volume 89 fL (80-94); Mean Platelet Volume 7.9 fL (7.4-10.4); Platelet Count 324 10^3/uL (150-450); Red Blood Count 2.66 10^6 /uL (4.18-5.48); Red Cell Distribution Width 18 % (10-15); White Blood Count 7.3 10^3/uL (3.5-10.8)
[2020-05-15 06:42] LABS: Calcium 7.9 mg/dL (8.6-10.3); Potassium 3.8 mmol/L (3.5-5.0)
[2020-05-15 06:47] LABS: BUN/Creatinine Ratio 17.8 (8-20); EGFR African American 81.3 (>60); EGFR Non-African American 67.2 (>60)
[2020-05-15] MEDS: Pantoprazole VIAL 40 MG VIAL IV SCH ×2 (09:04→20:28)
[2020-05-15] MEDS: Nystatin SUSPENSION 100,000 UNITS/ML UDC PO SCH ×4 (09:20→20:25)
[2020-05-15] MEDS: Furosemide 40 mg/4 ml IV VIAL IV SCH (11:40)
[2020-05-15] MEDS: cefTRIAXone 1 gm/50 mL NS BAG 1 GM/50 ML BAG IVPB SCH (16:20)
[2020-05-15] MEDS: Ondansetron 4 mg VIAL 2 MG/ML 2 ml VIAL IV PRN (18:33)
[2020-05-16] MEDS: Albuterol HFA INHALER 8 gm MDI INH PRN ×2 (01:42→06:39)
[2020-05-16] MEDS: Ondansetron 4 mg VIAL 2 MG/ML 2 ml VIAL IV PRN ×2 (01:56→10:45)
[2020-05-16] MEDS: Heparin 5000 UNITS/ML 1 mL VIAL SUBCUT SCH ×3 (04:26→22:56)
[2020-05-16 04:51] LABS: ABS Basophils 0.1 10^3/ul (0-0.2); ABS Eosinophils 0.6 10^3/ul (0-0.6); ABS Lymphocytes 1.8 10^3/ul (1.0-4.8); ABS Monocytes 0.7 10^3/ul (0-0.8); ABS Neutrophils 4.1 10^3/ul (1.5-7.7); Eosinophil % 8.1 %; Hematocrit 26 % (42-52); Hemoglobin 8.3 g/dL (14.0-18.0); Lymphocyte % 25.3 %; Mean Corpuscular HGB Conc 32 g/dL (31-36); Mean Corpuscular Hemoglobin 29 pg (27-31); Mean Corpuscular Volume 89 fL (80-94); Mean Platelet Volume 7.9 fL (7.4-10.4); Platelet Count 378 10^3/uL (150-450); Red Cell Distribution Width 18 % (10-15); White Blood Count 7.3 10^3/uL (3.5-10.8)
[2020-05-16 05:16] LABS: BUN/Creatinine Ratio 13.8 (8-20); Calcium 8.2 mg/dL (8.6-10.3); EGFR African American 69.2 (>60); EGFR Non-African American 57.2 (>60); Potassium 3.7 mmol/L (3.5-5.0)
[2020-05-16] MEDS: Furosemide 40 mg/4 ml IV VIAL IV SCH (09:26)
[2020-05-16] MEDS: Pantoprazole VIAL 40 MG VIAL IV SCH ×2 (09:26→20:51)
[2020-05-16] MEDS: Nystatin SUSPENSION 100,000 UNITS/ML UDC PO SCH ×4 (09:31→20:50)
[2020-05-16] MEDS: Metoclopramide 5 MG/ML VIAL (10 mg) IV SLOW PU PRN (11:54)
[2020-05-16] MEDS ORDERED: Albuterol 2.5mg/3 ml (0.083%) NEB.SOLN INH ONE (15:29)
[2020-05-16] MEDS: Albuterol 2.5mg/3 ml (0.083%) NEB.SOLN INH PRN (15:32)
[2020-05-16] MEDS: cefTRIAXone 1 gm/50 mL NS BAG 1 GM/50 ML BAG IVPB SCH (16:27)
[2020-05-16] MEDS: Lidocaine Patch REMOVE PATCH PATCH OFF SCH (23:36)
[2020-05-17] MEDS: Albuterol 2.5mg/3 ml (0.083%) NEB.SOLN INH PRN ×4 (01:47→22:00)
[2020-05-17] MEDS: Heparin 5000 UNITS/ML 1 mL VIAL SUBCUT SCH ×3 (06:10→20:33)
[2020-05-17] MEDS: Ondansetron 4 mg VIAL 2 MG/ML 2 ml VIAL IV PRN ×2 (06:17→21:54)
[2020-05-17] MEDS: Albuterol HFA INHALER 8 gm MDI INH PRN (06:39)
[2020-05-17] MEDS: Pantoprazole VIAL 40 MG VIAL IV SCH (08:23)
[2020-05-17] MEDS: Nystatin SUSPENSION 100,000 UNITS/ML UDC PO SCH ×2 (08:27→12:57)
[2020-05-17] MEDS: Furosemide 40 mg/4 ml IV VIAL IV SCH (08:27)
[2020-05-17 08:38] LABS: ABS Basophils 0.1 10^3/ul (0-0.2); ABS Eosinophils 0.4 10^3/ul (0-0.6); ABS Lymphocytes 1.6 10^3/ul (1.0-4.8); ABS Monocytes 0.7 10^3/ul (0-0.8); ABS Neutrophils 5.7 10^3/ul (1.5-7.7); Eosinophil % 5.2 %; Hematocrit 24 % (42-52); Hemoglobin 7.9 g/dL (14.0-18.0); Lymphocyte % 18.5 %; Mean Corpuscular HGB Conc 33 g/dL (31-36); Mean Corpuscular Hemoglobin 29 pg (27-31); Mean Corpuscular Volume 88 fL (80-94); Mean Platelet Volume 7.4 fL (7.4-10.4); Platelet Count 337 10^3/uL (150-450); Red Blood Count 2.75 10^6 /uL (4.18-5.48); Red Cell Distribution Width 18 % (10-15); White Blood Count 8.5 10^3/uL (3.5-10.8)
[2020-05-17 08:57] LABS: BUN/Creatinine Ratio 13.6 (8-20); Calcium 8.1 mg/dL (8.6-10.3); EGFR African American 67.9 (>60); EGFR Non-African American 56.2 (>60); Potassium 3.1 mmol/L (3.5-5.0)
[2020-05-17] MEDS: KCL 20 MEQ/100 ML IVPREMIX 20 MEQ/100 ML BAG IV SCH ×3 (13:29→20:32)
[2020-05-17] MEDS: cefTRIAXone 1 gm/50 mL NS BAG 1 GM/50 ML BAG IVPB SCH (16:24)
[2020-05-17] MEDS: Lidocaine Patch REMOVE PATCH PATCH OFF SCH (20:28)
[2020-05-18] MEDS: Albuterol 2.5mg/3 ml (0.083%) NEB.SOLN INH PRN (04:54)
[2020-05-18] MEDS: Heparin 5000 UNITS/ML 1 mL VIAL SUBCUT SCH ×3 (05:21→22:00)
[2020-05-18 05:35] LABS: ABS Basophils 0.1 10^3/ul (0-0.2); ABS Eosinophils 0.4 10^3/ul (0-0.6); ABS Lymphocytes 2.1 10^3/ul (1.0-4.8); ABS Monocytes 0.8 10^3/ul (0-0.8); ABS Neutrophils 5.2 10^3/ul (1.5-7.7); Hematocrit 24 % (42-52); Hemoglobin 7.8 g/dL (14.0-18.0); Lymphocyte % 24.9 %; Mean Corpuscular HGB Conc 32 g/dL (31-36); Mean Corpuscular Hemoglobin 29 pg (27-31); Mean Corpuscular Volume 88 fL (80-94); Mean Platelet Volume 7.7 fL (7.4-10.4); Platelet Count 332 10^3/uL (150-450); Red Blood Count 2.73 10^6 /uL (4.18-5.48); Red Cell Distribution Width 18 % (10-15); White Blood Count 8.6 10^3/uL (3.5-10.8)
[2020-05-18 05:53] LABS: BUN/Creatinine Ratio 11.9 (8-20); Calcium 7.9 mg/dL (8.6-10.3); EGFR African American 72.6 (>60); Potassium 3.5 mmol/L (3.5-5.0)
[2020-05-18] MEDS: Pantoprazole VIAL 40 MG VIAL IV SCH (08:46)
[2020-05-18] MEDS: Ondansetron 4 mg VIAL 2 MG/ML 2 ml VIAL IV PRN ×2 (10:17→23:14)
[2020-05-18] MEDS: cefTRIAXone 1 gm/50 mL NS BAG 1 GM/50 ML BAG IVPB SCH (15:52)
[2020-05-18] MEDS: Lidocaine Patch REMOVE PATCH PATCH OFF SCH (20:13)
[2020-05-19] MEDS: Albuterol HFA INHALER 8 gm MDI INH PRN ×2 (03:06→20:02)
[2020-05-19] MEDS: Heparin 5000 UNITS/ML 1 mL VIAL SUBCUT SCH ×3 (05:45→21:21)
[2020-05-19 05:57] LABS: ABS Basophils 0.1 10^3/ul (0-0.2); ABS Eosinophils 0.7 10^3/ul (0-0.6); ABS Monocytes 0.6 10^3/ul (0-0.8); ABS Neutrophils 3.7 10^3/ul (1.5-7.7); Eosinophil % 9.4 %; Hematocrit 24 % (42-52); Lymphocyte % 27.9 %; Mean Corpuscular HGB Conc 33 g/dL (31-36); Mean Corpuscular Hemoglobin 29 pg (27-31); Mean Corpuscular Volume 88 fL (80-94); Mean Platelet Volume 7.6 fL (7.4-10.4); Platelet Count 332 10^3/uL (150-450); Red Blood Count 2.75 10^6 /uL (4.18-5.48); Red Cell Distribution Width 18 % (10-15); White Blood Count 7.1 10^3/uL (3.5-10.8)
[2020-05-19] MEDS: Albuterol 2.5mg/3 ml (0.083%) NEB.SOLN INH PRN ×2 (06:13→13:40)
[2020-05-19 06:15] LABS: BUN/Creatinine Ratio 9.8 (8-20); Calcium 8.2 mg/dL (8.6-10.3); EGFR African American 69.2 (>60); EGFR Non-African American 57.2 (>60); Potassium 3.4 mmol/L (3.5-5.0)
[2020-05-19] MEDS: KCL 20 MEQ/100 ML IVPREMIX 20 MEQ/100 ML BAG IV SCH ×3 (08:36→17:33)
[2020-05-19] MEDS: Pantoprazole VIAL 40 MG VIAL IV SCH (08:36)
[2020-05-19] MEDS: HYDROmorphone 0.5 MG/0.5 ML SYRINGE IV SLOW PU PRN (13:42)
[2020-05-19] MEDS: cefTRIAXone 1 gm/50 mL NS BAG 1 GM/50 ML BAG IVPB SCH (16:01)
[2020-05-19] MEDS ORDERED: KCL 20 MEQ/100 ML IVPREMIX 20 MEQ/100 ML BAG ONE (17:31)
[2020-05-19] MEDS: Lidocaine Patch REMOVE PATCH PATCH OFF SCH (21:04)
[2020-05-19] MEDS: Metoclopramide 5 MG/ML VIAL (10 mg) IV SLOW PU PRN (21:45)
[2020-05-20] MEDS: Albuterol HFA INHALER 8 gm MDI INH PRN ×4 (00:14→19:55)
[2020-05-20] MEDS: Heparin 5000 UNITS/ML 1 mL VIAL SUBCUT SCH ×3 (06:33→22:00)
[2020-05-20 08:18] LABS: ABS Basophils 0.1 10^3/ul (0-0.2); ABS Eosinophils 0.7 10^3/ul (0-0.6); ABS Monocytes 0.6 10^3/ul (0-0.8); ABS Neutrophils 3.9 10^3/ul (1.5-7.7); Eosinophil % 9.1 %; Hematocrit 27 % (42-52); Hemoglobin 8.6 g/dL (14.0-18.0); Lymphocyte % 27.9 %; Mean Corpuscular HGB Conc 32 g/dL (31-36); Mean Corpuscular Hemoglobin 29 pg (27-31); Mean Corpuscular Volume 89 fL (80-94); Mean Platelet Volume 7.5 fL (7.4-10.4); Platelet Count 341 10^3/uL (150-450); Red Blood Count 2.99 10^6 /uL (4.18-5.48); Red Cell Distribution Width 19 % (10-15); White Blood Count 7.2 10^3/uL (3.5-10.8)
[2020-05-20 08:27] LABS: BUN/Creatinine Ratio 9.2 (8-20); Calcium 8.4 mg/dL (8.6-10.3); EGFR Non-African American 74.4 (>60); Magnesium 1.6 mg/dL (1.9-2.7); Potassium 3.8 mmol/L (3.5-5.0)
[2020-05-20] MEDS: Metoclopramide 5 MG/ML VIAL (10 mg) IV SLOW PU PRN ×2 (08:30→14:05)
[2020-05-20] MEDS ORDERED: Magnesium Sulfate IV 3 GM in NS 0.9% 100 ml BAG 100 ML IVPB ONE (08:31)
[2020-05-20] MEDS: Pantoprazole VIAL 40 MG VIAL IV SCH (08:33)
[2020-05-20 09:55] LABS: C Reactive Protein 16.62 mg/L (<8.01)
[2020-05-20] MEDS: Lidocaine Patch REMOVE PATCH PATCH OFF SCH (22:00)
[2020-05-20] MEDS: Albuterol 2.5mg/3 ml (0.083%) NEB.SOLN INH PRN (23:10)
[2020-05-21] MEDS: Albuterol HFA INHALER 8 gm MDI INH PRN ×3 (03:19→18:21)
[2020-05-21] MEDS: Heparin 5000 UNITS/ML 1 mL VIAL SUBCUT SCH ×3 (05:27→21:49)
[2020-05-21] MEDS: Albuterol 2.5mg/3 ml (0.083%) NEB.SOLN INH PRN (05:30)
[2020-05-21] MEDS: Pantoprazole VIAL 40 MG VIAL IV SCH (09:11)
[2020-05-21] MEDS: Lidocaine Patch REMOVE PATCH PATCH OFF SCH (21:50)
[2020-05-21] MEDS: Ondansetron 4 mg VIAL 2 MG/ML 2 ml VIAL IV PRN (23:31)
[2020-05-22] MEDS: Albuterol HFA INHALER 8 gm MDI INH PRN ×3 (02:49→21:42)
[2020-05-22] MEDS: Heparin 5000 UNITS/ML 1 mL VIAL SUBCUT SCH ×3 (05:14→21:43)
[2020-05-22] MEDS: Pantoprazole VIAL 40 MG VIAL IV SCH (07:50)
[2020-05-22] MEDS: Lidocaine Patch REMOVE PATCH PATCH OFF SCH (21:43)
[2020-05-23] MEDS: Albuterol HFA INHALER 8 gm MDI INH PRN ×2 (01:30→08:26)
[2020-05-23] MEDS: Heparin 5000 UNITS/ML 1 mL VIAL SUBCUT SCH (05:45)
[2020-05-23] MEDS: Pantoprazole VIAL 40 MG VIAL IV SCH (08:29)
[2020-05-23 11:24] VITALS: BP 126/62
== END 2020-05-23 13:40 | disposition home or self-care (01) | DRG 329 ==
LOC: ED 09:55 → AA 09:55 → ED 16:41 → SSU 20:21 → MED 04-12 05:22 → SSU 04-22 13:06
PROVIDERS: ADMIT Surgery; ATTEND Surgery

== ENCOUNTER 2021-01-28 07:33 | Observation (INO) ==
[2021-01-28 09:09] LABS: Hematocrit 37 % (42-52); Hemoglobin 12.4 g/dL (14.0-18.0); Mean Corpuscular HGB Conc 33 g/dL (31-36); Mean Corpuscular Hemoglobin 31 pg (27-31); Mean Corpuscular Volume 92 fL (80-94); Platelet Count 193 10^3/uL (150-450); Red Blood Count 4.03 10^6 /uL (4.18-5.48); Red Cell Distribution Width 18 % (10-15); White Blood Count 24.5 10^3/uL (3.5-10.8)
[2021-01-28 09:33] LABS: Albumin 3.8 g/dL (3.2-5.2); Albumin/Globulin Ratio 1.3 (1-3); Calcium 9.7 mg/dL (8.6-10.3); Potassium 3.8 mmol/L (3.5-5.0); Total Bilirubin 0.5 mg/dL (0.2-1.0); Total Protein 6.8 g/dL (6.4-8.9)
[2021-01-28] MEDS ORDERED: Iohexol 300 (CONTRAST) 10 ML SDV IV ONE (09:42)
[2021-01-28 10:05] LABS: ABS Basophils 0.1 10^3/ul (0-0.2); ABS Lymphocytes 1.3 10^3/ul (1.0-4.8); ABS Monocytes 1.6 10^3/ul (0-0.8); ABS Neutrophils 21.5 10^3/ul (1.5-7.7); Lymphocyte % 5.5 %
[2021-01-28] MEDS ORDERED: Cefepime 2 GM in Dextrose 2 GM/50 ML BAG IV ONE (10:07)
[2021-01-28] MEDS ORDERED: Lactated Ringers 1000 ml BAG 1,000 ML IV ONE (10:48)
[2021-01-28 13:40] LABS: Rapid COVID-19 Molecular Undetected (Undetected)
[2021-01-28 13:52] LABS: TSH Ultra Thyroid Stim Horm 2.39 mcIU/mL (0.34-5.60)
[2021-01-28 14:02] LABS: Urine Appearance Turbid; Urine Bilirubin Negative (Negative); Urine Blood 1+ (Negative); Urine Color Amber; Urine Glucose Negative (Negative); Urine Ketones Negative (Negative); Urine Nitrite Positive (Negative); Urine Protein 2+(100 mg/dL) (Negative); Urine Specific Gravity 1.028 (1.002-1.030); Urine Urobilinogen Negative (Negative)
[2021-01-28 14:07] LABS: Urine Bacteria Absent (Absent); Urine Red Blood Cell 3+(>10/hpf) (Absent); Urine White Blood Cell Absent (Absent)
[2021-01-28] MEDS ORDERED: HYDROmorphone 0.5 MG/0.5 ML SYRINGE ONE (14:35)
[2021-01-28] MEDS: NS 0.9% 1000 ml BAG 1,000 ML IV SCH (15:19)
[2021-01-28] MEDS ORDERED: HYDROmorphone 0.5 MG/0.5 ML SYRINGE IV PRN (20:55)
[2021-01-29] MEDS: NS 0.9% 1000 ml BAG 1,000 ML IV SCH ×2 (01:22→13:21)
[2021-01-29 06:37] LABS: ABS Basophils 0.1 10^3/ul (0-0.2); ABS Eosinophils 0.1 10^3/ul (0-0.6); ABS Lymphocytes 1.9 10^3/ul (1.0-4.8); ABS Monocytes 0.9 10^3/ul (0-0.8); ABS Neutrophils 6.6 10^3/ul (1.5-7.7); Eosinophil % 0.7 %; Hematocrit 35 % (42-52); Hemoglobin 11.5 g/dL (14.0-18.0); Lymphocyte % 19.5 %; Mean Corpuscular HGB Conc 33 g/dL (31-36); Mean Corpuscular Hemoglobin 31 pg (27-31); Mean Corpuscular Volume 92 fL (80-94); Mean Platelet Volume 7.9 fL (7.4-10.4); Platelet Count 176 10^3/uL (150-450); Red Blood Count 3.75 10^6 /uL (4.18-5.48); Red Cell Distribution Width 18 % (10-15); White Blood Count 9.5 10^3/uL (3.5-10.8)
[2021-01-29 06:49] LABS: Albumin 3.3 g/dL (3.2-5.2); Albumin/Globulin Ratio 1.3 (1-3); Calcium 8.7 mg/dL (8.6-10.3); Globulin 2.5 g/dL (2-4); Potassium 3.8 mmol/L (3.5-5.0); Total Bilirubin 0.5 mg/dL (0.2-1.0); Total Protein 5.8 g/dL (6.4-8.9)
[2021-01-30] MEDS: NS 0.9% 1000 ml BAG 1,000 ML IV SCH (06:18)
[2021-01-30] MEDS ORDERED: Triamterene/HCTZ 75/50 mg 1 TAB PO SCH (09:00)
[2021-01-30 11:50] VITALS: BP 146/79
== END 2021-01-30 16:25 | disposition home or self-care (01) ==
LOC: ED 07:33 → SSU 07:33
PROVIDERS: ADMIT Internal Medicine Hematology & Oncology; ATTEND Internal Medicine Hematology & Oncology

== ENCOUNTER 2021-04-29 23:40 | Inpatient (IN) ==
[2021-04-29] MEDS ORDERED: NS 0.9% 1000 ml BAG 1,000 ML IV ONE (23:51)
[2021-04-29] MEDS ORDERED: Ondansetron 4 mg VIAL 2 MG/ML 2 ml VIAL IV ONE (23:53)
[2021-04-29] MEDS ORDERED: fentaNYL 100 mcg/2 ml 50 MCG/ML VIAL IV SLOW PU ONE (23:53)
[2021-04-30 00:23] LABS: Hematocrit 37 % (42-52); Hemoglobin 12.1 g/dL (14.0-18.0); Mean Corpuscular HGB Conc 32 g/dL (31-36); Mean Corpuscular Hemoglobin 29 pg (27-31); Mean Corpuscular Volume 90 fL (80-94); Mean Platelet Volume 7.3 fL (7.4-10.4); Platelet Count 235 10^3/uL (150-450); Red Blood Count 4.17 10^6 /uL (4.18-5.48); Red Cell Distribution Width 17 % (10-15); White Blood Count 8.7 10^3/uL (3.5-10.8)
[2021-04-30 00:50] LABS: ALT 29 U/L (7-52); Albumin 3.7 g/dL (3.2-5.2); Albumin/Globulin Ratio 1.1 (1-3); Alkaline Phosphatase 118 U/L (35-149); Blood Urea Nitrogen 27 mg/dL (6-24); C Reactive Protein 10.91 mg/L (<8.01); CO2 Carbon Dioxide 25 mmol/L (22-32); Calcium 9.3 mg/dL (8.6-10.3); Chloride 104 mmol/L (101-111); Creatine Kinase 57 U/L (10-223); Globulin 3.4 g/dL (2-4); Glucose 128 mg/dL (70-100); Lipase 27 U/L (11.0-82.0); Sodium 137 mmol/L (135-145); Total Protein 7.1 g/dL (6.4-8.9); eGFR CKD-EPI 61.1 (>60)
[2021-04-30 01:08] LABS: Anion Gap 8 mmol/L (2-11)
[2021-04-30 01:15] LABS: Urine Appearance Cloudy; Urine Bacteria Absent (Absent); Urine Bilirubin Negative (Negative); Urine Blood 3+ (Negative); Urine Glucose 1+(50 mg/dL) (Negative); Urine Ketones Negative (Negative); Urine Nitrite Negative (Negative); Urine Protein 1+(30 mg/dL) (Negative); Urine Red Blood Cell 3+(>10/hpf) (Absent); Urine Specific Gravity 1.011 (1.002-1.030); Urine Urobilinogen Negative (Negative); Urine White Blood Cell 3+(>20/hpf) (Absent)
[2021-04-30 01:19] LABS: Urine Color Red
[2021-04-30] MEDS ORDERED: Ondansetron 4 mg VIAL 2 MG/ML 2 ml VIAL IV ONE (01:45)
[2021-04-30] MEDS: fentaNYL 100 mcg/2 ml 50 MCG/ML VIAL IV SLOW PU PRN ×2 (02:00→03:33)
[2021-04-30] MEDS ORDERED: Iodixanol (CONTRAST) 320 MG/ML 100 ML SDV IV ONE (02:08)
[2021-04-30 02:15] LABS: Potassium Redraw 3.9 mmol/L (3.5-5.0)
[2021-04-30 03:55] LABS: RBC Morphology Normal (Normal)
[2021-04-30 03:56] LABS: ABS Basophils 0.1 10^3/ul (0-0.2); ABS Lymphocytes 1.7 10^3/ul (1.0-4.8); ABS Monocytes 0.7 10^3/ul (0-0.8); ABS Neutrophils 6.2 10^3/ul (1.5-7.7); Eosinophil % 0.5 %; Lymphocyte % 19.3 %
[2021-04-30] MEDS ORDERED: Lactated Ringers 1000 ml BAG 1,000 ML IV SCH ×2 (05:00→11:00)
[2021-04-30] MEDS ORDERED: Ondansetron 4 mg VIAL 2 MG/ML 2 ml VIAL IV PRN (05:08)
[2021-04-30] MEDS ORDERED: Prochlorperazine 5 mg/ml 2 ml VIAL (10 mg) IV PRN (05:47)
[2021-04-30] MEDS ORDERED: HYDROmorphone 0.5 MG/0.5 ML SYRINGE IV PRN (05:47)
[2021-04-30 06:34] LABS: Rapid COVID-19 Molecular Undetected (Undetected)
[2021-04-30 06:45] LABS: Ferritin 631.1 ng/mL (24-336)
[2021-04-30] MEDS: Potassium Citrate 10 meq TAB (NF) PO SCH ×2 (08:24→21:02)
[2021-04-30] MEDS: Triamterene/HCTZ 75/50 mg 1 TAB PO SCH (08:32)
[2021-04-30] MEDS: Potassium Chlor 20 meq TAB.ER PO SCH ×2 (08:33→21:01)
[2021-04-30] MEDS: Multivitamins/Minerals TAB PO SCH (08:33)
[2021-04-30] MEDS: Enoxaparin 40 MG/0.4 ML SYR SUBCUT SCH (08:34)
[2021-04-30] MEDS ORDERED: GENTAMICIN 0.1% TOPICAL SCH (09:00)
[2021-04-30] MEDS ORDERED: Acetaminophen IV 1 GM/100ML 100 ML IV PRN ×2 (11:26→12:18)
[2021-04-30] MEDS: Lactated Ringers 1000 ml BAG 1,000 ML IV SCH ×2 (11:36→20:56)
[2021-04-30] MEDS: Mupirocin 2% OINT TUBE TOPICAL SCH (23:22)
[2021-05-01 06:04] LABS: ABS Basophils 0.1 10^3/ul (0-0.2); ABS Eosinophils 0.1 10^3/ul (0-0.6); ABS Lymphocytes 1.4 10^3/ul (1.0-4.8); ABS Monocytes 0.6 10^3/ul (0-0.8); ABS Neutrophils 5.4 10^3/ul (1.5-7.7); Eosinophil % 1.3 %; Hematocrit 35 % (42-52); Hemoglobin 11.7 g/dL (14.0-18.0); Lymphocyte % 18.9 %; Mean Corpuscular HGB Conc 33 g/dL (31-36); Mean Corpuscular Hemoglobin 30 pg (27-31); Mean Corpuscular Volume 90 fL (80-94); Mean Platelet Volume 7.3 fL (7.4-10.4); Nucleated Red Blood Cells % 0.1; Platelet Count 219 10^3/uL (150-450); Red Blood Count 3.95 10^6 /uL (4.18-5.48); Red Cell Distribution Width 17 % (10-15); White Blood Count 7.5 10^3/uL (3.5-10.8)
[2021-05-01 06:18] LABS: Calcium 9.1 mg/dL (8.6-10.3); Magnesium 1.9 mg/dL (1.9-2.7); Potassium 4.1 mmol/L (3.5-5.0)
[2021-05-01] MEDS: Potassium Citrate 10 meq TAB (NF) PO SCH (08:47)
[2021-05-01] MEDS: Triamterene/HCTZ 75/50 mg 1 TAB PO SCH (08:47)
[2021-05-01] MEDS: Potassium Chlor 20 meq TAB.ER PO SCH ×2 (08:48→22:15)
[2021-05-01] MEDS: Enoxaparin 40 MG/0.4 ML SYR SUBCUT SCH (08:49)
[2021-05-01] MEDS: Multivitamins/Minerals TAB PO SCH (08:49)
[2021-05-01] MEDS: Mupirocin 2% OINT TUBE TOPICAL SCH ×2 (08:49→22:15)
[2021-05-02] MEDS: Potassium Chlor 20 meq TAB.ER PO SCH (10:00)
[2021-05-02] MEDS: Multivitamins/Minerals TAB PO SCH (10:00)
[2021-05-02] MEDS: Enoxaparin 40 MG/0.4 ML SYR SUBCUT SCH (10:01)
[2021-05-02] MEDS: Mupirocin 2% OINT TUBE TOPICAL SCH (10:02)
[2021-05-02] MEDS: Triamterene/HCTZ 75/50 mg 1 TAB PO SCH (10:02)
[2021-05-02 11:16] VITALS: BP 115/72
== END 2021-05-02 14:00 | disposition home or self-care (01) | DRG 389 ==
LOC: ED 23:40 → EDHOLD 04-30 05:03 → SUATTDRO 04-30 05:03 → SSU 04-30 09:05
PROVIDERS: ADMIT Internal Medicine; ATTEND Internal Medicine

== ENCOUNTER 2022-08-04 11:55 | Inpatient (IN) ==
[2022-08-04] MEDS ORDERED: Ondansetron 4 mg VIAL 2 MG/ML 2 ml VIAL IV ONE (12:17)
[2022-08-04 13:09] LABS: ABS Basophils 0.1 10^3/uL (0.0-0.1); ABS Lymphocytes 1.6 10^3/uL (1.0-4.8); ABS Monocytes 1.3 10^3/uL (0.0-1.1); ABS Neutrophils 10.7 10^3/uL (1.5-7.6); ABS Nucleated RBC 0.01 10^3/ul; Eosinophil % 0.2 %; Hematocrit 30.9 % (38-53); Hemoglobin 10.4 g/dL (13.2-16.3); Lymphocyte % 11.5 %; Mean Corpuscular Hemoglobin 28.2 pg (27-33); Mean Corpuscular Hgb Conc 33.5 g/dL (31-36); Mean Corpuscular Volume 84.3 fL (80-97); Mean Platelet Volume 6.8 fL (7.5-11.2); Nucleated Red Blood Cells % 0.1 /100 WBC (0.0-0.4); Platelet Count 376 10^3/uL (150-450); Red Blood Count 3.67 10^6/uL (4.06-5.63); Red Cell Distribution Width 17.6 % (12-17); White Blood Count 13.7 10^3/uL (3.6-10.2)
[2022-08-04 13:29] LABS: Urine Appearance Turbid; Urine Bilirubin Negative (Negative); Urine Blood 1+ (Negative); Urine Color Yellow; Urine Glucose Negative (Negative); Urine Ketones Negative (Negative); Urine Nitrite Negative (Negative); Urine Protein 2+(100 mg/dL) (Negative); Urine Specific Gravity 1.012 (1.002-1.030); Urine Urobilinogen Negative (Negative)
[2022-08-04 13:40] LABS: Urine Bacteria 2+ (Absent); Urine Red Blood Cell 3+(>10/hpf) (Absent); Urine White Blood Cell 3+(>20/hpf) (Absent)
[2022-08-04 13:45] LABS: Albumin 3.4 g/dL (3.2-5.2); Calcium 8.9 mg/dL (8.6-10.3); Creatinine, Serum 1.62 mg/dL (0.67-1.17); Globulin 3.5 g/dL (2-4); Potassium 4.1 mmol/L (3.5-5.0); Total Bilirubin 1.1 mg/dL (0.2-1.0); Total Protein 6.9 g/dL (6.4-8.9); eGFR CKD-EPI 42.9 (>60)
[2022-08-04] MEDS ORDERED: cefTRIAXone 2 gm/50 mL D5W 2 GM/50 ML BAG IV ONE (14:05)
[2022-08-04] MEDS ORDERED: Lactated Ringers 1000 ml BAG 1,000 ML IV ONE (14:05)
[2022-08-04] MEDS ORDERED: Senna TAB 8.6 mg TAB PO PRN (15:50)
[2022-08-04 15:54] LABS: Direct Bilirubin 0.2 mg/dL (0.03-0.18); Indirect Bilirubin 0.9 mg/dL (0.3-1.0)
[2022-08-04 17:00] LABS: TSH Ultra Thyroid Stim Horm 1.38 mcIU/mL (0.34-5.60)
[2022-08-04] MEDS: Enoxaparin 40 MG/0.4 ML SYR SUBCUT SCH (17:05)
[2022-08-04 17:36] LABS: C Reactive Protein 259.13 mg/L (<8.01)
[2022-08-04] MEDS ORDERED: Iodixanol (CONTRAST) 320 MG/ML 100 ML SDV IV ONE (21:00)
[2022-08-04] MEDS ORDERED: Lidocaine PATCH 5% PATCH TRANSDERM ONE (21:11)
[2022-08-04] MEDS ORDERED: Lidocaine PATCH 5% PATCH TRANSDERM SCH (22:00)
[2022-08-05 00:52] LABS: Urine Appearance Turbid; Urine Bilirubin Negative (Negative); Urine Blood Negative (Negative); Urine Color Yellow; Urine Glucose Negative (Negative); Urine Ketones Negative (Negative); Urine Nitrite Negative (Negative); Urine Protein 2+(100 mg/dL) (Negative); Urine Specific Gravity 1.039 (1.002-1.030); Urine Urobilinogen Negative (Negative)
[2022-08-05 00:59] LABS: Urine Amorphous Crystals Present (Absent); Urine Bacteria Absent (Absent); Urine Red Blood Cell Absent (Absent); Urine Squamous Epithelial Cell Present (Absent); Urine White Blood Cell 3+(>20/hpf) (Absent); Urine Yeast Present (Absent)
[2022-08-05] MEDS: Acetaminophen IV 1 GM/100ML 1,000 MG/100 ML BAG IV PRN (01:46)
[2022-08-05 05:57] LABS: ABS Basophils 0.1 10^3/uL (0.0-0.1); ABS Eosinophils 0.1 10^3/uL (0.0-0.5); ABS Lymphocytes 2.3 10^3/uL (1.0-4.8); ABS Monocytes 0.8 10^3/uL (0.0-1.1); ABS Neutrophils 7.7 10^3/uL (1.5-7.6); ABS Nucleated RBC 0.03 10^3/ul; Eosinophil % 0.8 %; Hematocrit 27.2 % (38-53); Hemoglobin 9.1 g/dL (13.2-16.3); Lymphocyte % 20.8 %; Mean Corpuscular Hemoglobin 28.1 pg (27-33); Mean Corpuscular Hgb Conc 33.4 g/dL (31-36); Mean Platelet Volume 6.8 fL (7.5-11.2); Nucleated Red Blood Cells % 0.2 /100 WBC (0.0-0.4); Platelet Count 385 10^3/uL (150-450); Red Blood Count 3.24 10^6/uL (4.06-5.63); Red Cell Distribution Width 17.7 % (12-17)
[2022-08-05 06:37] LABS: Calcium 8.4 mg/dL (8.6-10.3); Creatinine, Serum 1.87 mg/dL (0.67-1.17); Potassium 3.9 mmol/L (3.5-5.0); eGFR CKD-EPI 36.1 (>60)
[2022-08-05] MEDS: NS 0.9% 1000 ml BAG 1,000 ML IV SCH ×2 (09:14→18:00)
[2022-08-05 11:56] LABS: Urine Osmo 358 mOsm/kg (150-1150)
[2022-08-05 12:46] LABS: Corrected Retic Count 0.5 % (0.5-1.5); Immature Retic Fraction 0.13; RBC Retic Count 3.44 10^6/ul (4.06-5.63)
[2022-08-05 12:50] LABS: INR 1.31 (0.88-1.18)
[2022-08-05 13:25] LABS: % Iron Saturation 12 % (15-55); .Transferrin 121 mg/dL (203-362); Iron 21 ug/dL (50-212); Total Iron Binding Capacity 169 mcg/dL (250-450); Unsaturated Iron Binding 148 ug/dL
[2022-08-05 13:50] LABS: Folate 19.01 ng/mL (5.90-24.80)
[2022-08-05] MEDS ORDERED: cefTRIAXone 1 gm/50 mL D5W 1 GM/50 ML BAG IV SCH (14:00)
[2022-08-05] MEDS: cefTRIAXone 1 gm/50 mL D5W 1 GM/50 ML BAG IV SCH (14:26)
[2022-08-05] MEDS: Enoxaparin 40 MG/0.4 ML SYR SUBCUT SCH (15:05)
[2022-08-05 15:43] LABS: Vitamin B12 920 pg/mL (180-914)
[2022-08-05] MEDS ORDERED: Ferric Gluconate IV 250 MG in NS 0.9% 250 ml 200 ML IVPB ONE (17:00)
[2022-08-05 17:33] LABS: Ferritin > 1500.0 ng/mL (24-336)
[2022-08-06] MEDS: NS 0.9% 1000 ml BAG 1,000 ML IV SCH ×2 (05:39→14:15)
[2022-08-06 05:59] LABS: ABS Basophils 0.1 10^3/uL (0.0-0.1); ABS Eosinophils 0.1 10^3/uL (0.0-0.5); ABS Lymphocytes 1.8 10^3/uL (1.0-4.8); ABS Monocytes 1.1 10^3/uL (0.0-1.1); ABS Neutrophils 5.3 10^3/uL (1.5-7.6); Eosinophil % 0.7 %; Hematocrit 25.1 % (38-53); Hemoglobin 8.3 g/dL (13.2-16.3); Mean Corpuscular Hemoglobin 27.8 pg (27-33); Mean Corpuscular Volume 84.1 fL (80-97); Mean Platelet Volume 6.8 fL (7.5-11.2); Platelet Count 344 10^3/uL (150-450); Red Blood Count 2.98 10^6/uL (4.06-5.63); Red Cell Distribution Width 17.7 % (12-17); White Blood Count 8.3 10^3/uL (3.6-10.2)
[2022-08-06 06:05] LABS: INR 1.33 (0.88-1.18)
[2022-08-06 06:48] LABS: Creatinine, Serum 1.66 mg/dL (0.67-1.17); Potassium 3.6 mmol/L (3.5-5.0)
[2022-08-06 06:49] LABS: Calcium 7.4 mg/dL (8.6-10.3); Magnesium 1.9 mg/dL (1.9-2.7); eGFR CKD-EPI 41.7 (>60)
[2022-08-06] MEDS ORDERED: Magnesium Sulfate IV 1GM/100ML 1 GM/100 ML BAG IV ONE (07:15)
[2022-08-06] MEDS ORDERED: Potassium Chlor 20 meq TAB.ER PO ONE (07:15)
[2022-08-06] MEDS ORDERED: Ferric Gluconate IV 250 MG in NS 0.9% 250 ml 200 ML IVPB ONE (12:00)
[2022-08-06] MEDS: cefTRIAXone 1 gm/50 mL D5W 1 GM/50 ML BAG IV SCH (14:13)
[2022-08-07] MEDS: Acetaminophen IV 1 GM/100ML 1,000 MG/100 ML BAG IV PRN (00:08)
[2022-08-07 06:21] LABS: Mean Platelet Volume 6.4 fL (7.5-11.2); Platelet Count 345 10^3/uL (150-450)
[2022-08-07 06:26] LABS: INR 1.26 (0.88-1.18)
[2022-08-07] MEDS ORDERED: Ferric Gluconate IV 250 MG in NS 0.9% 250 ml 200 ML IVPB ONE (07:27)
[2022-08-07] MEDS: cefTRIAXone 1 gm/50 mL D5W 1 GM/50 ML BAG IV SCH (14:35)
[2022-08-08] MEDS ORDERED: Ferric Gluconate IV 250 MG in NS 0.9% 250 ml 200 ML IVPB ONE (14:00)
[2022-08-09 05:28] VITALS: BP 134/78
== END 2022-08-09 08:05 | disposition home or self-care (01) | DRG 690 ==
LOC: EDHOLD 11:55 → ED 11:55 → SUATTDRO 15:50 → EDHOLD 17:00 → MED 18:14 → SUATTDRO 08-05 14:25
PROVIDERS: ADMIT Internal Medicine; ATTEND Hospitalist